=== PATIENT | female | born 1980 | race Caucasian/White ===

== ENCOUNTER 2018-07-30 09:39 | Day surgery (SDC) | payer MEDICARE, SELFPAY ==
--- NOTE | 2018-07-30 09:51 | EKG12_ITS ---
Test Reason : PREOP Blood Pressure : / mmHG Vent. Rate : 076 BPM Atrial Rate : 076 BPM P-R Int : 136 ms QRS Dur : 084 ms QT Int : 382 ms P-R-T Axes : 031 011 035 degrees QTc Int : 429 ms Normal sinus rhythm Normal ECG No previous ECGs available Confirmed by LOGAN MEHTA, FAISAL ([id number]), paintings restorer ADELITA STEINER ([id number]) on 08/05/2018 11:12:04 AM Referred By: Ivy Jeter Confirmed By:FAISAL FORD MD
[2018-07-30 10:05] VITALS: BP 156/100; PULSE 81; RESP 16; TEMP 36.2; O2SAT 100; BMI 32.4
[2018-07-30 10:22] LABS: Internal QC Validated? YES +Cl - CLEAR BKGD; Pregnancy, Urine Negative Negative
[2018-07-30] MEDS: Cefazolin 2 GM in 0.9% Normal Saline 100 ML IV (10:58)
[2018-07-30 10:59] LABS: Hematocrit 37.5 % (37-47); Hemoglobin 12.4 g/dl (12.0-15.0); Mean Corp Hgb Conc 33.1 g/gl (32-36); Mean Corpuscular Hgb 29.2 pg (27.0-32.0); Mean Corpuscular Volume 88.4 fL (81-99); Mean Platelet Vol. 8.9 fl (6.2-12.0); Platelet Count 375 K/mm3 (150-450); RBC Distribution Width SD 44.6 fl (35.1-43.9); Red Blood Count 4.24 M/mm3 (4.2-5.4); White Blood Count 10.2 K/mm3 (4.4-11.0)
[2018-07-30] MEDS: Lubricating Jelly 60 GM Tube 30 GM TOPICAL (10:59)
[2018-07-30 11:01] LABS: Scan Indicated on CBC? Y/N NO
--- NOTE | 2018-07-30 11:10 | BLA_PTH ---
PATIENT: DANNA RUIZ [place] [facility] [id number] AGE/SX: 37/F ROOM: RE07/30/[address]: Dr. Ivy Jeter MD : [id number] BED: DIS: 07/30/2018 SPEC #: [id number] RECD: 07/30/18 14:55 STATUS: MARIELA MARIO #: [id number] RADHA: 07/30/18 11:[address]: Ivy Jeter DEPT: SURGICAL PATHOLOGY RECD BY: Patrick Becker ENTERED: 07/31/18 08:20 SP TYPE: BLADDER BX OTHR DR: Dr. Magnolia Jay DO Tissues: Urinary bladder, NOS Procedures: Surgery Specimen Level IV HEADER OPERATION: Cysto, fulguration, bladder biopsy PRE-OP DIAGNOSIS: Bladder lesion TISSUE SUBMITTED: Bladder biopsies MICROSCOPIC DIAGNOSIS Bladder, biopsy: Fragments of urothelial mucosa with chronic inflammation. Negative for malignancy. See comment. SJ:edelmira 08/01/18 COMMENT Detrusor muscle is not identified in the submitted specimen. Correlation with clinical, cystoscopic findings and appropriate follow up are necessary. MICROSCOPIC DESCRIPTION Slides are reviewed. GROSS DESCRIPTION Received in fixative is one container labeled with the patient's name and designated bladder biopsy. The specimen consists of multiple irregular fragments of light bullard soft tissue that in aggregate measure 0.3 x 0.1 x 0.1 cm. The specimen is totally submitted in one cassette. / DIANA:edelmira 07/31/18 TC:3 CPT: 82487
[2018-07-30 11:29] VITALS: BP 148/95; BP 156/100; PULSE 76; RESP 16; TEMP 36.3; O2SAT 95
--- NOTE | 2018-07-30 11:35 | PCM.IMDPSTOP ---
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
--- NOTE | 2018-07-30 11:38 | OP.PN_ITS ---
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
--- NOTE | 2018-07-30 11:39 | DCINST_ITS ---
Discharge Diet: No Restrictions Discharge Activity: May not drive while taking narcotic pain medications., - - no tub bathing for 1 week. May resume sexual activity in: 1 week Call your doctor if you observe: Fever of 101 or Higher, Inability to urinate, Inability to have a bowel movement, Shortness of breath, Chest pain, Calf discomfort, Uncontrolled pain Allergies/Adverse Reactions: Allergies morphine Adverse Reaction (Verified 07/23/18 15:13) Other Medications to take at Discharge Ibuprofen [Motrin] 400 mg PO Q4H 06/09/17 Cephalexin [Keflex] 500 mg PO Q12 3 Days #6 cap 07/30/18 Lisdexamfetamine Dimesylate [Vyvanse] 40 mg PO DAILY 07/30/18 Oxycodone HCl/Acetaminophen [Percocet 5/325] 1 - 2 tab PO Q6H PRN PRN 7 Days #30 tab 07/30/18 The following prescriptions were given: Oxycodone HCl/Acetaminophen [Percocet 5/325] 1 - 2 tab PO Q6H PRN PRN 7 Days #30 tab PRN Reason: Pain Cephalexin [Keflex] 500 mg PO Q12 3 Days #6 cap Primary Care Physician: Magnolia Jay DO [Primary Care Provider] - Test Results: Test results from this visit will be discussed in further detail at your follow- up appointment, if applicable. Please Follow Up With: Ivy Jeter MD When: 1 week, call for appt Proposed Discharge Date: 07/30/18
--- NOTE | 2018-07-30 11:39 | PCM.OPRPT ---
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 She was evaluated with a cystoscopy and treated with Urogesic-Blue. The cystoscopy revealed diffuse areas of erythematous circular lesions approximately 5 mm in size. After discussing all the risks benefits and alternatives she agreed to proceed with biopsy under anesthesia. Patient was taken to the operating room and placed on the operating room head, the neck, airway, IV access and vital signs throughout the case. Once anesthesia was appropriately administered the patient was placed into dorsal lithotomy position was prepped and draped in usual sterile fashion. A cystourethroscopy was performed revealing the same findings is in the office. There are diffuse 5 mm circular lesions identified throughout the bladder mucosa. Possibly consistent with cystitis cystica versus other inflammatory versus neoplastic process. Four biopsy sites were identified and were sent to pathology for further evaluation. These areas were then fulgurated for hemostatic control. At this time the patient's bladder was emptied and she was awakened and taken to the recovery room in good condition. There were no complications during this procedure. Grafts/Implants Used: none - Complications none - Admit VTE Documentation VTE Present on Admission: Yes VTE Mechan Device Prophylaxis: SCD's VTE Pharm Prophylaxis ordered?: No Reason prophylaxis not ordered:: Treatment Not Indicated
--- NOTE | 2018-07-30 11:43 | OP.PCM_ITS ---
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 She was evaluated with a cystoscopy and treated with Urogesic-Blue. The cystoscopy revealed diffuse areas of erythematous circular lesions approximately 5 mm in size. After discussing all the risks benefits and alternatives she agreed to proceed with biopsy under anesthesia. Patient was taken to the operating room and placed on the operating room head, the neck, airway, IV access and vital signs throughout the case. Once anesthesia was appropriately administered the patient was placed into dorsal lithotomy position was prepped and draped in usual sterile fashion. A cystourethroscopy was performed revealing the same findings is in the office. There are diffuse 5 mm circular lesions identified throughout the bladder mucosa. Possibly consistent with cystitis cystica versus other inflammatory versus neoplastic process. Four biopsy sites were identified and were sent to pathology for further evaluation. These areas were then fulgurated for hemostatic control. At this time the patient's bladder was emptied and she was awakened and taken to the recovery room in good condition. There were no comp lications during this procedure. Grafts/Implants Used: none - Complications none - Admit VTE Documentation VTE Present on Admission: Yes VTE Mechan Device Prophylaxis: SCD's VTE Pharm Prophylaxis ordered?: No Reason prophylaxis not ordered:: Treatment Not Indicated
[2018-07-30 11:44] VITALS: BP 156/100; BP 164/106; PULSE 84; RESP 18; O2SAT 97
[2018-07-30 11:52] VITALS: BP 151/96; BP 156/100; PULSE 79; RESP 18; TEMP 36.3; O2SAT 97
[2018-07-30 12:05] VITALS: BP 156/100
== END 2018-07-30 12:13 | disposition home or self-care (01) ==
LOC: SDC 09:43 → AC 09:43
PROVIDERS: Referring Provider Urology; Visit Provider Urology
PROC: 0TBB8ZZ Excision of Bladder, Via Natural or Artificial Opening Endoscopic (ICD-10-PCS; CPT 52204; principal; 2018-07-30 11:00)
DX: N30.20 Other chronic cystitis without hematuria (principal); R39.15 Urgency of urination; R35.1 Nocturia; N39.41 Urge incontinence; D68.51 Activated protein C resistance; D68.59 Other primary thrombophilia; I10 Essential (primary) hypertension; F90.9 Attention-deficit hyperactivity disorder, unspecified type; F17.200 Nicotine dependence, unspecified, uncomplicated
CPT/HCPCS: 00910; 52204; 81025; 85027; 88305; 93005; J7120; J2405

== ENCOUNTER 2018-12-17 06:35 | Day surgery (SDC) | payer MEDICAID, SELFPAY ==
[2018-12-17] VITALS (8 sets, daily range): BP systolic 108–139; BP diastolic 71–95; PULSE 66–72; RESP 16–18; TEMP 36.3–36.6; O2SAT 95–99; BMI 31.4
--- NOTE | 2018-12-17 08:00 | RAD_ITS ---
STUDY: X-RAY - PELVIS REASON FOR EXAM: Female, 37 years old. InterStim therapy TECHNIQUE: One view of the pelvis was obtained. COMPARISON: None. FINDINGS: 2 fluoroscopic images demonstrate stimulator device at the level of the left sacrum. RAD/Pelvis 1 or 2 Views IMPRESSION: As above Electronically Signed: Julio Hernandez MD at 7:38 EST Tel , Service support ,
--- NOTE | 2018-12-17 09:01 | DCINST_ITS ---
Discharge Diet: No Restrictions Discharge Activity: May not drive while taking narcotic pain medications. May resume sexual activity in: 3 weeks Call your doctor if your incision/area has: Sudden Increased Bleeding, Increased Redness, Foul Smelling Discharge, Swelling at the incision site Call your doctor if you observe: Fever of 101 or Higher, Inability to urinate, Shortness of breath, Chest pain, Calf discomfort, Uncontrolled pain Suture Line Care: Avoid Pulling/Pushing, Avoid Pinching/Bending Cleanse incision/area with: Keep Dressing Clean & Dry Allergies/Adverse Reactions: Allergies morphine Adverse Reaction (Verified 12/12/18 08:47) Other Medications to take at Discharge Ibuprofen [Motrin] 400 mg PO Q4H 06/09/17 Lisdexamfetamine Dimesylate [Vyvanse] 40 mg PO DAILY 07/30/18 Fesoterodine Fumarate [Toviaz] 8 mg PO DAILY 12/12/18 Lansoprazole [Prevacid] 30 mg PO DAILY 12/12/18 Metoprolol Tartrate [Lopressor (Beta Karley)] 50 mg PO QHS 12/12/18 Primary Care Physician: Magnolia Jay DO [Primary Care Provider] - Test Results: Test results from this visit will be discussed in further detail at your follow- up appointment, if applicable. Please Follow Up With: Ivy Jeter MD When: 1 week Proposed Discharge Date: 12/17/18
--- NOTE | 2018-12-17 09:18 | OP.PCM_ITS ---
Problem List (1) Urinary urgency Status: Acute (2) Urinary frequency Status: Acute Report of Operation Date of Procedure: 12/17/18 Pre-Operative Diagnosis: urinary urgency and frequency Post-Operative Diagnosis: same Surgery/Procedure Performed:: Interstim Stage 1 Description of Surgical Findings:: right side lead, right side pocket. Good response on all 4 leads Type of Anesthesia:: MAC Estimated Blood Loss (mL): 3cc Description of Procedure: The patient is a 37-year-old female that I have been seeing in the office for refractory urinary urgency and frequency. She has failed first and second line treatments for this urgency and frequency. She has undergone urodynamics and cystoscopy with bladder biopsy. After discussing the risks benefits and alternatives, she agreed to proceed with InterStim stage I. Informed consent was obtained. Patient was taken to the operating room and placed on the operating room table. She was placed in the prone position and was appropriately padded and secured to the table. Anesthesia monitored the head, neck, airway, IV access and vital signs throughout the case. As the patient was being anesthetized, she made a comment, I am a non-productive drug seeker. Once anesthesia was appropriately administered, the patient was prepped and draped in usual sterile fashion. Using fluoroscopic visualization the patient's anatomy was marked out onto her skin. The S3 foramen insertion site was identified and marked. This area was then anesthetized with 1% lidocaine with epinephrine. The S3 foramen on the right side was then intubated with the needle and good judd and toe response were achieved. At this time the guidewire was passed in an incision in the skin was made. The dilator was then used to place the lead into the S3 foramen and positioning was confirmed on fluoroscopic visualization. The lead was tested in all 4 leads received a good judd and toe contraction without ankle or foot rotation. The lead was then tunneled to the selected boot site which was made using a knife and Bovie cautery for hemostatic control. The lead was inserted into the lead extension and fixed using the torque wrench. The lead extension was then tunneled out to a cephalad position to prevent issues with infection. Was then attached to the temporary battery. The incision sites both in the midline and the boot incision site were closed using 3-0 interrupted Vicryl suture followed by 4-0 subcuticular suturing. Dermabond was then allowed to dry on the incision sites. An OpSite followed by cloth tape was placed over the battery. The patient was then awakened and taken to the recovery room in go od condition. There were no complications during this procedure. Grafts/Implants Used: Interstim Stage 1 lead - Complications none - Admit VTE Documentation VTE Present on Admission: No VTE Mechan Device Prophylaxis: None VTE Pharm Prophylaxis ordered?: No Reason prophylaxis not ordered:: Treatment Not Indicated
--- NOTE | 2018-12-24 10:43 | PCM.HP.STD ---
Problem List (1) Urinary urgency Status: Acute (2) Urinary frequency Status: Acute History of Present Illness Date of Admission: 12/17/18 Chief Complaint: Urinary frequency, urinary urgency, nocturia. The patient is a 37 year old F with severe urinary urgency, frequency and nocturia. She has been unable to sleep through the night for several months. She has failed level 1 management, multiple anticholinergics as well as a beta 3 agonist. She has been evaluated with cystoscopy, bladder biopsy and urodynamics. After discussing all the risks benefits and alternatives, she decided to proceed with InterStim stage I for treatment of her symptoms. All questions regarding the procedure were answered. Past Medical History Allergies morphine Adverse Reaction (Verified 12/12/18 08:47) Other Home Medications: Ambulatory Orders Medication Instructions Recorded Ibuprofen [Motrin] 400 mg PO Q4H 06/09/17 Lisdexamfetamine Dimesylate 40 mg PO DAILY 07/30/18 [Vyvanse] Fesoterodine Fumarate [Toviaz] 8 mg PO DAILY 12/12/18 Lansoprazole [Prevacid] 30 mg PO DAILY 12/12/18 Metoprolol Tartrate [Lopressor 50 mg PO QHS 12/12/18 (beta mima)] Surgical History: - - cystoscopy and bladder biopsy Lives: With Family Smoking Status: Current every day smoker Tobacco Use: Cigarettes Review of Systems Constitutional: Denies: Anorexia, Chills, Fever, Night Sweats Eyes: Denies: Vision Change HEENT: Denies: Difficulty Swallowing, Hard of Hearing, Visual Changes Cardiovascular: Denies: Chest Pain, Chest Tightness Respiratory: Denies: Cough, Shortness of Breath Gastrointestinal: Denies: Abdominal Pain Genitourinary: Reports: Frequency, Nocturia, Urgency Gynecological: Denies: Breast symptoms Musculoskeletal: Denies: Muscle pain Skin: Denies: Rash Neurological: Denies: Balance problems Endocrine: Denies: Change in Body Habitus VTE Information - Inpt Only VTE Present on Admission: No - Interstim needs access without SCD to feet - Physical Exam General: Alert, Oriented x3, Cooperative HEENT: Atraumatic, Normocephalic Oral: Dry Mucosa Neck: Supple, Trachea Midline Lungs: Clear to auscultation, Normal air movement Cardiovascular: Regular rate, Regular Rhythm Abdomen: Soft, Non Tender, Non-Distended Extremities: No clubbing Skin: No rashes Musculoskeletal: No Tenderness to Palpation of Joints or Extremities Neurological: Cranial nerves II-XII grossly intact, Neuro grossly intact Psych/Mental Status: Normal Affect Vital Signs Temp Pulse Resp BP Pulse Ox 97.3 F L 66 18 118/84 H 95 12/17/18 09:27 12/17/18 09:27 12/17/18 09:27 12/17/18 09:27 12/17/18 09:27 Oxygen Delivery Method Room Air Weight: 80.6 kg Body Mass Index (BMI) 31.4 Assessment/Plan All Active Problems Bladder neoplasm of uncertain malignant potential (Acute) Urinary urgency (Acute) Urinary frequency (Acute) Interstim Stage 1
== END 2018-12-17 10:19 | disposition home or self-care (01) ==
LOC: SDC 06:35 → AC 06:37
PROVIDERS: Referring Provider Urology
PROC: (CPT 64581; principal; 2018-12-17 07:50)
DX: R35.0 Frequency of micturition (principal); R39.15 Urgency of urination; R35.1 Nocturia; I10 Essential (primary) hypertension; F17.210 Nicotine dependence, cigarettes, uncomplicated; Z79.899 Other long term (current) drug therapy; Z86.2 Personal history of diseases of the blood and blood-forming organs and certain disorders involving the immune mechanism
CPT/HCPCS: 64581; 72170; 76000; J7120; C1778

== ENCOUNTER 2018-12-31 06:26 | Day surgery (SDC) | payer MEDICAID, SELFPAY ==
[2018-12-17 07:02] VITALS: BMI 31.4
[2018-12-31] VITALS (7 sets, daily range): BP systolic 113–141; BP diastolic 64–95; PULSE 68–87; RESP 14–18; TEMP 35.7–36.7; O2SAT 93–99; BMI 30.7
--- NOTE | 2018-12-31 09:05 | OP.PCM_ITS ---
Problem List (1) Urinary urgency Status: Acute (2) Urinary frequency Status: Acute Report of Operation Date of Procedure: 12/31/18 Pre-Operative Diagnosis: urinary urgency and frequency Post-Operative Diagnosis: same Surgery/Procedure Performed:: Interstim Stage 2 Description of Surgical Findings:: no complications, no sign of infection, no impedances. Type of Anesthesia:: MAC Special Medications: vancomycin Description of Procedure: The patient is a 38-year-old female that has passed her stage I InterStim with the lead in the right side. She has had over a 50% reduction in the urgency and frequency to urinate. All benefits and alternatives were discu ssed and the patient agreed to proceed with intervention. The patient was taken to the operating room and placed in a prone position on the operating room table. She was secured and appropriately padded to the table. Anesthesia monitored the head, neck, airway, IV access and vital signs throughout the case. Once anesthesia was appropriately administered, the patient was prepped and draped in usual sterile fashion. The is a incision site over the boot was identified and infiltrated with lidocaine. The incision was opened and the boot was identified and brought into the operative field. The sutures on the boot were cut and using the torque wrench the lead was removed from the boot. The pocket size was enlarged to fit the IPG. Hemostasis was achieved with Bovie cautery. The lead was dried and inserted into the IPG and secured with the torque wrench. The IPG was then placed into the pocket without difficulty. Impedances were checked and were found to be appropriate. At this time the incision was closed in 2 layers with 3-0 Vicryl interrupted suture followed by 4-0 subcuticular suture. The incision was then coated with Dermabond. The patient was awakened and taken to the recovery room in good condition. There were no complications during this procedure. Grafts/Implants Used: Interstim IPG - Complications None - Admit VTE Documentation VTE Present on Admission: Yes VTE Mechan Device Prophylaxis: SCD's VTE Pharm Prophylaxis ordered?: No Reason prophylaxis not ordered:: Treatment Not Indicated
--- NOTE | 2018-12-31 09:07 | DCINST_ITS ---
Discharge Diet: No Restrictions Discharge Activity: May not drive while taking narcotic pain medications., May Shower May resume sexual activity in: No Restrictions Call your doctor if your incision/area has: Continuous Slow Oozing, Sudden Increased Bleeding, Increased Pain/ Swelling, Increased Redness, Foul Smelling Discharge, Swelling at the incision site Call your doctor if you observe: Fever of 101 or Higher, Inability to urinate, Shortness of breath, Chest pain, Calf discomfort Suture Line Care: Avoid Pulling/Pushing, Avoid Pinching/Bending Allergies/Adverse Reactions: Allergies morphine Adverse Reaction (Verified 12/12/18 08:47) Other Medications to take at Discharge Ibuprofen [Motrin] 400 mg PO Q4H 06/09/17 Lisdexamfetamine Dimesylate [Vyvanse] 40 mg PO DAILY 07/30/18 Fesoterodine Fumarate [Toviaz] 8 mg PO DAILY 12/12/18 Lansoprazole [Prevacid] 30 mg PO DAILY 12/12/18 Metoprolol Tartrate [Lopressor (beta mima)] 50 mg PO QHS 12/12/18 Cephalexin [Keflex] 500 mg PO Q12 3 Days #6 cap 12/31/18 Oxycodone HCl/Acetaminophen [Percocet 5/325] 1 tab PO Q6H PRN PRN 7 Days #20 tab 12/31/18 The following prescriptions were given: Oxycodone HCl/Acetaminophen [Percocet 5/325] 1 tab PO Q6H PRN PRN 7 Days #20 tab PRN Reason: Pain Cephalexin [Keflex] 500 mg PO Q12 3 Days #6 cap Primary Care Physician: Magnolia Jay DO [Primary Care Provider] - Test Results: Test results from this visit will be discussed in further detail at your follow- up appointment, if applicable. Please Follow Up With: Ivy Jeter MD When: 1 week, call for appt for Interstim teaching. Proposed Discharge Date: 12/31/18
== END 2018-12-31 09:21 | disposition home or self-care (01) ==
LOC: SDC 06:27 → AC 06:28
PROVIDERS: Referring Provider Urology; Visit Provider Urology
PROC: (CPT 64581; principal; 2018-12-31 07:50)
DX: R39.15 Urgency of urination (principal); R35.0 Frequency of micturition; D68.51 Activated protein C resistance; D68.59 Other primary thrombophilia; I10 Essential (primary) hypertension; F90.9 Attention-deficit hyperactivity disorder, unspecified type; F17.210 Nicotine dependence, cigarettes, uncomplicated; Z79.899 Other long term (current) drug therapy
CPT/HCPCS: 64581; 64590; J7120; C1767

== ENCOUNTER 2019-02-11 06:01 | Day surgery (SDC) | payer MEDICAID, SELFPAY ==
[2018-12-31 06:42] VITALS: BMI 30.7
[2019-02-11] VITALS (7 sets, daily range): BP systolic 117–142; BP diastolic 70–100; PULSE 63–76; RESP 14–46; TEMP 36.1–36.4; O2SAT 96–100; BMI 30.8
[2019-02-11] MEDS: Vancomycin IV 1,000 MG/200 ML BAG 200 MG IV (06:38)
--- NOTE | 2019-02-11 08:00 | RAD_ITS ---
STUDY: X-RAY - PELVIS REASON FOR EXAM: Female, 38 years old. Revised interstem therapy 1 TECHNIQUE: 3 view of the pelvis was obtained. COMPARISON: None. FINDINGS: Intraoperative spot fluoroscopy images were obtained. Placement of a medical support devices are the sacrum and coccyx. Bilateral pleural wires are noted. Please see performing physician's report for full details. RAD/Pelvis 1 or 2 Views IMPRESSION: As above Electronically Signed: Rolando Perez DO at 10:37 EDT Tel , Service support ,
--- NOTE | 2019-02-11 09:07 | PCM.OPRPT ---
Problem List (1) Urinary urgency Status: Acute (2) Urinary frequency Status: Acute Report of Operation Date of Procedure: 02/11/19 Pre-Operative Diagnosis: urinary urgency and urinary frequency Post-Operative Diagnosis: same Surgery/Procedure Performed:: Interstim Revision with Lead Replacement. Description of Surgical Findings:: New lead on patient's left side in good position in S3, judd on all 4 leads. Old lead left insitu as it worked really well, but patient was having pain. Type of Anesthesia:: MAC Special Medications: Vancomycin Specimen's removed: none Estimated Blood Loss (mL): 3cc Description of Procedure: The patient is a 38-year-old female who had a successful InterStim placed. She presented to the office 1 week ago with complaints of pain at the lead insertion site. The pain did not extend down her leg. It did not go away when the programming was adjusted. She agreed to proceed with lead replacement. All risks benefits and alternatives were discussed and informed consent was obtained. Patient was taken to the operating room and placed in a prone position on the operating room table. Anesthesia monitored the head, neck, airway, IV access and vital signs throughout the case. Once anesthesia was appropriately administered the patient was prepped and draped in usual sterile fashion. Fluoroscopy was utilized for appropriate positioning of the new lead. The lead was inserted on the patient's left side and judd response was obtained on all 4 leads. 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 The lead was inserted in usual fashion with use of a guidewire followed by the dilator. The curved obturator was used for lead placement. Once it was in good position the dilator sheath was removed. The incision over the IPG was infiltrated with lidocaine and then opened. Caution was used and dissection in the IPG was identified without injuring the existing lead. The lead was removed from the IPG using the torque wrench. The pocket site was deepened. The new lead was then tunneled into position of the existing pocket site. It was placed into the IPG and the torque wrench secured it in location. It was placed into the new deepened pocket site without difficulty. Was tested for impedances and found to be appropriate. The pocket was closed in 2 layers using 3-0 interrupted Vicryl followed by 4-0 subcuticular suturing. The lead on the patient's right side worked very well for her and I made the decision to leave the lead in situ for the time being. The new lead insertion site was closed using 4-0 Vicryl. Dermabond was placed over both incisions. Following appropriate drying time, the patient was awakened and taken to the recovery room in good condition. There were no complications during this procedure. Grafts/Implants Used: New Interstim lead - Complications none - Admit VTE Documentation VTE Present on Admission: No VTE Mechan Device Prophylaxis: None Reason prophylaxis not ordered:: Treatment Not Indicated
--- NOTE | 2019-02-11 09:11 | DCINST_ITS ---
Discharge Diet: No Restrictions Discharge Activity: May not drive while taking narcotic pain medications. May shower in (days): 2 May resume sexual activity in: 1 week Call your doctor if your incision/area has: Continuous Slow Oozing, Increased Pain/ Swelling, Increased Redness, Foul Smelling Discharge, Swelling at the incision site Call your doctor if you observe: Fever of 101 or Higher, Inability to urinate, Shortness of breath, Chest pain, Calf discomfort, Uncontrolled pain Allergies/Adverse Reactions: Allergies morphine Adverse Reaction (Verified 02/05/19 13:17) Other Medications to take at Discharge Ibuprofen [Motrin] 400 mg PO Q4H PRN 06/09/17 Lisdexamfetamine Dimesylate [Vyvanse] 40 mg PO DAILY 07/30/18 Metoprolol Tartrate [Lopressor (beta mima)] 50 mg PO QHS 12/12/18 Primary Care Physician: Magnolia Jay DO [Primary Care Provider] - Test Results: Test results from this visit will be discussed in further detail at your follow- up appointment, if applicable. Please Follow Up With: Ivy Jeter MD When: 2 weeks, call office for appt. Proposed Discharge Date: 02/11/19
[2019-02-11] MEDS: Acetaminophen 325 MG Tablet PO (10:03)
[2019-02-11] MEDS: oxyCODONE 5 MG Tablet PO (10:03)
== END 2019-02-11 10:23 | disposition home or self-care (01) ==
LOC: SDC 06:02 → AC 06:03
PROVIDERS: Referring Provider Urology; Visit Provider Urology
PROC: (CPT 64585; principal; 2019-02-11 07:50)
DX: R35.0 Frequency of micturition (principal); R39.15 Urgency of urination; N30.10 Interstitial cystitis (chronic) without hematuria; N39.41 Urge incontinence; R35.1 Nocturia; R10.2 Pelvic and perineal pain; D68.51 Activated protein C resistance; D68.59 Other primary thrombophilia; I10 Essential (primary) hypertension; F90.9 Attention-deficit hyperactivity disorder, unspecified type; F17.200 Nicotine dependence, unspecified, uncomplicated; Z79.899 Other long term (current) drug therapy; Z87.19 Personal history of other diseases of the digestive system; Z86.2 Personal history of diseases of the blood and blood-forming organs and certain disorders involving the immune mechanism
CPT/HCPCS: 00300; 64585; 72170; 76000; J7120; C1778

== ENCOUNTER 2020-03-11 07:34 | Day surgery (SDC) | payer MEDICAID, SELFPAY ==
[2019-02-11 06:21] VITALS: BMI 30.8
[2020-03-11] VITALS (9 sets, daily range): BP systolic 109–171; BP diastolic 65–95; PULSE 46–79; RESP 15–16; TEMP 36.2–36.4; O2SAT 92–98; BMI 33.8
[2020-03-11] MEDS: Lactated Ringers 1,000 ML 100 ML IV (08:15)
--- NOTE | 2020-03-11 09:16 | PCM.HP.STD ---
Problem List (1) Ureteral calculus, left Status: Acute (2) Hydronephrosis Status: Acute History of Present Illness Date of Admission: 03/11/20 Chief Complaint: left flank pain The patient is a 39 year old F who has been having approximately 2 weeks of left-sided flank pain along with nausea and vomiting. She was seen in the emergency room and found to have a 7 mm UVJ calculus with hydronephrosis. She now presents for insertion of left ureteral stent secondary to fever at home this week up to 102. We discussed that we will plan on managing the stone after decompression and drainage of the kidney. Risks benefits and alternatives were discussed including that of COVID-19. The patient understands and desires to proceed. Past Medical History Allergies morphine Adverse Reaction (Verified 03/11/20 07:55) Other Home Medications: Ambulatory Orders Medication Instructions Recorded Ibuprofen [Motrin] 400 mg PO Q4H PRN 06/09/17 Lisdexamfetamine Dimesylate 40 mg PO DAILY 07/30/18 [Vyvanse] Metoprolol Tartrate [Lopressor 50 mg PO QHS 12/12/18 (beta mima)] Cephalexin [Keflex] 500 mg PO 4X/DAY 03/10/20 Surgical History: - - cystoscopy and bladder biopsy Smoking Status: Current every day smoker Tobacco Use: Cigarettes Review of Systems Constitutional: Reports: Fever, Fatigue Eyes: Denies: Vision Change HEENT: Denies: Difficulty Hearing Cardiovascular: Denies: Chest Pain, Chest Pressure Respiratory: Denies: Shortness of Breath Gastrointestinal: Reports: Abdominal Pain, Nausea, Vomiting Genitourinary: Reports: Frequency, Urgency Musculoskeletal: Denies: Muscle pain Skin: Denies: Wounds Neurological: Denies: Difficulty swallowing VTE Information - Inpt Only VTE Present on Admission: Yes VTE Mechan Device Prophylaxis: SCD's VTE Pharm Prophylaxis ordered?: No Reason prophylaxis not ordered:: Treatment Not Indicated Patient Problems: Active and Suspected Problems Ureteral calculus, left (Acute) Hydronephrosis (Acute) - Physical Exam Vitals/I&O's: Vital Signs Temp Pulse Resp BP Pulse Ox 97.6 F L 76 15 152/93 H 98 03/11/20 08:01 03/11/20 08:01 03/11/20 08:01 03/11/20 08:01 03/11/20 08:01 Oxygen Delivery Method Room Air Weight: 83.9 kg Body Mass Index (BMI) 33.8 General: Alert, Oriented x3, Cooperative, No apparent distress HEENT: Atraumatic, Normocephalic Oral: Moist Mucosa Neck: Supple, Trachea Midline Lungs: Normal air movement Cardiovascular: Regular rate, Regular Rhythm Abdomen: Soft, Non Tender, Non-Distended Skin: No rashes Musculoskeletal: No Muscle Wasting Neurological: Cranial nerves II-XII grossly intact, Neuro grossly intact Psych/Mental Status: Normal Affect Microbiology Past 72 Hours 03/10/20 17:00 Mucosa - Nasopharyngeal Coronavirus COVID-19 PCR - Final Laboratory Results 03/11/20 09:20: COVID-19 (KALANI) Cancelled Current Medications Lactated Ringer's () 1,000 mls @ 100 mls/hr IV .Q10H JANI Last Admin: 03/11/20 08:15 Dose: 100 mls/hr Documented by: Assessment/Plan All Active Problems Bladder neoplasm of uncertain malignant potential (Acute) Urinary urgency (Acute) Urinary frequency (Acute) Ureteral calculus, left (Acute) Hydronephrosis (Acute) cystoscopy with left ureteral stent insertion stone treatment in 1-2 weeks Procedure Criteria Procedure Type: Essential Procedure Essential: Yes Criteria Statement: On 12/30/2019 the [place] [facility] ([facility]) Public Order signed by [facility] Director Kate Rondon M.D., regarding the Management of Non-Essential Surgeries and Procedures for the purpose of preserving Personal Protective Equipment (PPE) and critical hospital capacity and resources within [place] went into effect as of 12/31/2019 at 5:00PM. According to the [facility] Public Order: This action will remain in full force and effect until the State of Emergency declared by the Governor no longer exists or the Director of the [facility] rescinds or modifies this Order. This [facility] order stated all non-essential or elective surgeries and procedures that utilize PPE should be delayed unless there is undue risk to the current or future health of a patient. After reviewing the aforementioned [facility] Public Order and the patient's clinical case, I have determined that the scheduled procedure meets the criteria to go forward. Risk to Patient if Procedure Delayed: Risk of rapidly worsening to severe symptoms if delayed - risk of left ureteral obstruction with sepsis
--- NOTE | 2020-03-11 09:21 | DCINST_ITS ---
Discharge Diet: No Restrictions Discharge Activity: May not drive while taking narcotic pain medications. May resume sexual activity in: 2 weeks Call your doctor if you observe: Fever of 101 or Higher, Inability to urinate, Inability to have a bowel movement Allergies/Adverse Reactions: Allergies morphine Adverse Reaction (Verified 03/11/20 07:55) Other Medications to take at Discharge Ibuprofen [Motrin] 400 mg PO Q4H PRN 06/09/17 Lisdexamfetamine Dimesylate [Vyvanse] 40 mg PO DAILY 07/30/18 Metoprolol Tartrate [Lopressor (beta mima)] 50 mg PO QHS 12/12/18 Cephalexin [Keflex] 500 mg PO 4X/DAY 03/10/20 Primary Care Physician: Magnolia Jay DO [Primary Care Provider] - Test Results: Test results from this visit will be discussed in further detail at your follow- up appointment, if applicable. Please Follow Up With: Ivy Jeter MD When: call office for instructions Proposed Discharge Date: 03/11/20
--- NOTE | 2020-03-11 09:22 | OP.PCM_ITS ---
Problem List (1) Ureteral calculus, left Status: Acute (2) Hydronephrosis Status: Acute Report of Operation Date of Procedure: 03/11/20 Pre-Operative Diagnosis: left ureteral calculus with hydronephrosis Post-Operative Diagnosis: same Surgery/Procedure Performed:: cystoscopy with left ureteral stent insertion Description of Surgical Findings:: The stone is easily seen on fluoroscopy in the distal left ureter Type of Anesthesia:: General Specimen's removed: none Estimated Blood Loss (mL): 2cc Description of Procedure: The patient is a 39-year-old female who presented to the office yesterday after having been in the emergency room for uncontrolled pain in the left flank along with nausea and vomiting. On CT scan she was found to have a 7 mm left ureterovesical junction calculus with hydronephrosis. Risks benefits and alternatives were discussed and she agreed to proceed with a left ureteral stent insertion. The patient was taken to the operating room and placed on the operating room table. Anesthesia monitored the head, neck, airway, IV access and vital signs throughout the case. Once anesthesia was appropriately administered the patient was placed into dorsal lithotomy position and was prepped and draped in usual sterile fashion. 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 The left ureteral orifice was identified in the area of the trigone and was intubated with the 0.035 Glidewire. The stone was easily seen on fluoroscopic visualization. A 6 Lithuanian 24 cm double-J stent was inserted over the wire without difficulty and was positioned inside the renal pelvis with curling in the bladder. The patient's bladder was then emptied and the case was terminated. There were no complications during this procedure. Grafts/Implants Used: 6x24 JJ stent - Complications none - Admit VTE Documentation VTE Present on Admission: Yes VTE Mechan Device Prophylaxis: SCD's VTE Pharm Prophylaxis ordered?: No Reason prophylaxis not ordered:: Treatment Not Indicated
[2020-03-11] MEDS: Cefazolin 2 GM in 0.9% Normal Saline 100 ML IV (09:26)
--- OUTSIDE RECORDS SUMMARY | 2020-07-27 18:21 | XMS RPT_ITS | CCD ---
:1980 External Reference #:[id number] Author Organization [facility] Care Team Providers Name Role Phone WISWELL Unavailable Unavailable WISWELL Unavailable Unavailable WISWELL Unavailable Unavailable WISWELL Unavailable Unavailable WISWELL Unavailable Unavailable WISWELL Unavailable Unavailable Pcp Primary Care Provider Unavailable Yana Cruz Primary Care Provider Pcp Primary Care Provider Unavailable Garrett Jay Primary Care Provider Problems Category Problem Name Status Date Location Abdominal pain Pelvic and perineal pain Active 06-14-2018 - [facility] (0000 0) Unclassified Unknown / UNK(Unknown) Active 06-14-2018 - [facility] (0000 0) Results Result Name Value Range Unit Interpretation Flag Date Location cur on 2020-03-11 CUR . Normal 03-11-2020 [facility] MICRO - Microbiology [facility] ([place]) ([id number]) PROCEDURE: Urine Culture [*1] SOURCE: Urine, Clean Catch BODY SITE: COLLECTED DATE/TIME: 03/09/20 16:14 EDT RECEIVED DATE/TIME: 03/10/2020 19:59 EDT START DATE/TIME: 03/10/2020 19:59 EDT FREE TEXT SOURCE: FINAL REPORTS Final Report [] Verified Date/Time/Personnel: 03/11/2020 13:56 EDT 10,000 - 50,000 cfu/ml Multiple bacterial morphotypes presen t. Probable Contamination. Suggest recollection if clinically indicated. Performing Locations *1: This test was performed at: [facility], [address] [place] [address], [id number]- , U nited [facility] Comment: Performed By: #### CBC, ADIF F, ANEU, LIP, CMP, GFR #### [address] [address] ua on 2020-03-09 Color (U) Yellow Normal 03-09-2020 [facility] ([place]) ([id number]) Comment: Performed By: #### UA, PREGU , UAMICAO #### [address] [address] Glucose (U) [Mass/Vol] Negative Negative mg/dL Normal 020 [facility] ([place]) ([id number]) Comment: Performed By: #### UA, PREGU , UAMICAO #### [address] [address] Ketones Ql (U) Negative Negative Normal 03-09-2020 [facility] ([place]) ([id number]) Comment: Performed By: #### UA, PREGU , UAMICAO #### [address] [address] UA Appear Slightly Cloudy Clear Abnormal 03-09-2020 [facility] ([place]) ([id number]) Comment: Performed By: #### UA, PREGU , UAMICAO #### [address] [address] UA Blood Small Negative Abnormal 03-09-2020 [facility] ([place] ([id number]) Comment: Performed By: #### UA, PREGU , UAMICAO #### [address] [address] UA Leuk Est Moderate Negative Abnormal 03-09-2020 [facility] ([place]) ([id number]) Comment: Performed By: #### UA, PREGU , UAMICAO #### [address] [address] UA Nitrite Negative Negative Normal 03-09-2020 [facility] ([place]) ([id number]) Comment: Performed By: #### UA, PREGU , UAMICAO #### [address] [address] UA pH 7.0 5.0 - 8.0 Normal 03-09-2020 [facility] ([place] ([id number]) Comment: Performed By: #### UA, PREGU , UAMICAO #### [address] [address] UA Protein Negative Negative Normal 03-09-2020 [facility] ([place]) ([id number]) Comment: Performed By: #### UA, PREGU , UAMICAO #### [address] [address] UA Spec Grav 1.020 1.015-1.025 Normal 03-09-2020 [facility] ([place]) ([id number]) Comment: Performed By: #### UA, PREGU , UAMICAO #### [address] [address] UA Specimen Type Clean Catch Normal 03-09-2020 [facility] ([place]) ([id number]) Comment: Performed By: #### UA, PREGU , UAMICAO #### [address] [address] UA Urobilinogen 0.2 0.2-1.0 E.U./dL Normal 03-09-2020 [facility] ([place]) ([id number]) Comment: Performed By: #### UA, PREGU , UAMICAO #### [address] [address] Urobilinogen Qn (U) Negative Negative Normal 03-09-2020 [facility] ([place]) (0000 0) Comment: Performed By: #### UA, PREGU , UAMICAO #### [address] [address] pregu on 2020-03-09 HCG ( test) Ql (U) Negative Normal [facility] ([place]) (0000 0) Comment: Performed By: #### UA, PREGU , UAMICAO #### [address] [address] test (u) int HCG not detected. 03-09-2020 [facility] ([place]) (0000 0) Comment: Performed By: #### UA, PREGU , UAMICAO #### [facility] [address], [place] [address] lip on 2020-03-09 Lipase Level 69 73-393 U/L Low 03-09-2020 [facility] ([place]) ([id number]) Comment: Performed By: #### CBC, ADIF F, ANEU, LIP, CMP, GFR #### [facility] [address], [place] [address] ct abd/pelvis w/ iv contrast only on 2020-03-09 CT ABD/PELVIS W/ ORIGINAL Normal 03-09-2020 [facility] IV CONTRAST ONLY CT ABD/PELVIS W/ IV CONTRAST ONLY [facility] ([place]) ([id number]) Clinical Statement: pain. Up per abdominal pain and pressure for one week. Nausea and vomiting COMPARISON: CT abdomen pelvis 07/24/2018, 06/02/2017 TECHNIQUE: Axial images were obtained from the lung bases through the pubic symphysis after the administration of IV contrast. Coronal and sagittal reformatted images were generated from the axial datas et. This exam was performed according to our departmental dose optimization program, and includes the following measures where applicable: automated exposure control, adjustment of the mAs and/or kVp ac cording to patient size and/ or exam, and an iterative reconstruction algorithm. FINDINGS: There is mild depe ndent atelectasis in lung bases. Included heart chambers are within normal limits in size. No pleural pericardial fluid is seen. Tiny subcentimeter hypodensi ty in the RIGHT hepatic lobe is too small to characterize however statistically favored to be of benign etiology. The liver is otherwise unremarkable in appearance. Diffuse f atty change is not excluded. Gallbladder is absent. The spleen, pancreas, and adrenal glands are within normal limits in appearance. There is bilateral nephrolithiasis similar in appearance to prior you dy. There is mild left-sided pelvocaliectasis and ureteral dilatation to the level of a 7 mm calculus at the LEFT UV junction on image #103 of series 2. This is not seen on the earlier study. There is a LEFT renal exophy tic cyst which appears mildly increased in size from the prior study of 2017, and measures approximately 33 Hounsfield units in density. The urinary bladder is under distended and not evaluated. The uterus is present and normal in appearance. No adnexal masses seen. A dominant follicle is seen in the RIGHT ovary. There is diverticulosis with out evidence of diverticulitis. Otherwise the large and small bowel are normal in course and caliber. No pericecal inflammation is seen. No intra-abdominal free air or fluid is seen. Medical implant in the RIGHT lower back/buttock is incidentally noted. The aorta is nonaneurysmal. No pathologically enlarged abdominal or pelvic lymph node is identified. There are a few scattered prominent retroperitoneal nodes similar appearance to the prior study. No acute osseous abnormality is seen. There is degenerative change in the lumbar spine with moderate to severe lower lumbar spine facet arthropathy. IMPRESSION: There is a calculus at the L EFT UV junction causing mild obstruction. There are bilateral intrarenal calculi also. LEFT renal cortical cyst is larger or new from 2017 and measures approximately 33 Hounsfield units in density. This is considered indeterminate and follow-up with a nonemergent renal ultrasound is suggested.. Other chronic and incidental findings as above. REPORT CORRECTION CORRECTION: LEFT UVJ stone causing mild obstruction. I have personally reviewed t he images of this examination and edited the preliminary report. Roberth Herman MD called these results to HAVEN ZIEGLER on 03/09/2020 5:54 PM. Interpreted By: Roberth Herman MD Preliminary Report By: Giorgio Pompa MD Electronically Signed By: Roberth Herman MD Dictated Date: 03/09/2020 4:48:46 PM Prelim Date: 03/09/2020 4:59:20 PM Sign Date: 03/09/2020 5:57:13 PM Ordering Provider:Haven Ziegler cmp on 2020-03-09 Albumin [Mass/Vol] 3.5 3.5-5.0 G/dL Normal 03-09-2020 [facility] ([place]) ([id number]) Comment: Performed By: #### CBC, ADIF F, ANEU, LIP, CMP, GFR #### [facility] [place] [address], [place] [address] Albumin/Globulin [Mass ratio] 0.9 1.1-2.5 ratio Low 03-09-2020 [facility] ([place]) ([id number]) Comment: Performed By: #### CBC, ADIF F, ANEU, LIP, CMP, GFR #### [address] [address] ALP [Catalytic activity/Vol] 117 40-135 U/L Normal 0 03-09-2020 [facility] ([place]) ([id number]) Comment: Performed By: #### CBC, ADIF F, ANEU, LIP, CMP, GFR #### [address] [address] ALT [Catalytic activity/Vol] 29 10-35 U/L Normal 0 03-09-2020 [facility] ([place]) (0000 0) Comment: Performed By: #### CBC, ADIF F, ANEU, LIP, CMP, GFR #### [address] [address] AST [Catalytic activity/Vol] 11 10-40 U/L Normal 0 03-09-2020 [facility] ([place]) (0000 0) Comment: Performed By: #### CBC, ADIF F, ANEU, LIP, CMP, GFR #### [address] [address] Bili Total 0.3 0.2-1.0 mg/dL Normal 03-09-2020 [facility] ([place]) ([id number]) Comment: Result Comment: Use of this assay is not recommended for patients undergoing treatment with eltrombopag d ue to the potential for falsely elevated results. Performed By: #### CBC, ADIF F, ANEU, LIP, CMP, GFR #### [address] [address] Calcium [Mass/Vol] 8.8 8.4-10.2 mg/dL Normal 03-09-2020 [facility] ([place]) (0000 0) Comment: Performed By: #### CBC, ADIF F, ANEU, LIP, CMP, GFR #### [address] [address] Chloride [Moles/Vol] 101 98-107 mmol/L Normal 0 [facility] ([place]) (0000 0) Comment: Performed By: #### CBC, ADIF F, ANEU, LIP, CMP, GFR #### [address] [address] CO2 [Moles/Vol] 26 22-29 mmol/L Normal 03-09-2020 [facility] ([place]) ([id number]) Comment: Performed By: #### CBC, ADIF F, ANEU, LIP, CMP, GFR #### [address] [address] Creatinine [Mass/Vol] 0.68 0.55-1.02 mg/dL Normal 03-09-20 [facility] ([place]) ([id number]) Comment: Performed By: #### CBC, ADIF F, ANEU, LIP, CMP, GFR #### [address] [address] Electrolyte Balance 11.0 mEq/L Normal 03-09-2020 [facility]) (60975) Comment: Performed By: #### CBC, ADIF F, ANEU, LIP, CMP, GFR #### [address] [address] Globulin (S) [Mass/Vol] 3.7 G/dL Normal 2019 [facility] ([place]) (47979) Comment: Performed By: #### CBC, ADIF F, ANEU, LIP, CMP, GFR #### [address] [address] Glucose [Mass/Vol] 92 70-105 mg/dL Normal 03-09-2020 [facility] ([place]) (54701) Comment: Performed By: #### CBC, ADIF F, ANEU, LIP, CMP, GFR #### [address] [address] Potassium [Moles/Vol] 4.2 3.5-5.1 mmol/L Normal 03-09-20 [facility] ([place]) (0000 0) Comment: Performed By: #### CBC, ADIF F, ANEU, LIP, CMP, GFR #### [address] [address] Protein [Mass/Vol] 7.2 6.4-8.2 G/dL Normal 03-09-2020 [facility] ([place]) ([id number]) Comment: Performed By: #### CBC, ADIF F, ANEU, LIP, CMP, GFR #### [address] [address] Sodium [Moles/Vol] 138 136-145 mmol/L Normal 03-09-2020 [facility] ([place]) (0000 0) Comment: Performed By: #### CBC, ADIF F, ANEU, LIP, CMP, GFR #### [address] [address] Urea nitrogen [Mass/Vol] 7 7-18 mg/dL Normal 03-09 [facility] ([place]) (0000 0) Comment: Performed By: #### CBC, ADIF F, ANEU, LIP, CMP, GFR #### [address] [address] Urea nitrogen/Creatinine [Mass 10 7-27 ratio Normal 03-09-2020 [facility] ratio] [facility] ([place]) (77590) Comment: Performed By: #### CBC, ADIF F, ANEU, LIP, CMP, GFR #### [address] [address] cbc on 2020-03-09 Erythrocyte distribution 15.0 11.5-14.5 % High 03-09 [facility] width (RBC) [Ratio] ([place]) (01808) Comment: Performed By: #### CBC, ADIF F, ANEU, LIP, CMP, GFR #### [address] [address] Hematocrit (Bld) [Volume 38.5 37.0-47.0 % Normal 03-09 [facility] fraction] ([place]) (0000 0) Comment: Performed By: #### CBC, ADIF F, ANEU, LIP, CMP, GFR #### [address] [address] Hemoglobin (Bld) 13.1 12.0-16.0 G/dL Normal 03-09-2020 [facility] [Mass/Vol] [facility] ([place]) ([id number]) Comment: Performed By: #### CBC, ADIF F, ANEU, LIP, CMP, GFR #### [address] [address] MCH (RBC) [Entitic mass] 29.2 27.0-31.2 pg Normal 03-09 [facility] ([place]) (0000 0) Comment: Performed By: #### CBC, ADIF F, ANEU, LIP, CMP, GFR #### [address] [address] MCHC (RBC) [Mass/Vol] 34.0 33.0-37.0 G/dL Normal 03-09-20 20 [facility] ([place]) (0000 0) Comment: Performed By: #### CBC, ADIF F, ANEU, LIP, CMP, GFR #### [address] [address] MCV (RBC) [Entitic vol] 85.9 80.0-94.0 fL Normal 2019 [facility] ([place]) (0000 0) Comment: Performed By: #### CBC, ADIF F, ANEU, LIP, CMP, GFR #### [address] [address] Platelet mean volume (Bld) 6.6 7.4-10.4 fL Low [facility] [Entitic vol] ([place]) ( [address]) Comment: Performed By: #### CBC, ADIF F, ANEU, LIP, CMP, GFR #### [address] [address] Platelets (Bld) [#/Vol] 368 130-400 10 3/mcL Normal 2019 [facility] ([place]) ([id number]) Comment: Performed By: #### CBC, ADIF F, ANEU, LIP, CMP, GFR #### [address] [address] RBC (Bld) [#/Vol] 4.48 4.20-5.40 10 6/mcL Normal 03-09-2020 [facility] ([place]) (0000 0) Comment: Performed By: #### CBC, ADIF F, ANEU, LIP, CMP, GFR #### [address] [address] WBC (Bld) [#/Vol] 7.50 4.60-10.80 10 3/mcL Normal 03-09-2020 [facility] ([place]) ([id number]) Comment: Performed By: #### CBC, ADIF F, ANEU, LIP, CMP, GFR #### [address] [address] .urinalysis microscopic (ao) on 2020-03-09 RBC (U) [#/Vol] 0-5 None Seen Abnormal 03-09-2020 [facility] ([place]) ([id number]) Comment: Performed By: #### UA, PREGU , UAMICAO #### [address] [address] UA Bacteria 1+ /hpf Abnormal 03-09-2020 [facility] ([place]) ([id number]) Comment: Performed By: #### UA, PREGU , UAMICAO #### [address] [address] UA Squam Epithelial 5-10 None Seen Abnormal 03-09-2020 [facility] ([place]) (0000 0) Comment: Performed By: #### UA, PREGU , UAMICAO #### [address] [address] UA WBC 5-10 None Seen Abnormal 03-09-2020 [facility] ([place]) ([id number]) Comment: Performed By: #### UA, PREGU , UAMICAO #### [address] [address] .neuabs on Neutrophils (Bld) 5.80 2.85-6.16 10 3/mcL Normal 03-09-2020 [facility] [#/Vol] [facility] ([place]) (14515) Comment: Performed By: #### CBC, ADIF F, ANEU, LIP, CMP, GFR #### [address] [address] .gfr on 2020-03-09 GFR 117 ml/min/1.73sqm Normal 05-2 -2019 [facility] ([place]) (0000 0) Comment: Result Comment: GFR Population mean for Afri can Kuwaiti, Non- Americans Ages 20-29 = 116 mL/min/1.73 sq.m. Ages 30-39 = 107 mL/min/1.73 sq.m. Ages 40-49 = 99 mL/min/1.73 sq.m. Ages 50-59 = 93 mL/min/1.73 sq.m. Ages 60-69 = 85 mL/min/1.73 sq.m. Ages 70+ = 75 mL/min/1.73 sq .m. Chronic Kidney Disease: Less than 60 mL/min/1.73 square meters End Stage Renal Disease: Les s than 15 mL/min/1.73 square meters Performed By: #### CBC, ADIF F, ANEU, LIP, CMP, GFR #### [address] [address] GFR Non- 96 ml/min/1.73sqm Normal 03-09-2020 [facility] ([place]) ([id number]) Comment: Result Comment: GFR Population mean for Afri can Kuwaiti, Non- Americans Ages 20-29 = 116 mL/min/1.73 sq.m. Ages 30-39 = 107 mL/min/1.73 sq.m. Ages 40-49 = 99 mL/min/1.73 sq.m. Ages 50-59 = 93 mL/min/1.73 sq.m. Ages 60-69 = 85 mL/min/1.73 sq.m. Ages 70+ = 75 mL/min/1.73 sq .m. Chronic Kidney Disease: Less than 60 mL/min/1.73 square meters End Stage Renal Disease: Les s than 15 mL/min/1.73 square meters Performed By: #### CBC, ADIF F, ANEU, LIP, CMP, GFR #### [address] [address] .auto diff on 03-09 Ammonia (P) [Mass/Vol] 0.60 0.15-1.00 10 3/mcL Normal 03-09- 020 [facility] ([place]) ([id number]) Comment: Performed By: #### CBC, ADIF F, ANEU, LIP, CMP, GFR #### [address] [address] Basophils (Bld) 0.00 0.00-0.19 10 3/mcL Normal 03-09-2020 [facility] [#/Vol] [facility] ([place]) (35479) Comment: Performed By: #### CBC, ADIF F, ANEU, LIP, CMP, GFR #### [address] [address] Basophils/100 WBC (Bld) 0.6 0.0-2.5 % Normal 2019 [facility] ([place]) (0000 0) Comment: Performed By: #### CBC, ADIF F, ANEU, LIP, CMP, GFR #### [address] [address] Eosinophils (Bld) 0.00 0.00-0.40 10 3/mcL Normal 03-09-2020 [facility] [#/Vol] [facility] ([place]) (95691) Comment: Performed By: #### CBC, ADIF F, ANEU, LIP, CMP, GFR #### [address] [address] Eosinophils/100 WBC (Bld) 0.5 0.0-7.0 % Normal 02-13 [facility] ([place]) (0000 0) Comment: Performed By: #### CBC, ADIF F, ANEU, LIP, CMP, GFR #### [address] [address] Lymphocytes (Bld) 1.00 0.77-3.85 10 3/mcL Normal 03-09-2020 [facility] [#/Vol] [facility] ([place]) ([id number]) Comment: Performed By: #### CBC, ADIF F, ANEU, LIP, CMP, GFR #### [address] [address] Lymphocytes/100 WBC (Bld) 13.5 10.0-50.0 % Normal 02-13 [facility] ([place]) (25209) Comment: Performed By: #### CBC, ADIF F, ANEU, LIP, CMP, GFR #### [address] [address] Monocytes/100 WBC (Bld) 8.1 1.7-13.0 % Normal 2019 [facility] ([place]) (0000 0) Comment: Performed By: #### CBC, ADIF F, ANEU, LIP, CMP, GFR #### [address] [address] Neutrophils/100 WBC (Bld) 77.3 37.0-80.0 % Normal 02-13 [facility] ([place]) (45536) Comment: Performed By: #### CBC, ADIF F, ANEU, LIP, CMP, GFR #### [address] [address] progress on 2018-07 Protein HNO ID: [id number]: Sander Malik 08-09-2018 [facility] WiswellService: (none)Author Type: Clinic PhysicianType: Progress NotesFiled: [place] 08/09/2018 1:00 PMNote Text:Danna Tuckre ([id number]) Abdoulaye is a 37 year old female who presents for follow up of AUBand pelvic pain.HPI:Has been seeing urology for IC. Had bladder biopsy performed. Has beengetting bladder instillations. No significant improvement in pelvic painper her report.Daily bleeding since April 2018. Occasionally heavy. Currently justspotting.Hx AUB: TSH, prolactin ordered, pt did not have drawn. Pelvic US withmultiple intramural fibroids, largest 3 cm in size, do not appear to besubmucosal. EMB benign.Hx pelvic pain: Pelvic US with right ovarian simple cyst measuring 3.4 cmin size (smaller than previously documented), and a simple appearing cyston the left measuring 2.5 cm. 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 Main Topics Smoking status: Current Every Day Smoker Packs/day: 0.00 Years: 0.00 Smokeless tobacco: Never Used Alcohol use: No Drug use: No Sexual activity: Yes Partners with: Male control/protection: Tubal LigationCurrent Outpatient Prescriptions:mirabegron (MYRBETRIQ) 50 mg Tb24 Take 50 mg by mouth once daily.oxyCODONE-acetaminophen (PERCOCET) 5-325 mg tabletmethen-sod phos-meth blue-hyos (UROGESIC-BLUE) 81.6-40.8-0.12 mg tab Takeby mouth.lansoprazole (PREVACID ORAL) Take by mouth once daily.lisdexamfetamine (VYVANSE) 40 mg capsule Take 40 mg by mouth once daily.HYDROcodone-acetaminophen (NORCO) 5-325 mg per tablettraMADol (ULTRAM) 50 mg tablet Take 50 mg by mouth every 6 hours asneeded.metroNIDAZOLE (FLAGYL) 500 mg tablet Take 500 mg by mouth every 12 hoursas needed.doxycycline hyclate (VIBRAMYCIN) 100 mg capsule Take 100 mg by mouth twicedaily.HYDROcodone-acetaminophen (NORCO) 5-325 mg per tablet Take 1 tablet bymouth every 6 hours as needed. (Patient not taking: Reported on 06/25/2018)fluconazole (DIFLUCAN) 150 mg tablet Take one tablet today and one in 3days. Repeat PRN (Patient not taking: Reported on 06/14/2018)clotrimazole-betamethasone (LOTRISONE) cream Apply 1 application toaffected area twice daily. (Patient not taking: Reported on 06/14/2018)No current facility-administered medications for this visit.Allergies As of Date: 08/09/2018(No Known Allergies)Fully Assessed 08/09/2018REVIEW OF SYSTEMSAbdomen: No nausea, vomiting, diarrhea, or constipation.Bladder: +Bladder pain.Finishing Supervisor: +Spotting.Expanded ROS: N/AAllergies and current medication updated:YesEXAM: BP 170/96 Wt 185 lb (83.9kg) LMP 05/13/2018GENERAL: pleasant, female in no apparent distressHEENT: Normocephalic and atraumaticNECK: full range of motionDERMATOLOGY: Normal and without lesionsCHEST: Normal inspiratory effortPELVIC: Pt declined exam due to discomfort after bladder biopsyBIMANUAL: Pt declined exam due to discomfort after bladder biopsyNEURO: alert and oriented x3,exam grossly non-focalEXTREMITIES: normalASSESSMENT AND PLAN:Encounter Diagnosis ICD-10-CM1. Pelvic pain in female R10.2 PELVIC US WHI US FEMALE PELVIS TRANSVAG2. Abnormal uterine bleeding (AUB) N93.9Pelvic Pain: Seeing urology for newly diagnosed IC. Given she reports noimprovement in her pain with IC treatments, will get follow up pelvic USto assess ovarian cysts.AUB: Workup as noted above. Pt states she will get TSH and prolactindrawn. Recent benign biopsy. Not candidate for LENARD's given smoking historyand hypertension at her visits. Discussed Depo, Nexplanon, Mirena. Patientdesires Mirena.To follow up with PCP for elevated blood pressureTo follow up for Mirena placement after pelvic USSaDO trace Brooke on 2018-08-09 CNOV Office Visit Normal 08-09-2018 Clestephanie and (KATHERINE) ------DNANA RUIZ ([id number]) 1980 FDat e Time Provider [id number]/26/18 9:45 AM SANDER CHAIREZ During your [place] visit today, we recorded the following information about you: Blood pressure Weight Last Period (76770) 170/96 83.9 kg 05/13/18ced Chairez MD 08/09/2018 1:00 PM Reynaldo Tucker Abdoulaye is a 37 year old female who presents for foll ow up of AUB andpelvic pain.HPI:Has been seeing urology for IC. Had bladder biopsy performed. Mandel s been gettingbladder instillations. No significant improvement in pelvic pain per herreport.Daily ble eding since April 2018. Occasionally heavy. Currently just spotting.Hx AUB: TSH, prolactin ordered, pt did not have drawn. Pelvic US with multipleintramural fibroids, largest 3 cm in size, do not appear to be submucosal. EMBbenign.Hx pelvic pain: Pelvic US with right ovarian simple cyst measurin g 3.4 cm insize (smaller than previously documented), and a simple appearing cyst on theleft me asuring 2.5 cm. 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 Histor y Main Topics Smoking status: Current Every Day Smoker Packs/day: 0.00 Years: 0.00 Smokeless tobacc o: Never Used Alcohol use: No Drug use: No Sexual activity: Yes Partners with: Male control/pro tection: Tubal LigationCurrent Outpatient Prescriptions:mirabegron (MYRBETRIQ) 50 mg Tb24 Take 50 mg by mouth once daily.oxyCODONE-acetaminophen (PERCOCET) 5-325 mg tabletmethen-sod phos-meth b lue-hyos (UROGESIC-BLUE) 81.6-40.8-0.12 mg tab Take bymouth.lansoprazole (PREVACID ORAL) Take by mout h once daily.lisdexamfetamine (VYVANSE) 40 mg capsule Take 40 mg by mouth once daily.HYDROcodone-aceta minophen (NORCO) 5-325 mg per tablettraMADol (ULTRAM) 50 mg tablet Take 50 mg by mouth every 6 hours as needed.metroNIDAZOLE (FLAGYL) 500 mg tablet Take 500 mg by mouth every 12 hours asneeded.doxy cycline hyclate (VIBRAMYCIN) 100 mg capsule Take 100 mg by mouth twicedaily.HYDROcodone-aceta minophen (NORCO) 5-325 mg per tablet Take 1 tablet by mouthevery 6 hours as needed. (Patient not marshall ng: Reported on 06/25/2018)fluconazole (DIFLUCAN) 150 mg tablet Take one tablet today and one in 3 days.Repeat PRN (Patient not heather g: Reported on 06/14/2018)clotrimazole-betam ethasone (LOTRISONE) cream Apply 1 application to affectedarea twice daily. (Patient not taking: Reported on 06/14/2018)No current facility- administered medications for this visit.Allergies As of D ate: 08/09/2018(No Known Allergies)Fully Assessed 08/09/2018REVIEW OF SYSTEMSAbdomen: No nausea, v omiting, diarrhea, or constipation.Bladder: +Bladder pain.Finishing Supervisor: +Spotting.Expanded ROS: N/AA llergies and current medication updated:YesEXAM: BP 170/96 Wt 185 lb (83.9kg) LMP 05/13/2018GEN ERAL: pleasant, female in no apparent distressHEENT: Normocephalic and atraumatic NECK: full range of motionDERMATOLOGY: Normal and without lesionsCHEST: Normal inspiratory effortPEL DANYA: Pt declined exam due to discomfort after bladder biopsyBIMANUAL: Pt declined exam due to discomf ort after bladder biopsyNEURO: alert and oriented x3,exam grossly non-focalEXTREMITIES: normal ASSESSMENT AND PLAN:Encounter Diagnosis ICD-10-CM1. Pelvic pain in female R10.2 PELVIC US I US FEMAL E PELVIS TRANSVAG2. Abnormal uterine bleeding (AUB) N93.9Pelvic Pain: Seeing urology for newly saira gnosed IC. Given she reports noimprovement in her pain with IC treatments, will get follow up pelvic US toassess ovarian cysts.AUB: Workup as noted above. Pt states she will get TSH and prolact in drawn.Recent benign biopsy. Not candidate for LENARD's given smoking history andhypertension at h er visits. Discussed Depo, Nexplanon, Mirena. Patient desiresMirena.To follow up with PCP for eleva swapna blood pressureTo follow up for Mirena placement after pelvic USSara Pallavi Chairez Provide r: SELF [200]Allergies As of Date: 08/09/2018(No Known Allergies)Date Reviewed: 08/09/2018Reviewed by: Kati Stark LPN - Fully AssessedReason for Visit: Follow Up [171] Cmt: emb- discuss gett ing menses to stopReason For Visit History RecordedPrimary Visit Diagnosis:Pelvic pain in fem lacho [R10.2] Other Visit Diagnosis:Abnormal uterine bleeding (AUB) [N93.9]Order(s):PELVIC US WH I [[id number]] Order #: [id number]: 1 FUTURE PELVIC US WHI [[id number]] Order #: [id number]: 1 FEMALE PELVIS TRANSVAG [[id number]] Order #: [id number] FUTUREPrescriptions as of 08/09/2018 Sig: MIRABE GRON ER 50 MG TABLET,EX* Take 50 mg by mouth once ajit* OXYCODONE-ACETAMINOPHEN 5 MG -* METHENAMINE 81.6 MG-SOD PHOS * Take by mouth. PREVACID ORAL Take by mouth once daily. LISDEXAMFE TAMINE 40 MG CAPSULE Take 40 mg by mouth once ajit* HYDROCODONE 5 MG-ACETAMINOPHE* TRAMADOL 50 MG TABLET Take 50 mg by mouth every 6 h* METRONIDAZOLE 500 MG TABLET Take 500 mg by mouth every 1 2* DOXYCYCLINE HYCLATE 100 MG CA* Take 100 mg by mouth twice da* HYDROCODONE 5 MG-ACETAMINOPH E* Take 1 tablet by mouth every * Patient not taking: Reported on 06/25/2018 FLUCONAZOLE 150 MG TABLET Take one tablet today and one* Patient not taking: Reported on 06/14/2018 CLOTRIMAZOLE-BETAM ETHASONE 1 * Apply 1 application to affect* Patient not taking: Reported on 06/14/2018Problem List As Of Date: 08/09/2018(None)Level of Service: EST PATIENT VISIT LEVEL 3 [[id number]]Disposition: Return i n about 1 week (around 08/16/2018) for Mirena placement with SW.Follow-up and Disposition History Jose rdedEncounter Number: [id number] Status:Closed by SANDER CHAIREZ MD on 08/09/18 progress on 2018-06 Protein HNO ID: [id number]: Sander Malik 07-03-2018 [facility] Al: (none)Author Type: Clinic PhysicianType: Progress NotesFiled: [place] 07/03/2018 5:18 PMNote Text:Danna Tucker ([id number]) Abdoulaye is a 37 year old female who presents for follow up of AUBand pelvic and bladder pain.HPI:LMP 06/30/18. Very light bleeding currently.She states her pelvic pain is getting worse. She notes pain with a fullbladder. Has increased urgency to urinate. She says she is having to usethe restroom frequently, and this in addition to the pain when her bladderis full is very bothersome to her. She states she has been limiting fluidintake to < 2L per day. 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 History Main Topics Smoking status: Current Every Day Smoker Packs/day: 0.00 Years: 0.00 Smokeless tobacco: Never Used Alcohol use: No Drug use: No Sexual activity: Yes Partners with: Male control/protection: Tubal LigationCurrent Outpatient Prescriptions:lisdexamfetamine (VYVANSE) 40 mg capsule Take 40 mg by mouth once daily.traMADol (ULTRAM) 50 mg tablet Take 50 mg by mouth every 6 hours asneeded.HYDROcodone-acetaminophen (NORCO) 5-325 mg per tabletmetroNIDAZOLE (FLAGYL) 500 mg tablet Take 500 mg by mouth every 12 hoursas needed.doxycycline hyclate (VIBRAMYCIN) 100 mg capsule Take 100 mg by mouth twicedaily.HYDROcodone-acetaminophen (NORCO) 5-325 mg per tablet Take 1 tablet bymouth every 6 hours as needed. (Patient not taking: Reported on 06/25/2018)fluconazole (DIFLUCAN) 150 mg tablet Take one tablet today and one in 3days. Repeat PRN (Patient not taking: Reported on 06/14/2018)clotrimazole-betamethasone (LOTRISONE) cream Apply 1 application toaffected area twice daily. (Patient not taking: Reported on 06/14/2018)No current facility-administered medications for this visit.Allergies As of Date: 07/03/2018(No Known Allergies)Fully Assessed 07/03/2018REVIEW OF SYSTEMSAbdomen: No abdominal pain, nausea, vomiting, diarrhea, or constipation.Bladder: See HPIExpanded ROS: N/AAllergies and current medication updated:YesEXAM: BP 130/86 Wt 183 lb (83.0kg)GENERAL: emotional, female in no apparent distressHEENT: Normocephalic and atraumaticNECK: Supple, full range of motion, no adenopathy and thyroid normalDERMATOLOGY: Normal and without lesionsCHEST: Normal inspiratory effortNEURO: alert and oriented x3,exam grossly non-focalEXTREMITIES: normalASSESSMENT AND PLAN:Encounter Diagnosis ICD-10-CM1. Abnormal uterine bleeding (AUB) N93.9 TSH BLD PROLACTIN BLD2. Bladder pain R39.89AUB: Reviewed results of endometrial biopsy- No evidence of hyperplasia ormalignancy. Discussed getting TSH and prolactin drawn. Had pelvic US on06/14/18. Hgb 13.1 on 06/14/18. Reviewed option for control toregulate her menses. She does not want to start control at thistime, as the pain she is experiencing is her priority. She will call whenshe is ready to further discuss/start control for AUB.Pelvic and bladder pain, stress incontinence: Discussed possible IC? butthat I cannot make that formal diagnosis. UA with large blood and leuksbut pt was having VB at that time. Urine cx negative. Discussed possiblytrying Amitriptyline, but that it is most likely effective at higher dosesand I would recommend her seeing urology rather than escalating it to aneffective dose. Also discussed Elmion, but contraindicated given pt's hxof hemophilia. Encouraged her to continue to keep track of any triggers,and avoid those triggers. Discussed again limiting fluid intake to < 2L aday, and doing timed voids during the day. Patient will make anappointment with urology. Referral was already placed.Patient to call when she desires to start control.Sander Chairez DO cnov on 2018-07-03 CNOV Office Visit Normal 07-03-2018 [facility] and ([facility]OO[facility]) ------DANNA RUIZ ([id number]) [address] [facility] e Time Provider Department07/03/18 4:00 PM SANDER CHAIREZ During your C[facility] and visit today, we recorded the following information about you: Blood pressure Weight 130/86 83 kgSara (000 00) MD Contreras 07/03/2018 5:18 P M Reynaldo Pittmans is a 37 year old female who presents for follow up of AUB andpelvic and blad angella pain.HPI:LMP 06/30/18. Very light bleeding currently.She states her pelvic pain is getting worse . She notes pain with a fullbladder. Has increased urgency to urinate. She says she is having to us e therestroom frequently, and this in addition to the pain when her bladder is fullis very bothe rsome to her. She states she has been limiting fluid intake to <2L per day. 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 History Main Topics Smoking status: Curre nt Every Day Smoker Packs/day: 0.00 Years: 0.00 Smokeless tobacco: Never Used Alcohol use: No Drug us e: No Sexual activity: Yes Partners with: Male control/protection: Tubal LigationCurrent Outpat ient Prescriptions:lisdexamfetamine (VYVANSE) 40 mg capsule Take 40 mg by mouth once daily.traMADol (U LTRAM) 50 mg tablet Take 50 mg by mouth every 6 hours as needed.HYDROcodone-acetamino phen (NORCO) 5-325 mg per tabletmetroNIDAZOLE (FLAGYL) 500 mg tablet Take 500 mg by mouth every 12 kayli rs asneeded.doxycycline hyclate (VIBRAMYCIN) 100 mg capsule Take 100 mg by mouth twicedaily.HYDROcod one-acetaminophen (NORCO) 5-325 mg per tablet Take 1 tablet by mouthevery 6 hours as needed. (Patient not taking: Reported on 06/25/2018)fluconazole (DIFLUCAN) 150 mg tablet Take one tablet today and on e in 3 days.Repeat PRN (Patient not taking: Reported on 06/14/2018)clotrimazole-betam ethasone (LOTRISONE) cream Apply 1 application to affectedarea twice daily. (Patient not taking: Reported on 06/14/2018)No current facility- administered medications for this visit.Allergies As of D ate: 07/03/2018(No Known Allergies)Fully Assessed 07/03/2018REVIEW OF SYSTEMSAbdomen: No abdominal pain, nausea, vomiting, diarrhea, or constipation.Bladder: See HPIExpanded ROS: N/AAllergie s and current medication updated:YesEXAM: BP 130/86 Wt 183 lb (83.0kg)GENERAL: emotional, female in no apparent distressHEENT: Normocephalic and atraumaticNECK: Supple, full range of motion, no adenopathy and thyroid normalDERMATOLOGY: Normal and without lesionsCHEST: Normal inspiratory effortNEURO: alert and oriented x3,exam grossly non-focalEXTREMITIES: normal ASSESSMENT AND PLAN:Encounter Diagnosis ICD-10-CM1. Abnormal uterine bleeding (AUB) N93.9 TSH BLD PROLACTIN BLD2. Bladder pain R39.89AUB: Reviewed results of endometrial biopsy- No evidence of hyper plasia ormalignancy. Discussed getting TSH and prolactin drawn. Had pelvic US on06/14/18. Hgb 13. 1 on 06/14/18. Reviewed option for control to regulate hermenses. She does not want to start b irth control at this time, as the pain sheis experiencing is her priority. She will call when she is ready to furtherdiscuss/start control for AUB.Pelvic and bladder pain, stress inconti nence: Discussed possible IC? but that Icannot make that formal diagnosis. UA with large blo od and leuks but pt washaving VB at that time. Urine cx negative. Discussed possibly tryingAmi triptyline, but that it is most likely effective at higher doses and I wouldrecommend her seeing ur ology rather than escalating it to an effective dose.Also discussed Elmion, but contraindicated given pt's hx of hemophilia.Encouraged her to continue to keep track of any triggers, and avoid thos etriggers. Discussed again limiting fluid intake to < 2L a day, and doing timedvoids during the day. P atient will make an appointment with urology. Referralwas already placed.Patient to call when she desires to start control.Pallavi Schroeder Provider: SELF [200]Allergies As of Da te: 07/03/2018(No Known Allergies)Date Reviewed: 07/03/2018Reviewed by: Ingris Teran for Visit: Follow Up [171] Cmt: from EMBPrimary Visit Diagnosis:Abnormal uterine b leeding (AUB) [N93.9] Other Visit Diagnosis:Bladder pain [R39.89]Order(s):TSH BLD [SQ TSH] Order #: [id number] FUTURE PROLACTIN BLD [SQPROL] Order #: [id number] FUTUREPrescriptio ns as of 07/03/2018 Sig: LISDEXAMFETAMINE 40 MG CAPSULE Take 40 mg by mouth once ajit* TRAMADOL 50 MG TABLET Take 50 mg by mouth every 6 h* HYDROCODONE 5 MG-ACETAMINOPHE* METRONIDAZOLE 500 MG TABLET Take 500 mg by mouth every 12* DOXYCYCLINE HYCLATE 100 MG CA* Take 100 mg by mouth twice da* HYDROCODO NE 5 MG-ACETAMINOPHE* Take 1 tablet by mouth every * Patient not taking: Reported on 06/25/2018 FLUCON AZOLE 150 MG TABLET Take one tablet today and one* Patient not taking: Reported on 06/14/2018 CLOTRI MAZOLE-BETAMETHASONE 1 * Apply 1 application to affect* Patient not taking: Reported on 8Problem List As Of Date: 07/03/2018(None)Level of Service: EST PATIENT VISIT LEVEL 3 [[id number]]Follow- up and Disposition History RecordedEncounter Number: [id number] Status:Closed by SANDER CHAIREZ MD on 07/03/18 progress on 2018-06 Protein HNO ID: [id number]: Sander Malik 06-25-2018 [facility] va ChairezService: (none)Author Type: Clinic PhysicianType: Progress NotesFiled: [place] 06/25/2018 5:29 PMNote Text:Danna Tucker ([id number]) Abdoulaye is a 37 year old female who presents for problem visitfor bladder pain, stress incontinence, AUB.HPI:AUB: Regular menses prior to her LMP 05/13/18. +Heavy flow. She then hadconstant, daily bleeding after that period in April and the bleeding justnow stopped 4 days ago. She said she was constantly having chicken-fattype discharge with the bleeding. Now spotting that is red in color.Her fevers, chills, and generalized abdominal pain have improved.+New urinary incontinence that started at the end of May. Leaking withincreased intra-abd pressure (coughing, sneezing, running, etc). Shedenies urge incontinence. Drinking 3-4 cups of coffee throughout themorning. At times will also drink soda. She states she mostly water. Shesays she does not think she is drinking large amounts of liquids as sheonly drinks when she feels thirsty. No pain with urinary strem. Nohematuria. She notes discomfort immediately after she urinates, describesa burning sensation after urination. Still has feeling that she has tourinate after urinating, but she feels she is emptying her bladder. Painis worse with full bladder. Has a burning pain/sensation with fullbladder. Unsure if any foods or drinks make this bladder pain worse. 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 History Main Topics Smoking status: Current Every Day Smoker Packs/day: 0.00 Years: 0.00 Smokeless tobacco: Never Used Alcohol use: No Drug use: No Sexual activity: Yes Partners with: Male control/protection: Tubal LigationCurrent Outpatient Prescriptions:lisdexamfetamine (VYVANSE) 40 mg capsule Take 40 mg by mouth once daily.traMADol (ULTRAM) 50 mg tablet Take 50 mg by mouth every 6 hours asneeded.HYDROcodone-acetaminophen (NORCO) 5-325 mg per tabletmetroNIDAZOLE (FLAGYL) 500 mg tablet Take 500 mg by mouth every 12 hoursas needed.doxycycline hyclate (VIBRAMYCIN) 100 mg capsule Take 100 mg by mouth twicedaily.HYDROcodone-acetaminophen (NORCO) 5-325 mg per tablet Take 1 tablet bymouth every 6 hours as needed. (Patient not taking: Reported on 06/25/2018)fluconazole (DIFLUCAN) 150 mg tablet Take one tablet today and one in 3days. Repeat PRN (Patient not taking: Reported on 06/14/2018)clotrimazole-betamethasone (LOTRISONE) cream Apply 1 application toaffected area twice daily. (Patient not taking: Reported on 06/14/2018)No current facility-administered medications for this visit.Allergies As of Date: 06/25/2018(No Known Allergies)Fully Assessed 06/25/2018REVIEW OF SYSTEMSAbdomen: No abdominal pain, nausea, vomiting, diarrhea, or constipation.Bladder: See HPI.Expanded ROS: Denies fevers or chilldAllergies and current medication updated:YesEXAM: BP 140/102 Wt 183 lb 6.4 oz (83.2kg) LMP 05/13/2018GENERAL: pleasant, female in no apparent distressHEENT: Normocephalic and atraumaticNECK: full range of motionDERMATOLOGY: Normal and without lesionsCHEST: Normal inspiratory effortABDOMEN: soft, non-tender and no massesPELVIC: external genitalia normal, normal Bartholin's glands, urethra,[place]'s glands, no vulvar lesions, no cervical lesions, good vaginalsupport, physiologic discharge present, normal appearing perineal body andperianal regionNEURO: alert and oriented x3,exam grossly non-focalEXTREMITIES: normalASSESSMENT AND PLAN:Encounter Diagnosis ICD-10-CM1. Bladder pain R39.89 CONSULT TO UROLOGY2. Stress incontinence of urine N39.3 CONSULT TO UROLOGY3. Abnormal uterine bleeding (AUB) N93.9 ENDOMETRIAL BIOPSY SURGICAL PATHOLOGYAUB: Regular menses prior to April with hx of menorrhagia. Daily bleedingfrom April to beginning of June. Abnormal discharge described bypatient as chicken-fat present also. EMB performed today afterdiscussion of risks, benefits, alternatives. Briefly discussed birthcontrol to help regulate her cycles. Patient is possibly interested inDepo. Will have patient follow up in 1 week to discuss EMB results andbirth control. Recent pelvic US with multiple fibroids noted, largestbeing 3 cm in size, no comment on the fibroids being submucosal, do notappear to be submucosal on review of imaging.New urinary incontinence and bladder pain: UA showed large blood, butpatient was having vaginal bleeding. Urine cx negative for UTI. Referralplaced to urology for possible IC? and new stress incontinence.PROCEDURE NOTEChersaravanan Ruiz is a 37 year old female who presents today for anendometrial biopsy for abnormal uterine bleeding. test: n/a, s/p tubalUNIVERSAL PROTOCOL / SAFETY CHECKLISTProcedure to be performed: endometrial biopsySign in Communication: CompletedTime Out: Team Confirms the Correct Patient, Correct Procedure, CorrectSite and Site Marking, Correct Position (if applicable), Prep and Dry Time(if applicable).Affirmation of Time Out: YESSign Out Discussion: CompletedSara Chairez DOPROCEDURE:EXTERNAL GENITALIA: Normal in appearance without lesionsVAGINA: Normal in appearance without lesionsBIOPSY: Speculum placed into the vagina with excellent visualization ofthe cervix. Cervix cleaned with betadine. Anterior lip of cervix graspedwith single toothed tenaculum. Uterus sounded to 8 cm. Pipelle insertedinto the uterus without difficulty and endometrial biopsy obtained.Specimen labeled and sent to pathology. Hemostasis achieved.Procedure Summary: Patient tolerated procedure well.ASSESSMENT: abnormal uterine bleedingPLAN:Follow up in 1 week to discuss results.Sander Chairez DO cnov on 2018-06-25 CNOV Office Visit Normal 06-25-2018 [facility] and ([facility]OO[facility]) ------[facility] RUIZ ([id number]) 1980 [facility] Department06/25/18 3:45 PM SANDER CHAIREZ During your Clevel and visit today, we recorded the following information about you: Blood pressure Weight Last Period () 140/102 83.2 kg 05/13/18ced Chairez MD 06/25/2018 5:29 PM Reynaldo Tucker Abdoulaye is a 37 year old female who presents for prob yvonne visit forbladder pain, stress incontinence, AUB.HPI:AUB: Regular menses prior to her LMP 05/13. +Heavy flow. She then hadconstant, daily bleeding after that period in April and the bleeding jus t nowstopped 4 days ago. She said she was constantly having chicken-fat typedischarge with the bleed ing. Now spotting that is red in color.Her fevers, chills, and generalized abdominal pain h ave improved.+New urinary incontinence that started at the end of May. Leaking withincreased intra- abd pressure (coughing, sneezing, running, etc). She deniesurge incontinence. Drinking 3-4 c ups of coffee throughout the morning. At timeswill also drink soda. She states she mostly water. She says she does not thinkshe is drinking large amounts of liquids as she only drinks when she feelsth irsty. No pain with urinary strem. No hematuria. She notes discomfortimmediately after she urinates, describes a burning sensation afterurination. Still has feeling that she has to urin ate after urinating, but shefeels she is emptying her bladder. Pain is worse with full bladder. Has aburning pain/sensation with full bladder. Unsure if any foods or drinks makethis bladder pain worse. 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 Histor y Main Topics Smoking status: Current Every Day Smoker Packs/day: 0.00 Years: 0.00 Smokeless tobacc o: Never Used Alcohol use: No Drug use: No Sexual activity: Yes Partners with: Male control/pro tection: Tubal LigationCurrent Outpatient Prescriptions:lisdexamfetamine (VYVANSE) 40 mg capsule Take 40 mg by mouth once daily.traMADol (ULTRAM) 50 mg tablet Take 50 mg by mouth every 6 hours as neede d.HYDROcodone-acetaminophen (NORCO) 5-325 mg per tabletmetroNIDAZOLE (FLAGYL) 500 mg tablet Take 500 mg by mouth every 12 hours asneeded.doxycycline hyclate (VIBRAMYCIN) 100 mg capsule Take 100 mg b y mouth twicedaily.HYDROcodone-acetaminophen (NORCO) 5-325 mg per tablet Take 1 tablet by mouthevery 6 hours as needed. (Patient not taking: Reported on 06/25/2018)fluconazole (DIFLUCAN) 150 mg tablet Broderick e one tablet today and one in 3 days.Repeat PRN (Patient not taking: Reported on 06/14/2018)clotri mazole-betamethasone (LOTRISONE) cream Apply 1 application to affectedarea twice daily. (P atient not taking: Reported on 06/14/2018)No current facility-administered medications for this visit.A llergies As of Date: 06/25/2018(No Known Allergies)Fully Assessed 06/25/2018REVIEW OF SYSTEMSA bdomen: No abdominal pain, nausea, vomiting, diarrhea, or constipation.Bladder: See HP I.Expanded ROS: Denies fevers or chilldAllergies and current medication updated:YesEXAM: BP 140/102 Wt 183 lb 6.4 oz (83.2kg) LMP 05/13/2018GENERAL: pleasant, female in no apparent distre ssHEENT: Normocephalic and atraumaticNECK: full range of motionDERMATOLOGY: Normal an d without lesionsCHEST: Normal inspiratory effortABDOMEN: soft, non-tender and no massesPELV IC: external genitalia normal, normal Bartholin's glands, urethra, [place]'sglands, no vulvar les ions, no cervical lesions, good vaginal support,physiologic discharge present, normal appearing pe rineal body and perianalregionNEURO: alert and oriented x3,exam grossly non-focalEXTREMITIES: normal ASSESSMENT AND PLAN:Encounter Diagnosis ICD-10-CM1. Bladder pain R39.89 CONSULT TO UROLOGY2. Stress incontinence of urine N39.3 CONSULT TO UROLOGY3. Abnormal uterine bleeding (AUB) N93.9 ENDOMET RIAL BIOPSY SURGICAL PATHOLOGYAUB: Regular menses prior to April with hx of menorrhagia. Daily bleedi ng fromJu to beginning of June. Abnormal discharge described by patient aschicken-fat pres ent also. EMB performed today after discussion of risks,benefits, alternatives. Briefly discus sed control to help regulate hercycles. Patient is possibly interested in Depo. Will hav e patient follow up in1 week to discuss EMB results and control. Recent pelvic US with multip lefibroids noted, largest being 3 cm in size, no comment on the fibroids beingsubmucosal, do not appe ar to be submucosal on review of imaging.New urinary incontinence and bladder pain: UA showed larg e blood, but patientwas having vaginal bleeding. Urine cx negative for UTI. Referral placed tourolo gy for possible IC? and new stress incontinence.PROCEDURE NOTEChersaravanan Ruiz is a 37 year old femal e who presents today for an endometrialbiopsy for abnormal uterine bleeding. test: n/a , s/p tubalUNIVERSAL PROTOCOL / SAFETY CHECKLISTProcedure to be performed: endometrial biops ySign in Communication: CompletedTime Out: Team Confirms the Correct Patient, Correct Procedure, Correct Siteand Site Marking, Correct Position (if applicable), Prep and Dry Time (ifapplicable).Affi rmation of Time Out: YESSign Out Discussion: CompletedGILBERT SchroederROCEDURE:EXTERNAL GENITAL IA: Normal in appearance without lesionsVAGINA: Normal in appearance without lesionsBIOPSY: Specu lum placed into the vagina with excellent visualization of thecervix. Cervix cleaned with betadine . Anterior lip of cervix grasped withsingle toothed tenaculum. Uterus sounded to 8 cm. Pipelle ins erted into theuterus without difficulty and endometrial biopsy obtained. Specimen labeled andsent to pathology. Hemostasis achieved.Procedure Summary: Patient tolerated procedure well.ASSESSMENT: a bnormal uterine bleedingPLAN:Follow up in 1 week to discuss results.Gudelia Schroeder MD 06/25/2018 4:39 PM SignedYOUR RECOVERYAfter your biopsy you may have:? Vaginal bleeding (less than a normal menstrual period)? Mild crampingDo NOT put anything in the vagina for 1 week after your endometrial biopsy.This includes:? tampons? douches? and refraining from having sexual intercourseIf you have any discomfort, you may take an over the counter pain medication(motrin, advil, ib uprofen, tylenol, etc). If this does not relieve yourdiscomfort, contact the office.It is okay to wea r a sanitary pad until the discharge and spotting stops.RISKSAlthough problems seldom occur with e ndometrial biopsies, there can be somecomplications. You may feel faint during and shortly after the procedure aswell as have some bleeding after the procedure. There is also a risk ofinfection afte r the procedure. These complications are rare and can be easilytreated.You should con tact you doctor is you have any of the following:? Heavy bleeding (more than your normal period)? Bl eeding with clots? Severe abdominal pain? Fever (more than 100.4F)? Foul smelling vaginal dischargeRE SULTSWe will have the results of your biopsy in 1-2 weeks. If you do not hear theresults of your biop sy after 2 weeks, please contact the office for theresults.If you have any additional questions or concerns please do not hesitate tocontact the office.Referring Provider: SELF [200]Allergies As of Da te: 06/25/2018(No Known Allergies)Date Reviewed: 06/25/2018Reviewed by: Ingris Gay) Mya adamsedReason for Visit: Follow Up [171]Primary Visit Diagnosis:Bladder pain [R39.89] Other Visit Di agnoses:Stress incontinence of urine [N39.3] Abnormal uterine bleeding (AUB) [N93.9]Order(s):CONSUL T TO UROLOGY [9041] Order #: [id number]: 1 ENDOMETRIAL BIOPSY [[id number]] Order #: [id number] 1 SURGICAL PATHOLOGY [9057929] Order #: [id number] as of 06/25/2018 Sig: LISDEXAMFETA MINE 40 MG CAPSULE Take 40 mg by mouth once ajit* TRAMADOL 50 MG TABLET Take 50 mg by mouth every 6 h* HYDROCODONE 5 MG-ACETAMINOPHE* METRONIDAZOLE 500 MG TABLET Take 500 mg by mouth every 12* DOXYCYCLI NE HYCLATE 100 MG CA* Take 100 mg by mouth twice da* HYDROCODONE 5 MG-ACETAMINOPHE* Take 1 tabl et by mouth every * Patient not taking: Reported on 06/25/2018 FLUCONAZOLE 150 MG TABLET Take one table t today and one* Patient not taking: Reported on 06/14/2018 CLOTRIMAZOLE-BETAMETHASONE 1 * Apply 1 application to affect* Patient not taking: Reported on 06/14/2018Problem List As Of Date: 06/25/2018(None) Other instructions from your clinician: YOUR RECOVERY After your biopsy y ou may have: ? Vaginal bleeding (less than a normal menstrual period) ? Mild cramping Do NOT put any thing in the vagina for 1 week after your endometrial biopsy. This includes: ? tampons ? douche s ? and refraining from having sexual intercourse If you have any discomfort, you may take an over the counter pain medication (motrin, advil, ibuprofen, tylenol, etc). If this does not relie ve your discomfort, contact the office. It is okay to wear a sanitary pad until the discharge and spot ting stops. RISKS Although problems seldom occur with endometrial biopsies, there can be some complications. You may feel faint during and shortly after the procedure as well as have some bleedin g after the procedure. There is also a risk of infection after the procedure. These complicatio ns are rare and can be easily treated. You should contact you doctor is you have any of the followin g: ? Heavy bleeding (more than your normal period) ? Bleeding with clots ? Severe abdominal pain ? Fe victoria (more than 100.4F) ? Foul smelling vaginal discharge RESULTS We will have the results of your bio psy in 1-2 weeks. If you do not hear the results of your biopsy after 2 weeks, please contact the of [place] for the results. If you have any additional questions or concerns please do not hesitate to co ntact the office.Level of Service: EST PATIENT VISIT LEVEL 4 [91771]Disposition: Return i n about 1 week (around 07/02/2018).Follow-up and Disposition History RecordedEncounter Number: [id number] Status:Closed by SANDER CHAIREZ MD [facility] 06[facility] Tele[facility] Normal 06-18-2018 [place] ([place]) ------DANNA RUIZ [facility] ([id number]) [address] [facility] e Time Provider Department06/18/18 SANDER CHAIREZ During your visit [place] today, we recorded the follo wing information about you:Sander Chairez MD 06/18/2018 1:48 PM SignedCalled ([id number]) patient about test results, and to see how she is feeling.Reports she is still having vaginal bleeding, and has been bleed ing since April.Off-and-on, mostly spotting. She reports the bleeding is heavier than spottingcurrent ly with tissue-like discharge. No further fevers. +Abd discomfort.Reviewed normal v aginitis cx, GC/CT, and urine cx. Reviewed formal read ofpelvic US: right ovary with 3.4 cm simple cys t, left ovary with 2.5 cmcomplex cyst. Prior US showed a complex 4.6 cm cyst of right ovary.Given pt is still having abnormal bleeding, will have her f/u in the office w/me this week or next. Can you p lease schedule her for a f/u apt? Thanks!Jennie Causey RN 06/18/2018 2:08 PM SignedPatient is sergo eduled for 06/21/18 with for a follow-up Carlos Causey RNAllergies As of Date: 06/18/2018(No Kn own Allergies)Date Reviewed: 06/14/2018Reviewed by: Kati Stark LPN - Fully AssessedReason for V isit: Results [95]Prescriptions as of 06/18/2018 Sig: LISDEXAMFETAMINE 40 MG CAPSULE Take 40 mg by alicia th once ajit* TRAMADOL 50 MG TABLET Take 50 mg by mouth every 6 h* HYDROCODONE 5 MG-ACETAMINOPH E* METRONIDAZOLE 500 MG TABLET Take 500 mg by mouth every 12* DOXYCYCLINE HYCLATE 100 MG CA* Take 100 mg by mouth twice da* HYDROCODONE 5 MG- ACETAMINOPHE* Take 1 tablet by mouth every * FLUCONAZOLE 15 0 MG TABLET Take one tablet today and one* Patient not taking: Reported on 06/14/2018 CLOTRIMAZOLE-BE TAMETHASONE 1 * Apply 1 application to affect* Patient not taking: Reported on 06/14/2018Problem List As Of Date: 06/18/2018(None) Status:Closed by SANDER CHAIREZ MD on 06/18/18 abel cbc and diff on 2018-06-14 Eosinophils/100 WBC Auto 0.4 % Normal 06-14 [facility] (Bld) [place] ([id number]) Erythrocyte distribution 14.2 11.5-15.0 % Normal 06-14 [facility] width Auto Ratio (RBC) [place] ([id number]) Hematocrit Auto Volume 39.6 36.0-46.0 % Normal 018 [facility] Fraction (Bld) [facility] ([id number]) Hemoglobin mass conc (Bld) 13.1 11.5-15.5 g/dL Normal [facility] ([id number]) Lymphocytes/100 WBC Auto 21.3 % Normal 06-14 [facility] (Bld) [place] ([id number]) MCH Auto Entitic mass 29.1 26.0-34.0 pg Normal 06-14-20 18 [facility] (RBC) [place] ([id number]) MCHC Auto mass conc (RBC) 33.1 30.5-36.0 g/dL Normal 05-17 [facility] ([id number]) MCV Auto Entitic volume 88.0 80.0-100.0 fL Normal 06-14 [facility] (RBC) [place] ([id number]) Platelet mean volume Auto 8.6 9.0-12.7 fL Low 05-17 [facility] Entitic volume (Bld) [place] ([id number]) Comment: Result Comment: Test perform ed at: [facility], [address] [place] [address]., [place], [place] [address]. RBC Auto #/vol (Bld) 4.50 3.90-5.20 m/uL Normal 8 [facility] ([id number]) WBC Auto #/vol (Bld) 11.90 3.70-11.00 k/uL High 06-14-20 18 [facility] ([id number]) Abel Abs Baso 0.04 <0.11 k/uL Normal 06-14-2018 [facility] ([id number]) [place] Abs Eos 0.05 <0.46 k/uL Normal 06-14-2018 [facility] ([id number]) [place] Abs Lymp 2.54 1.00-4.00 k/uL Normal 06-14-2018 [facility] ([id number]) Abel Abs Hernando 0.56 <0.87 k/uL Normal 06-14-2018 [facility] ([id number]) [place] Abs Neut 8.71 1.45-7.50 k/uL High 06-14-2018 [facility] (69348) [place] Baso% 0.3 % Normal 06-14-2018 [facility] ([id number]) Abel Hernando% 4.7 % Normal 06-14-2018 [facility] ([id number]) [place] Neut% 73.3 % Normal 06-14-2018 [facility] ([id number]) Abel Platelet Cnt 385 150-400 k/uL Normal 8 [facility] ([id number]) us female pelvis transvag on 2018-06-14 US FEMALE * * *Final Report* * *DATE OF Normal 06-14-2018 [facility] PELVIS TRANSVAG EXAM: Jun 14 2018 2:46PM [facility] - US FEMALE PELVIS TRANSVAG ([id number]) / REASON: Pelvic and perineal pain * * * * Physician Interpretation * * * * EXAMINATION: TRANSVAGINAL AND LIMITED TRANSABDOMINAL PELVIC ULTRASOUNDHISTORY: Pelvic and perineal painTECHNIQUE: Sonography of the pelvis was performed by transvaginal and transabdominal (limited) techniques. Images were obtained and stored in a permanent archive.MQ: [id number]: 06/19/2017FLMP: 05/13/2018RESULT:Uterus size: 10.6 x 6.4 x 4.6 cm -Orientation: Anteverted -Myometrium: There are multiple fibroids the largest 3.0 cm in diameter is in the fundal region -Endometrial echo complex: 1.3 cm -Cervix: There are nabothian cystsRight ovary: 4.2 x 4.1 x 3.6 cmLeft ovary: 2.9 x 2.2 x 1.4 cm . It is complexBilateral ovarian cysts the largest on the right side is 3.4 cm simple cyst. On the left side 2.5 cm complex.Pelvis free fluid: None seenIMPRESSION: .1. Uterine fibroids2. Nabothian cysts3. Complex cystic structure in the left adnexa. If no further evaluation is performed at this time then a follow-up is suggested in 2 months.Beekeeper: PSCB Transcribe Date/Time: Jun 15 2018 8:55ADictated by : Viry SON examination was interpreted and the report reviewed and electronically signed by: JOB JANG DO on Jun 15 2018 4:37PM [id number] urine culture on 01-06-31 Bacteria Sp. Request/Comment: - Critically 2017 [place] identified Cx Specimen received in abnormal Clinic Nom (U) preservativeCulture [place] Result - 50,000 - (0 0000) <100,000 CFU/ml Lactose positive gram negative bacilli --> ABNORMAL ALERT Insignificant colony count. No further workup. --> ABNORMAL ALERT >=100,000 CFU/ml Normal urogenital helen Comment: Performed By: #### URCUL ### #[facility] [address] [place], [place] [id number]- [phone] progress on 2018-05 Protein mass HNO ID: [id number]: Normal 0 06-14-2018 [facility] va [place] ([facility]) Janethervice: Shaggy ([id number]) (none)Author Type: SonographerType: Progress NotesFiled: 06/14/2018 2:47 PMNote Text: Radiology Service Progress NotePATIENT NAME: Danna LinoRN: [id number] OF SERVICE: June 14, 2018TIME: 2:46 PMPATIENT IDENTITY VERIFICATION COMPLETED USING TWO (2) METHODS: Patientconfirmed name verbally and Date of .PATIENT GENDER DATA: Female. status: : NoBreastfeeding status: N/APATIENT RELEVANT IMPLANT DATA REVIEWED: Not ApplicableRADIOLOGY DEPARTMENT: UltrasoundPERIPHERAL IV DATA: Not applicableSIGNED BY: ANURADHA BARR [facility] RVTAugust 2017 2:46 PM Protein mass HNO ID: [id number]: Normal 0 06-14-2018 [facility] conc Sander ChairezService: Shaggy ([id number]) (none)Author Type: PhysicianType: Progress NotesFiled: 06/14/2018 1:11 PMNote Text:Danna Ruiz is a 37 year old female who presents for problem visitfor multiple complaints.HPI:Four days ago she started having lower abdominal burning, as well aspelvic pressure. Incontinence 2 days ago when running up stairs; shereports it was a large amount of urine. Increased frequency withurination. No dysuria or gross hematuria. Had not had incontinence prior.+Bloated and low back pain. Fever of 101.9 two days ago. +N/V. Keeping POdown, but not able to eat full meals. Emesis about 6 times over the last 1month. Constipation and diarrhea x 3 months. Generalized abdominal pain x3 months. Does not feel better after having BM.LMP 05/13/18 - menses started as a complete gush. Saturated throughclothing. Has been bleeding since then, like a light period now and notheavy. Occasionally has gushes of discharge that look like chicken fat.She describes the blood as like yellow blood.She states these symptoms are similar to when she was treated for a TOA.She says at that time she was admitted and treated for diverticulitis sumanth SOB. 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- TUBAL LIGATION HX 05/16/2009No family history on file.Social History Marital status: Spouse name: Jeremiah Years of education: Number of children: 2Occupational 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 History Main Topics Smoking status: Current Every Day Smoker Packs/day: 0.00 Years: 0.00 Smokeless tobacco: Never Used Alcohol use: No Drug use: No Sexual activity: Yes Partners with: Male control/protection: Tubal LigationCurrent Outpatient Prescriptions:traMADol (ULTRAM) 50 mg tablet Take 50 mg by mouth every 6 hours asneeded.No current facility-administered medications for this visit.Allergies As of Date: 06/14/2018(No Known Allergies)Fully Assessed 06/14/2018REVIEW OF SYSTEMSExpanded ROS: See HPI for ROSAllergies and current medication updated:YesEXAM: BP 170/98 Temp (Src) 99.3 (Left Tympanic) Wt 182 lb (82.6kg) LMP 05/13/2018GENERAL: pleasant, female in no apparent distressHEENT: Normocephalic and atraumaticNECK: full range of motionDERMATOLOGY: Normal and without lesionsCHEST: Normal inspiratory effortABDOMEN: Soft, no masses and diffuse tenderness. No rebounding, gaurding,or rigidity. Non-distendedPELVIC: external genitalia normal, no vulvar lesions, no cervical lesions,normal appearing perineal body and perianal region. Scant bloody dischargepresentBIMANUAL: uterus normal size, shape and consistency and no adnexal masses.+Diffuse tendernessNEURO: alert and oriented x3,exam grossly non-focalEXTREMITIES: normalASSESSMENT AND PLAN:Encounter Diagnosis ICD-10-CM1. Pelvic pain in female R10.2 US FEMALE PELVIS TRANSVAG GC/CHLAMYDIA DNA DET BACT/JENY VAG GRAM STAIN ABEL CBC AND DIFF2. Urinary frequency R35.0 UA DIP, URINE (POC) URINE CULTURE3. Fever, unspecified fever cause R50.94. Abnormal uterine bleeding (AUB) N93.95. Nausea and vomiting, intractability of vomiting not specified,unspecified vomiting type R11.26. Alternating constipation and diarrhea R19.8? Pt w/ multiple symptoms today? Discussed concern for TOA given her hx. Ordered pelvic US, CBC w/ diff,vaginitis cx, GC/CT? Urine cx ordered for urinary frequency? Abd exam is without acute peritoneal signs? Afebrile today in the office? Will follow up with US AND bloodwork and if it is a normal US, reviewedwith her the importance of following up with her PCP for further workup? Discussed return Beckie Chairez, DO gc/chlamydia amplif on 2018-06-14 Chlamydia Amplif Negative for Chlamydia Normal 06-14-2018 [facility] trachomatis by Chase collins ([id number]) amplification. Comment: Performed By: #### GCCT #### [facility] [address] [place], [place] [phone]- [phone] GC Amplification Negative for Neisseria Normal 06-14-2018 [facility] gonorrhoeae by Chase collins ([id number]) amplification. Comment: Performed By: #### GCCT #### [facility], [place] [phone]- [phone] GC/Chlam Amp Source Cervix Normal 06-14-2018 [facility] ([id number]) Comment: Performed By: #### GCCT #### [facility] [address] [place], [place] [phone]- [phone] cnov on 2018-06-14 [facility] Office Visit Normal 06-14-2018 [place] ([place]) ------DANNA RUIZ Soo [place] ([id number]) 1980 F[address] e Time Provider Department06/14/18 9:45 AM SANDER CHAIREZ During your [place] and visit today, we recorded the following information about you: Temperature Blood pressure Weight Last (74374 ) Period 99.3 degrees 170/98 8 2.6 kg 05/13/18ced Chairez MD 06/14/2018 1:11 PM SignedDanna Garrett Ruiz is a 37 year old female who presents for problem visit formultiple complaints.HPI:Four days ago she started having lower abdomin al burning, as well as pelvicpressure. Incontinence 2 days ago when running up stairs; she repor ts it was alarge amount of urine. Increased frequency with urination. No dysuria or grosshematuria. H ad not had incontinence prior.+ Bloated and low back pain. Fever of101.9 two days ago. +N/V. Keeping PO down, but not able to eat full meals.Emesis about 6 times over the last 1 month. Constipation a nd diarrhea x 3months. Generalized abdominal pain x 3 months. Does not feel better afterhaving BM.L MP 05/13/18 - menses started as a complete gush. Saturated through clothing.Has been bleeding s arnold then, like a light period now and not heavy.Occasionally has gushes of discharge that look like chicken fat. Shedescribes the blood as like yellow blood.She states these symptoms are similar t o when she was treated for a TOA. Shesays at that time she was admitted and treated for diverticulit is and a SOB.She was discharged home, and represented to the ED and was 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[employer] 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 History Main Topics Smoking status: Current Every Day Smoker Pac ks/day: 0.00 Years: 0.00 Smokeless tobacco: Never Used Alcohol use: No Drug use: No Sexual activity : Yes Partners with: Male control/protection: Tubal LigationCurrent Outpatient Prescriptions:tra MADol (ULTRAM) 50 mg tablet Take 50 mg by mouth every 6 hours as needed.No current facility-a dministered medications for this visit.Allergies As of Date: 06/14/2018(No Known Allergie s)Fully Assessed 06/14/2018REVIEW OF SYSTEMSExpanded ROS: See HPI for ROSAllergies and current med ication updated:YesEXAM: BP 170/98 Temp (Src) 99.3 (Left Tympanic) Wt 182 lb (82.6kg) LMP07/30/2 018GENERAL: pleasant, female in no apparent distressHEENT: Normocephalic and atraumatic NECK: full range of motionDERMATOLOGY: Normal and without lesionsCHEST: Normal inspiratory effortABD OMEN: Soft, no masses and diffuse tenderness. No rebounding, gaurding, orrigidity. Non-distendedPEL DANYA: external genitalia normal, no vulvar lesions, no cervical lesions,normal appearing per ineal body and perianal region. Scant bloody dischargepresentBIMANUAL: uterus normal size, shape an d consistency and no adnexal masses.+Diffuse tendernessNEURO: alert and oriented x3,exam grossly non -focalEXTREMITIES: normalASSESSMENT AND PLAN:Encounter Diagnosis ICD-10-CM1. Pelvic pain in f emale R10.2 US FEMALE PELVIS TRANSVAG GC/CHLAMYDIA DNA DET BACT/JENY VAG GRAM STAIN ABEL CBC A ND DIFF2. Urinary frequency R35.0 UA DIP, URINE (POC) URINE CULTURE3. Fever, unspecified fever cau se R50.94. Abnormal uterine bleeding (AUB) N93.95. Nausea and vomiting, intractability of vomiting n ot specified, unspecifiedvomiting type R11.26. Alternating constipation and diarrhea R19.8? Pt w/ mu ltiple symptoms today? Discussed concern for TOA given her hx. Ordered pelvic US, CBC w/ diff,vagin itis cx, GC/CT? Urine cx ordered for urinary frequency? Abd exam is without acute peritoneal sig ns? Afebrile today in the office? Will follow up with US AND bloodwork and if it is a normal US, re viewed withher the importance of following up with her PCP for further workup? Discussed return pre Pallavi Mcpherson Provider: SELF [200]Allergies As of Date: 06/14/2018(No Known Al lergies)Date Reviewed: 06/14/2018Reviewed by: Kati Stark LPN - Fully AssessedReason for Vis it: Pelvic Pain [282] Cmt: pelvic pressure, dyspareuniaReason For Visit History RecordedPrimary Visi t Diagnosis:Pelvic pain in female [R10.2] Other Visit Diagnoses:Urinary frequency [R35.0] Fever, uns pecified fever cause [R50.9] Abnormal uterine bleeding (AUB) [N93.9] Nausea and vomiting, intract ability of vomiting not specified, unspecified vomiting type [R11.2] Alternating constipation and diarrhea [R19.8]Order(s):US FEMALE PELVIS TRANSVAG [[id number]] Order #: [id number] FUTURE UA DIP, URINE (POC) [[id number]] Order #: [id number]. #:[id number] URINE CULTURE [SQURCUL] Order #: [id number] GC/CHLAMYDIA DNA DET [SQGCCAMP] Order #: [id number] BACT/JENY VAG GRAM STAIN [SQBVCNSM] Order #: [id number] FUTURE ABEL CBC AND DIFF [SQWCBC DF] Order #: [id number] FUTUREPrescriptions as of 06/14/2018 Sig: LISDEXAMFETAMINE 40 MG CAPSU LE Take 40 mg by mouth once ajit* TRAMADOL 50 MG TABLET Take 50 mg by mouth every 6 h* HYDROCODONE 5 MG-ACETAMINOPHE* METRONIDAZOLE 500 MG TABLET Take 500 mg by mouth every 12* DOXYCYCLINE HYCLAT E 100 MG CA* Take 100 mg by mouth twice da* HYDROCODONE 5 MG-ACETAMINOPHE* Take 1 tabl et by mouth every * FLUCONAZOLE 150 MG TABLET Take one tablet today and one* Patient not taking: Rep orted on 06/14/2018 CLOTRIMAZOLE-BETAMETHASONE 1 * Apply 1 application to affect* Patient not taking: Reported on 06/14/2018Problem Lis t As Of Date: 06/14/2018(None)Disposition: Return in about 2 months (around 08/14/2018) for Annual exam.Follow-up and Disposition History Jose rdedEncounter Number: [id number] Status:Closed by SANDER CHAIREZ MD on 06/14/18 bact/cand vag grm st on 2018-06-14 Bact/Cand Vag Grm Sp. Request/Comment: - Swab Norm al 06-14-2018 [facility] [place] ([id number]) Smear Result - BACTERIAL VAG INOSIS RESULT: Stain results indicate mixed morphotypes consistent with transition from normal vaginal helen. No Polymorphonuclear Leukocytes Rare Epithelial cells No Yeast observed Comment: Performed By: #### BVCNSM ## ##[facility] [id number], [place] [id number] [phone] No panel information on 2007-09-26 CONVERTED ELECTRONIC ROSA M JONES M.D., PATHOLOGIST 09-26-2007 [facility] SIGNATURE (Electronic signature on file) ([id number]) Final Signed Out: 09/26/2007 16:19 CONVERTED FINAL ENDOMETRIUM, CURETTAGE - CHO RIONIC VILLI AND DECIDUA, CONSISTENT WITH 09-26-2007 [facility] DIAGNOSIS INTRAUTERINE . ([id number]) CONVERTED ORDERING Ordering Provider: MILLI 09-26-2007 [facility] PROVIDER MARGARETTE DIALLO ( [id number]) Vital Signs Vital Sign Description Value / Unit Date Location The following section is limited to 5 en tries per type and includes entries from the following time range: 20180625 - [id number] 1. Body mass index (BMI) [Ratio] 06-25-[address] [facility] ([id number] Encounters Date Type Reason Provider Location 08-09-2018 - [facility] [place] (0000 0) 07-03-2018 - [facility] 07-04-2018 [facility] [place] (0000 0) 06-25-2018 - [facility] 06-26-2018 [facility] [place] (0000 0) 06-14-2018 - [facility] 06-14-2018 [facility] [place] (0000 0) 06-14-2018 - [facility] 09-03-2018 [place] (0000 0) 09-25-2007 - [facility] 09-25-2007 procedure [facility] 09-25-2007 - Results Only [facility] 09-25-2007 [facility] Procedures Procedure Name Date Provider Location CON[facility]-25-2007 [facility] ([id number]) Plan of Treatment Plan Description Date Location INFLUENZA (#1) INFLUENZA (#1) 2020 - [facility] 06-15-2020 ([id number]) HPV TESTING HPV TESTING 2010 - [facility] 2010 ([id number]) PAP TESTING PAP TESTING 2001 - [facility] 2001 ([id number]) DTAP,TDAP,TD (1 - DTAP,TDAP,TD (1 - Tdap) 12-31-1999 - [facility] Tdap) 12-31-1999 ([id number]) HEPATITIS C SCREENING HEPATITIS C SCREENING 1998 - [facility] 1998 ([id number]) HIV SCREENING HIV SCREENING 1998 - [facility] 1998 ([id number]) Social History Type Social History Description Date Locat ion Tobacco smoking status NHIS Unknown if ever smoked [facility] ([id number]) Sex Assigned At Not on file [facility] ([id number]) The following information is from the original human readable contentNo Social History Records FoundNo Social History Records FoundNo Social History Records Found Summary Purpose Family History No Family History Records FoundNo Family History Records Found Advance Directives No Advanced Directives Records FoundNo Advanced Directives Records Found Additional Source Comments FOR RECORDS PERTAINING TO PATIENTS WHO ARE OR HAVE BEEN ENROLLED IN A CHEMICAL DEPENDENCY/SUBSTANCE ABUSE PROGRAM, SOME INFORMATION MAY BE OMITTED. This clinical summary was aggregated from multiple sources. Caution should be exercised in using it in the provision of clinical care. This summary normalizes information from multiple sources, and as a consequence, information in this document may materially changethe coding, format and clinical context of patient data. In addition, data may be omittedin some cases. CLINICAL DECISIONS SHOULD BE BASED ON THE PRIMARY CLINICAL RECORDS. [facility] provides no warranty or guarantee of the accuracy or completeness of information in this document. UNRECOGNIZED CONTENT PROVIDED BELOW FOR UNRECOGNIZED SECTION INFORMATION SOURCE DATE CREATED AUTHOR AUTHOR'S ORGANIZATIO N 09/23/2018 [facility] DATE CREATED AUTHOR AUTHOR'S ORGANIZATIO N 03/11/2020 [facility] Found ation ([place]) UNRECOGNIZED CONTENT PROVIDED BELOW FOR UNRECOGNIZED SECTION Source Comments In the event this information is protected by the Federal Confidentiality of Alcohol and Drug Abuse Patient Records regulations: The Federal rules restrict any use of the information to criminally investigate or prosecute any alcohol or drug abuse patient.[facility] the event this information is protected by the Federal Confidentiality of Alcohol and Drug Abuse Patient Records regulations: The Federal rules restrict any use of the information to criminally investigate or prosecute any alcohol or drug abuse patient.[facility]
== END 2020-03-11 11:12 | disposition home or self-care (01) ==
LOC: SDC 07:37 → AC 07:37
PROVIDERS: Referring Provider Urology; Visit Provider Urology
PROC: (CPT 52332; principal; 2020-03-11 09:20)
DX: N13.2 Hydronephrosis with renal and ureteral calculous obstruction (principal); N30.80 Other cystitis without hematuria; R39.15 Urgency of urination; R50.9 Fever, unspecified; F17.210 Nicotine dependence, cigarettes, uncomplicated; Z79.1 Long term (current) use of non-steroidal anti-inflammatories (NSAID); Z79.899 Other long term (current) drug therapy; Z11.59 Encounter for screening for other viral diseases
CPT/HCPCS: 52332; 76000; 87635; G2023; J7120; C2617; J2405; U0004

== ENCOUNTER 2020-03-12 05:13 | Day surgery (SDC) | payer MEDICAID, SELFPAY ==
[2020-03-11 08:01] VITALS: BMI 33.8
[2020-03-12] VITALS (9 sets, daily range): BP systolic 145–234; BP diastolic 72–114; PULSE 55–91; RESP 16–18; TEMP 36.1–36.8; O2SAT 92–99; BMI 34.2
--- NOTE | 2020-03-12 05:22 | ED.VIS.GEN ---
History of Present Illness Chief Complaint: Complaint Informant: Patient Narrative: Patient stated she is having pain secondary to kidney stone. The patient has known kidney stone. She had a ureter stent placed yesterday. She stated that her stent came half out this evening and she pulled the rest out. She is having some pain after removing the stent. Describes an aching throbbing pain. She stated next week she is following up with Dr. Jeter urologist to have the stone removed. She does have an appointment this morning as well at 8 AM. She comes in for pain control. She tried to take Pyridium but was nauseous and vomited once. She felt fine before the stent came out tonight. She is able to urinate. Current severity is moderate. Patient is frustrated that her stent fell out tonight. - Past Medical History (1) Bladder neoplasm of uncertain malignant potential Status: Acute (2) Urinary urgency Status: Acute (3) Urinary frequency Status: Acute (4) Ureteral calculus, left Status: Acute (5) Hydronephrosis Status: Acute Past Medical History - Allergies and Home Meds Allergies/Adverse Reactions: Allergies No Known Allergies Allergy (Verified 03/12/20 07:11) Primary Care Physician: Ivy Jeter MD [STAFF PHYSICIAN] - Prior records reviewed: Yes Past Medical History: - Surgical History: - - cystoscopy and bladder biopsy Lives: With Family Smoking Status: Current every day smoker Alcohol: None Drugs: None Review of Systems General: Denies: Chills, Fever, Sweats Eyes: Denies: Visual changes - bilaterally, Diplopia ENT: Denies: Rhinorrhea, Sore throat Cardiovascular: Denies: Chest pain, Palpitations Respiratory: Denies: Dyspnea, Cough, Dyspnea on exertion Gastrointestinal: Reports: Nausea, Vomiting. Denies: Abdominal pain, Diarrhea, Melena, Hematochezia Genitourinary: Denies: Dysuria, Hematuria, Frequency Musculoskeletal: Reports: Back pain. Denies: Extremity Pain Skin: Denies: Rash, Wounds Neurological: Denies: Headache, Weakness, Numbness Physical Exam General: Well nourished, Well developed, No Acute Distress Head: Normocephalic, Atraumatic Eyes: Perrl, EOMI ENT: Moist mucous membranes, No rhinorrhea Neck: Supple, Nontender Cardiovascular: Regular rate, Regular rhythm, No murmurs Respiratory: No distress, CTA bilaterally, Chest nontender Abdomen: Soft, Nontender, Nondistended, Normal bowel sounds Back: Nontender, Normal Inspection Extremities: Nontender, No edema Skin: Normal color, No rash Neurological: Alert, Oriented x3, Cranial nerves II-XII grossly intact, Normal Strength, Normal Sensation Psychological: Normal affect, Normal Mood Diagnostic/Tx/Re-eval - Medical Decision Making Patient given injection of Dilaudid oral Zofran and Toradol. At this time this is more of a pain control issue. Her stent was examined and appears completely intact. I do not feel she needs imaging. I do not feel she needs lab work. Discussed with Dr. Jeter and the patient is going to go to the operating room for further definitive management of her kidney stone this morning. IV was placed. ED Disposition - Plan for ED Patient: Disposition: [facility] Hospital or Unit Diagnosis: Ureteral stent displacement, Kidney stone Prescriptions: Oxycodone HCl/Acetaminophen [Percocet 5/325] 1 - 2 tab PO Q6H PRN PRN 3 Days #12 tab PRN Reason: Pain Transmission Status: Received by [facility] [address] [facility] Ondansetron [Zofran Odt] 8 mg PO Q8H PRN PRN #20 tab PRN Reason: Nausea Transmission Status: Received by [id number] [facility]. Additional Instructions: Please follow-up with your urologist in the office today for further evaluation and treatment options after your stent was dislodged and removed on accident
[2020-03-12] MEDS: Ondansetron ODT 4 MG Tablet 8 MG PO (05:27)
[2020-03-12] MEDS: Ketorolac 15 MG/ML Vial IM (05:27)
[2020-03-12] MEDS: HYDROmorphone 1 MG/ML Syringe IM (05:27)
[2020-03-12] MEDS: 0.9% Normal Saline 1,000 ML 150 ML IV (07:30)
--- NOTE | 2020-03-12 07:37 | ED.RN ---
report called to carlie.
--- NOTE | 2020-03-12 10:00 | CALC_PTH ---
PATIENT: DANNA RUIZ [place] [facility] [place][id number] AGE/SX: 39/F ROOM: RE03/12/[address]: Dr. Ivy eJter MD : 1980 BED: DIS: 03/12/2020 SPEC #: [id number] RECD: 03/12/20 12:55 STATUS: MARIELA MARTIN #: [id number] RADHA: 03/12/20 10:[address]: Ivy Jeter DEPT: SURGICAL PATHOLOGY RECD BY: Gustavo Do ENTERED: 03/15/20 09:27 SP TYPE: Calculi OTHR DR: Dr. Magnolia Jay, Tissues: CALCULI Procedures: Surgery Specimen Level I HEADER OPERATION: Cysto, ureteroscopy, retro, laser, stent PRE-OP DIAGNOSIS: Bladder neoplasm; urgency, frequency; ureteral calculus, hydronephrosis TISSUE SUBMITTED: Left ureteral calculi GROSS DIAGNOSIS Fragments of stone, clinically left ureteral calculi. DIANA:edelmira 03/15/20 COMMENT If chemical analysis is requested on this specimen, please notify the laboratory. GROSS DESCRIPTION Received is one container labeled with the patient's name and designated left ureteral calculi. The specimen consists of multiple fragments of bullard-brown stone measuring in aggregate 1 x 0.2 x 0.1 cm. The specimen is saved for chemical analysis if requested. / DIANA:edelmira 03/15/20 CPT: 37398
[2020-03-12] MEDS: Lactated Ringers 1,000 ML 100 ML IV (11:15)
--- NOTE | 2020-03-12 11:45 | HP.PCM_ITS ---
Problem List (1) Ureteral calculus, left Status: Acute (2) Hydronephrosis Status: Acute History of Present Illness Date of Admission: 03/12/20 Chief Complaint: left flank pain, nausea and vomiting. The patient is a 39 year old F with a distal left ureteral calculus with hydronephrosis. Her ureteral stent came out last night and she presented to the ER with nausea, vomiting and uncontrolled pain. She has been on antibiotics, no fevers, and is agreeable to laser lithotripsy today. Risks were discussed including that of COVID-19. She understands and desires to proceed. Past Medical History Allergies No Known Allergies Allergy (Verified 03/12/20 07:11) Home Medications: Ambulatory Orders Medication Instructions Recorded Ibuprofen [Motrin] 400 mg PO Q4H PRN 06/09/17 Lisdexamfetamine Dimesylate 40 mg PO DAILY 07/30/18 [Vyvanse] Metoprolol Tartrate [Lopressor 40 mg PO QHS 12/12/18 (beta mima)] Cephalexin [Keflex] 500 mg PO 4X/DAY 03/10/20 Phenazopyridine HCl [Pyridium] 200 mg PO TID PRN PRN 7 Days #30 03/11/20 tab Ondansetron [Zofran Odt] 8 mg PO Q8H PRN PRN #20 tab 03/12/20 Oxycodone HCl/Acetaminophen 1 - 2 tab PO Q6H PRN PRN 3 Days 03/12/20 [Percocet 5/325] #12 tab Surgical History: - - cystoscopy and bladder biopsy Lives: With Family Smoking Status: Current every day smoker Alcohol: None Drugs: None Review of Systems Constitutional: Denies: Chills, Fever Eyes: Denies: Vision Change HEENT: Denies: Visual Changes Cardiovascular: Denies: Chest Pain, Chest Tightness Respiratory: Denies: Cough, Shortness of Breath Gastrointestinal: Reports: Abdominal Pain, Nausea, Vomiting Genitourinary: Reports: Frequency, Urgency Musculoskeletal: Denies: Muscle pain Skin: Denies: Wounds Neurological: Denies: Difficulty swallowing VTE Information - Inpt Only VTE Present on Admission: Yes VTE Mechan Device Prophylaxis: SCD's VTE Pharm Prophylaxis ordered?: No Reason prophylaxis not ordered:: Treatment Not Indicated Patient Problems: Active and Suspected Problems Ureteral stent displacement (Acute) Kidney stone (Acute) - Physical Exam Vitals/I&O's: Vital Signs Temp Pulse Resp BP Pulse Ox 97.0 F L 74 16 151/94 H 95 03/12/20 09:54 03/12/20 09:54 03/12/20 09:54 03/12/20 09:54 03/12/20 09:54 Oxygen Delivery Method Room Air Weight: 84.822 kg Body Mass Index (BMI) 34.2 Intake and Output for Last 24 Hours 03/10/20 03/11/20 03/12/20 23:59 23:59 23:59 Intake Total 1000 / 1000 Balance 1000 / 1000 General: Alert, Oriented x3, No apparent distress HEENT: Atraumatic, Normocephalic Oral: Moist Mucosa Neck: Supple, Trachea Midline Lungs: Clear to auscultation, Normal air movement Cardiovascular: Regular rate, Regular Rhythm Abdomen: Soft, Non Tender, Non-Distended Extremities: No cyanosis Skin: No rashes Musculoskeletal: No Muscle Wasting Neurological: Cranial nerves II-XII grossly intact, Neuro grossly intact Psych/Mental Status: Normal Affect, Alert and oriented to time, place, person, mood and affect Current Medications Sodium Chloride () 1,000 mls @ 150 mls/hr IV .Q6H40M [facility] Last Infusion: 03/12/20 11:15 Dose: Infused Documented by: Lactated Ringer's () 1,000 mls @ 100 mls/hr IV .Q10H [facility] Last Admin: 03/12/20 11:15 Dose: 100 mls/hr Documented by: Assessment/Plan All Active Problems Bladder neoplasm of uncertain malignant potential (Acute) Urinary urgency (Acute) Urinary frequency (Acute) Ureteral calculus, left (Acute) Hydronephrosis (Acute) Ureteral stent displacement (Acute) Kidney stone (Acute) cystoscopy, left ureteroscopy, laser lithotripsy and left ureteral stent insertion Procedure Criteria Procedure Type: Essential Procedure Essential: Yes Criteria Statement: On 12/30/2019 the [facility] ([facility]) Public Order signed by [facility] Director Kate Rondon M.D., regarding the Management of Non-Essential Surgeries and Procedures for the purpose of preserving Personal Protective Equipment (PPE) and critical hospital capacity and resources within [place] went into effect as of 12/31/2019 at 5:00PM. According to the [facility] Public Order: This action will remain in full force and effect until the State of Emergency declared by the Governor no longer exists or the Director of the [facility] rescinds or modifies this Order. This [facility] order stated all non-essential or elective surgeries and procedures that utilize PPE should be delayed unless there is undue risk to the current or future health of a patient. After reviewing the aforementioned [facility] Public Order and the patient's clinical case, I have determined that the scheduled procedure meets the criteria to go forward. Risk to Patient if Procedure Delayed: Risk of rapidly worsening to severe symptoms if delayed - renal obstruction, dehydration, sepsis etc
[2020-03-12] MEDS: Cefazolin 2 GM in 0.9% Normal Saline 100 ML IV (11:47)
--- NOTE | 2020-03-12 11:50 | OP.PCM_ITS ---
Problem List (1) Ureteral calculus, left Status: Acute (2) Hydronephrosis Status: Acute Report of Operation Date of Procedure: 03/12/20 Pre-Operative Diagnosis: left ureteral calculus with hydronephrosis Post-Operative Diagnosis: same Surgery/Procedure Performed:: cystoscopy, left ureteroscopy, laser lithotripsy, left ureteral stent Type of Anesthesia:: General Specimen's removed: Ureteral stone fragments Description of Procedure: The patient is a 39-year-old female with a distal left ureteral calculus whose ureteral stent that was inserted yesterday came out through the urethra and was removed during the middle of the night. She now presents for definitive laser lithotripsy and removal of her stone. Risks, benefits and alternatives were discussed including that of LENNIE and she agreed to proceed with intervention. The patient was taken to the operating room and placed on the operating room table. Anesthesia monitored the head, neck, airway, IV access and vital signs throughout the case. Once anesthesia was appropriately administered, the patient was placed into dorsal lithotomy position and was prepped and draped in usual sterile fashion. At this time a cystourethroscopy was performed. The left ureteral orifice was identified and intubated with a 0.035 Glidewire. A se mirigid ureteroscope was then inserted into the left ureteral orifice and the stone was visualized in the distal left ureter. The stone fragment was quite large at approximately 8 mm. A 270 ?m fiber was then used to laser the stone. Even with increased power and hertz, the stone was still not breaking up. I switched to a 400 ?m fiber and the stone easily fragmented. The fragments were removed with the basket 2.4 Venezuelan. Ureteroscopy was then performed proximal to the area of the stone and no further sizable fragments were identified. At this time the ureteroscope was removed. The cystoscope was then used to insert a 6 Venezuelan 24 cm double-J ureteral stent over the wire with curling in the renal pelvis as well as the urinary bladder. This was done under fluoroscopic visualization. This time the patient's bladder was emptied and the case was terminated. The patient was taken to the recovery room in good condition. There were no complications during the procedure. Grafts/Implants Used: 6 x 24 JJ stent - Complications None - Admit VTE Documentation VTE Present on Admission: Yes VTE Mechan Device Prophylaxis: SCD's VTE Pharm Prophylaxis ordered?: No Reason prophylaxis not ordered:: Treatment Not Indicated
--- NOTE | 2020-03-12 11:51 | DCINST_ITS ---
Discharge Diet: No Restrictions Discharge Activity: May not drive while taking narcotic pain medications. May resume sexual activity in: 1 week Call your doctor if you observe: Fever of 101 or Higher, Inability to urinate, Inability to have a bowel movement Allergies/Adverse Reactions: Allergies No Known Allergies Allergy (Verified 03/12/20 07:11) Medications to take at Discharge Ibuprofen [Motrin] 400 mg PO Q4H PRN 06/09/17 Lisdexamfetamine Dimesylate [Vyvanse] 40 mg PO DAILY 07/30/18 Metoprolol Tartrate [Lopressor (beta mima)] 40 mg PO QHS 12/12/18 Cephalexin [Keflex] 500 mg PO 4X/DAY 03/10/20 Phenazopyridine HCl [Pyridium] 200 mg PO TID PRN PRN 7 Days #30 tab 03/11/20 Ondansetron [Zofran Odt] 8 mg PO Q8H PRN PRN #20 tab 03/12/20 Oxycodone HCl/Acetaminophen [Percocet 5/325] 1 - 2 tab PO Q6H PRN PRN 3 Days #12 tab 03/12/20 The following prescriptions were given: Oxycodone HCl/Acetaminophen [Percocet 5/325] 1 - 2 tab PO Q6H PRN PRN 3 Days #12 tab PRN Reason: Pain Transmission Status: Received by [address] Ondansetron [Zofran Odt] 8 mg PO Q8H PRN PRN #20 tab PRN Reason: Nausea Transmission Status: Received by [address] Primary Care Physician: Magnolia Jay DO [Primary Care Provider] - Test Results: Test results from this visit will be discussed in further detail at your follow- up appointment, if applicable. Please Follow Up With: Ivy Jeter MD When: call office for appt Proposed Discharge Date: 03/12/20
--- OUTSIDE RECORDS SUMMARY | 2020-07-27 19:06 | XMS RPT_ITS | CCD ---
:1980 External Reference #:[id number] Author Organization [facility] Care Team Providers Name Role Phone WISWELL Unavailable Unavailable WISWELL Unavailable Unavailable WISWELL Unavailable Unavailable WISWELL Unavailable Unavailable WISWELL Unavailable Unavailable WISWELL Unavailable Unavailable Pcp Primary Care Provider Unavailable Yana Cruz Primary Care Provider Pcp Primary Care Provider Unavailable Garrett Jay Primary Care Provider Problems Category Problem Name Status Date Location Abdominal pain Pelvic and perineal pain Active 06-14-2018 - [facility] (0000 0) Unclassified Unknown / UNK(Unknown) Active 06-14-2018 - [facility] (0000 0) Results Result Name Value Range Unit Interpretation Flag Date Location cur on 2020-03-11 CUR . Normal 03-11-2020 [facility] MICRO - Microbiology [facility] ([place]) ([address]) PROCEDURE: Urine Culture [*1] SOURCE: Urine, Clean Catch BODY SITE: COLLECTED DATE/TIME: 03/09/20 16:14 EDT RECEIVED DATE/TIME: 03/10/2020 19:59 EDT START DATE/TIME: 03/10/2020 19:59 EDT FREE TEXT SOURCE: FINAL REPORTS Final Report [] Verified Date/Time/Personnel: 03/11/2020 13:56 EDT 10,000 - 50,000 cfu/ml Multiple bacterial morphotypes presen t. Probable Contamination. Suggest recollection if clinically indicated. Performing Locations *1: This test was performed at: [facility], [address] [place] [address], [address]- , U nited [facility] Comment: Performed By: #### CBC, ADIF F, ANEU, LIP, CMP, GFR #### [address] [address] ua on 2020-03-09 Color (U) Yellow Normal 03-09-2020 [facility] ([place]) ([address]) Comment: Performed By: #### UA, PREGU , UAMICAO #### [address] [address] Glucose (U) [Mass/Vol] Negative Negative mg/dL Normal 020 [facility] ([place]) ([address]) Comment: Performed By: #### UA, PREGU , UAMICAO #### [address] [address] Ketones Ql (U) Negative Negative Normal 03-09-2020 [facility] ([place]) ([address]) Comment: Performed By: #### UA, PREGU , UAMICAO #### [address] [address] UA Appear Slightly Cloudy Clear Abnormal 03-09-2020 [facility] ([place]) ([address]) Comment: Performed By: #### UA, PREGU , UAMICAO #### [address] [address] UA Blood Small Negative Abnormal 03-09-2020 [facility] ([place]) ([address]) Comment: Performed By: #### UA, PREGU , UAMICAO #### [address] [address] UA Leuk Est Moderate Negative Abnormal 03-09-2020 [facility] ([place]) ([address]) Comment: Performed By: #### UA, PREGU , UAMICAO #### [address] [address] UA Nitrite Negative Negative Normal 03-09-2020 [facility] ([place]) ([address]) Comment: Performed By: #### UA, PREGU , UAMICAO #### [address] [address] UA pH 7.0 5.0 - 8.0 Normal 03-09-2020 [facility] ([place]) ([address]) Comment: Performed By: #### UA, PREGU , UAMICAO #### [address] [address] UA Protein Negative Negative Normal 03-09-2020 [facility] ([place]) ([address]) Comment: Performed By: #### UA, PREGU , UAMICAO #### [address] [address] UA Spec Grav 1.020 1.015-1.025 Normal 03-09-2020 [facility] ([place]) ([address]) Comment: Performed By: #### UA, PREGU , UAMICAO #### [address] [address] UA Specimen Type Clean Catch Normal 03-09-2020 [facility] ([place]) ([address]) Comment: Performed By: #### UA, PREGU , UAMICAO #### [address] [address] UA Urobilinogen 0.2 0.2-1.0 E.U./dL Normal 03-09-2020 [facility] ([place]) ([address]) Comment: Performed By: #### UA, PREGU , UAMICAO #### [address] [address] Urobilinogen Qn (U) Negative Negative Normal 03-09-2020 [facility] ([place]) (0000 0) Comment: Performed By: #### UA, PREGU , UAMICAO #### [address] [address] pregu on 2020-03-09 HCG ( test) Ql (U) Negative Normal [facility] ([place]) (0000 0) Comment: Performed By: #### UA, PREGU , UAMICAO #### [address] [address] test (u) int HCG not detected. 03-09-2020 [facility] ([place]) (0000 0) Comment: Performed By: #### UA, PREGU , UAMICAO #### [facility] [address] [place], [place] [address] lip on 2020-03-09 Lipase Level 69 73-393 U/L Low 03-09-2020 [facility] ([place]) ([address]) Comment: Performed By: #### CBC, ADIF F, ANEU, LIP, CMP, GFR #### [facility] [address] [place], [place] [address] ct abd/pelvis w/ iv contrast only on 2020-03-09 CT ABD/PELVIS W/ ORIGINAL Normal 03-09-2020 [facility] IV CONTRAST ONLY CT ABD/PELVIS W/ IV CONTRAST ONLY [facility] ([place]) ([address]) Clinical Statement: pain. Up per abdominal pain [...] Albumin [Mass/Vol] 3.5 3.5-5.0 G/dL Normal 03-09-2020 [facility] ([place]) ([address]) Comment: Performed By: #### CBC, ADIF F, ANEU, LIP, CMP, GFR #### [address] [address] [place], [place] [address] Albumin/Globulin [Mass ratio] 0.9 1.1-2.5 ratio Low 03-09-2020 [facility] ([place]) ([address]) Comment: Performed By: #### CBC, ADIF F, ANEU, LIP, CMP, GFR #### [address] [address] ALP [Catalytic activity/Vol] 117 40-135 U/L Normal 0 03-09-2020 [facility] ([place]) ([address]) Comment: Performed By: #### CBC, ADIF F, ANEU, LIP, CMP, GFR #### [address] [address] ALT [Catalytic activity/Vol] 29 10-35 U/L Normal 0 03-09-2020 [facility] ([place]) (0000 0) Comment: Performed By: #### CBC, ADIF F, ANEU, LIP, CMP, GFR #### [address] [address] AST [Catalytic activity/Vol] 11 10-40 U/L Normal 0 03-09-2020 [facility] ([place] (0000 0) Comment: Performed By: #### CBC, ADIF F, ANEU, LIP, CMP, GFR #### [address] [address] Bili Total 0.3 0.2-1.0 mg/dL Normal 03-09-2020 [facility] ([place]) ([address]) Comment: Result Comment: Use of this assay is not recommended for patients undergoing treatment with eltrombopag d ue to the potential for falsely elevated results. Performed By: #### CBC, ADIF F, ANEU, LIP, CMP, GFR #### [address] [address] Calcium [Mass/Vol] 8.8 8.4-10.2 mg/dL Normal 03-09-2020 [facility] ([place]) (0000 0) Comment: Performed By: #### CBC, ADIF F, ANEU, LIP, CMP, GFR #### [address] [address] Chloride [Moles/Vol] 101 98-107 mmol/L Normal 0 [facility] ([place]) (0000 0) Comment: Performed By: #### CBC, ADIF F, ANEU, LIP, CMP, GFR #### [address] [address] CO2 [Moles/Vol] 26 22-29 mmol/L Normal 03-09-2020 [facility] ([place]) ([address]) Comment: Performed By: #### CBC, ADIF F, ANEU, LIP, CMP, GFR #### [address] [address] Creatinine [Mass/Vol] 0.68 0.55-1.02 mg/dL Normal 03-09-20 [facility] ([place]) ([address]) Comment: Performed By: #### CBC, ADIF F, ANEU, LIP, CMP, GFR #### [address] [address] Electrolyte Balance 11.0 mEq/L Normal 03-09-2020 [facility]) ([address]) Comment: Performed By: #### CBC, ADIF F, ANEU, LIP, CMP, GFR #### [address] [address] Globulin (S) [Mass/Vol] 3.7 G/dL Normal 2019 [facility] ([place]) ([address]) Comment: Performed By: #### CBC, ADIF F, ANEU, LIP, CMP, GFR #### [address] [address] Glucose [Mass/Vol] 92 70-105 mg/dL Normal 03-09-2020 [facility] ([place]) ([address]) Comment: Performed By: #### CBC, ADIF F, ANEU, LIP, CMP, GFR #### [address] [address] Potassium [Moles/Vol] 4.2 3.5-5.1 mmol/L Normal 03-09-20 [facility] ([place]) (0000 0) Comment: Performed By: #### CBC, ADIF F, ANEU, LIP, CMP, GFR #### [address] [address] Protein [Mass/Vol] 7.2 6.4-8.2 G/dL Normal 03-09-2020 [facility] ([place]) ([address]) Comment: Performed By: #### CBC, ADIF F, ANEU, LIP, CMP, GFR #### [address] [address] Sodium [Moles/Vol] 138 136-145 mmol/L Normal 03-09-2020 [facility] ([place]) (0000 0) Comment: Performed By: #### CBC, ADIF F, ANEU, LIP, CMP, GFR #### [address] [address] Urea nitrogen [Mass/Vol] 7 7-18 mg/dL Normal 03-09 [facility] ([place]) (0000 0) Comment: Performed By: #### CBC, ADIF F, ANEU, LIP, CMP, GFR #### [address] [address] Urea nitrogen/Creatinine [Mass 10 7-27 ratio Normal 03-09-2020 [facility] ratio] [facility] ([place]) ([address]) Comment: Performed By: #### CBC, ADIF F, ANEU, LIP, CMP, GFR #### [address] [address] cbc on 2020-03-09 Erythrocyte distribution 15.0 11.5-14.5 % High 03-09 [facility] width (RBC) [Ratio] ([place]) ([address]) Comment: Performed By: #### CBC, ADIF F, ANEU, LIP, CMP, GFR #### [address] [address] Hematocrit (Bld) [Volume 38.5 37.0-47.0 % Normal 03-09 [facility] fraction] ([place]) (0000 0) Comment: Performed By: #### CBC, ADIF F, ANEU, LIP, CMP, GFR #### [address] [address] Hemoglobin (Bld) 13.1 12.0-16.0 G/dL Normal 03-09-2020 [facility] [Mass/Vol] [facility] ([place]) ([address]) Comment: Performed By: #### CBC, ADIF F, ANEU, LIP, CMP, GFR #### [address] [address] MCH (RBC) [Entitic mass] 29.2 27.0-31.2 pg Normal 03-09 [facility] ([place]) (0000 0) Comment: Performed By: #### CBC, ADIF F, ANEU, LIP, CMP, GFR #### [address] [address] MCHC (RBC) [Mass/Vol] 34.0 33.0-37.0 G/dL Normal 03-09-20 20 [facility] ([place]) (0000 0) Comment: Performed By: #### CBC, ADIF F, ANEU, LIP, CMP, GFR #### [address] [address] MCV (RBC) [Entitic vol] 85.9 80.0-94.0 fL Normal 2019 [facility] ([place]) (0000 0) Comment: Performed By: #### CBC, ADIF F, ANEU, LIP, CMP, GFR #### [address] [address] Platelet mean volume (Bld) 6.6 7.4-10.4 fL Low [facility] [Entitic vol] ([place]) ( [address]) Comment: Performed By: #### CBC, ADIF F, ANEU, LIP, CMP, GFR #### [address] [address] Platelets (Bld) [#/Vol] 368 130-400 10 3/mcL Normal 2019 [facility] ([place]) ([address]) Comment: Performed By: #### CBC, ADIF F, ANEU, LIP, CMP, GFR #### [address] [address] RBC (Bld) [#/Vol] 4.48 4.20-5.40 10 6/mcL Normal 03-09-2020 [facility] ([place]) (0000 0) Comment: Performed By: #### CBC, ADIF F, ANEU, LIP, CMP, GFR #### [address] [address] WBC (Bld) [#/Vol] 7.50 4.60-10.80 10 3/mcL Normal 03-09-2020 [facility] ([place]) ([address]) Comment: Performed By: #### CBC, ADIF F, ANEU, LIP, CMP, GFR #### [address] [address] .urinalysis microscopic (ao) on 2020-03-09 RBC (U) [#/Vol] 0-5 None Seen Abnormal 03-09-2020 [facility] ([place]) ([address]) Comment: Performed By: #### UA, PREGU , UAMICAO #### [address] [address] UA Bacteria 1+ /hpf Abnormal 03-09-2020 [facility] ([place]) ([address]86) Comment: Performed By: #### UA, PREGU , UAMICAO #### [address] [address] UA Squam Epithelial 5-10 None Seen Abnormal 03-09-2020 [facility] ([place]) (0000 0) Comment: Performed By: #### UA, PREGU , UAMICAO #### [address] [address] UA WBC 5-10 None Seen Abnormal 03-09-2020 [facility] ([place]) ([address]) Comment: Performed By: #### UA, PREGU , UAMICAO #### [address] [address] .neuabs on Neutrophils (Bld) 5.80 2.85-6.16 10 3/mcL Normal 03-09-2020 [facility] [#/Vol] [facility] ([place]) ([address]) Comment: Performed By: #### CBC, ADIF F, ANEU, LIP, CMP, GFR #### [address] [address] .gfr on 2020-03-09 GFR 117 ml/min/1.73sqm Normal 05-2 -2019 [facility] ([place]) ([address] 0) Comment: Result Comment: GFR Population mean for Afri can Uzbek, Non- Americans Ages 20-29 = 116 mL/min/1.73 [...] ADIF F, ANEU, LIP, CMP, GFR #### [address] [address] GFR Non- 96 ml/min/1.73sqm Normal 03-09-2020 [facility] ([place]) ([address]) Comment: Result Comment: GFR Population mean for Afri can Uzbek, Non- Americans Ages 20-29 = 116 mL/min/1.73 [...] ADIF F, ANEU, LIP, CMP, GFR #### [address] [address] .auto diff on 03-09 Ammonia (P) [Mass/Vol] 0.60 0.15-1.00 10 3/mcL Normal 03-09- 020 [facility] ([place]) ([address]) Comment: Performed By: #### CBC, ADIF F, ANEU, LIP, CMP, GFR #### [address] [address] Basophils (Bld) 0.00 0.00-0.19 10 3/mcL Normal 03-09-2020 [facility] [#/Vol] [facility] ([place]) ([address]) Comment: Performed By: #### CBC, ADIF F, ANEU, LIP, CMP, GFR #### [address] [address] Basophils/100 WBC (Bld) 0.6 0.0-2.5 % Normal 2019 [facility] ([place]) ([address] 0) Comment: Performed By: #### CBC, ADIF F, ANEU, LIP, CMP, GFR #### [address] [address] Eosinophils (Bld) 0.00 0.00-0.40 10 3/mcL Normal 03-09-2020 [facility] [#/Vol] [facility] ([place]) ([address]) Comment: Performed By: #### CBC, ADIF F, ANEU, LIP, CMP, GFR #### [address] [address] Eosinophils/100 WBC (Bld) 0.5 0.0-7.0 % Normal 02-13 [facility] ([place]) ([address] 0) Comment: Performed By: #### CBC, ADIF F, ANEU, LIP, CMP, GFR #### [address] [address] Lymphocytes (Bld) 1.00 0.77-3.85 10 3/mcL Normal 03-09-2020 [facility] [#/Vol] [facility] ([place]) ([address]) Comment: Performed By: #### CBC, ADIF F, ANEU, LIP, CMP, GFR #### [address] [address] Lymphocytes/100 WBC (Bld) 13.5 10.0-50.0 % Normal 02-13 [facility] ([place]) ([address]) Comment: Performed By: #### CBC, ADIF F, ANEU, LIP, CMP, GFR #### [address] [address] Monocytes/100 WBC (Bld) 8.1 1.7-13.0 % Normal 2019 [facility] ([place]) ([address] 0) Comment: Performed By: #### CBC, ADIF F, ANEU, LIP, CMP, GFR #### [address] [address] Neutrophils/100 WBC (Bld) 77.3 37.0-80.0 % Normal 02-13 [facility] ([place]) ([address]578) Comment: Performed By: #### CBC, ADIF F, ANEU, LIP, CMP, GFR #### [address] [address] progress on 2018-07 Protein HNO ID: [id number]: Sander Malik 08-09-[address] 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.Expanded ROS: N/AAllergies and current medication updated:YesEXAM: [...] Office Visit Normal 08-09-2018 Clestephanie and (KATHERINE) ------DANNA RUIZ ([id number]) 1980 FDat e Time Provider Ztbqbrfkwp13/26/18 9:45 AM SANDER CHAIREZ During your [place] visit today, we recorded the following information about you: Blood pressure Weight Last Period (00340) 170/96 83.9 kg 05/13/18ced Chairez MD 08/09/2018 [...] nausea, v omiting, diarrhea, or constipation.Bladder: +Bladder pain.Industrial 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.Expanded ROS: N/AA llergies and current medication [...] uterine bleeding (AUB) [N93.9]Order(s):PELVIC US WH I [8428483] Order #: [id number]: 1 FUTURE PELVIC US WHI [3295806] Order #: [id number]: 1 FEMALE PELVIS TRANSVAG [5277361] Order #: [id number] FUTUREPrescriptions as of 08/09/2018 Sig: MIRABE GRON [...] of Service: EST PATIENT VISIT LEVEL 3 [36170]Disposition: Return i n about 1 week (around 08/16/2018) for Mirena placement with SW.Follow-up and Disposition History Jose rdedEncounter Number: [id number] Status:Closed by SANDER CHAIREZ MD on 08/09/18 progress on 2018-06 Protein HNO ID: [id number]: Sander Malik 07-03-[address] [facility] Al: (none)Author Type: Clinic PhysicianType: Progress NotesFiled: [facility] 07/03/2018 5:18 PMNote Text:Danna Tucker ([id number]) Abdoulaye is a 37 year old female [...] Normal 07-03-2018 [facility] (WOOB) ------DANNA RUIZ ([id number]) 1980 [facility] e Time Provider Department07/03/18 4:00 PM SANDER [...] pain [R39.89]Order(s):TSH BLD [SQ TSH] Order #: [id number] FUTURE PROLACTIN BLD [SQPROL] Order #: [id number] FUTUREPrescriptio ns as of 07/03/2018 Sig: LISDEXAMFETAMINE [...] of Service: EST PATIENT VISIT LEVEL 3 [87040]Follow- up and Disposition History RecordedEncounter Number: [id number] Status:Closed by SANDER CHAIREZ MD on 07/03/18 progress on 2018-06 Protein HNO ID: [id number]: Sander Malik 06-25-2018 [facility] [place] ChairezService: (none)Author Type: Clinic PhysicianType: Progress NotesFiled: [facility] 06/25/2018 5:29 PMNote Text:Danna Tucker ([id number]) Abdoulaye is a 37 year old female [...] massesPELVIC: external genitalia normal, normal Bartholin's glands, urethra,Wauzeka's glands, no vulvar lesions, no cervical lesions, [...] Normal 06-25-2018 [facility] (WOOB) ------DANNA RUIZ ([id number]) 1980 [facility] Department06/25/18 3:45 PM SANDER [...] external genitalia normal, normal Bartholin's glands, urethra, Wauzeka'sglands, no vulvar les ions, no cervical lesions, [...] [N93.9]Order(s):CONSUL T TO UROLOGY [9041] Order #: [id number]: 1 ENDOMETRIAL BIOPSY [5139434] Order #: [id number] SURGICAL PATHOLOGY [5062832] Order #: [id number] as of 06/25/2018 Sig: LISDEXAMFETA MINE 40 [...] of Service: EST PATIENT VISIT LEVEL 4 [86390]Disposition: Return i n about 1 week (around 07/02/2018).Follow-up and Disposition History RecordedEncounter Number: [id number] Status:Closed by SANDER CHAIREZ MD on 06/25/18 [facility]-18-2018 [facility] ([place]OOB) ------DANNA RUIZ [facility] ([id number]) 1980 [facility] e Time Provider Department06/18/18 SANDER CHAIREZ During your visit [facility] today, we recorded the follo wing information about you:Sander Chairez MD 06/18/2018 1:48 PM SignedCalled ([id number]) patient about test results, and to see [...] Eosinophils/100 WBC Auto 0.4 % Normal 06-14 [facility] (Bld) [facility] (42263) Erythrocyte distribution 14.2 11.5-15.0 % Normal 06-14 [facility] width Auto Ratio (RBC) [facility] (18422) Hematocrit Auto Volume 39.6 36.0-46.0 % Normal 018 [facility] Fraction (Bld) [facility] (88160) Hemoglobin mass conc (Bld) 13.1 11.5-15.5 g/dL Normal [facility] (62313) Lymphocytes/100 WBC Auto 21.3 % Normal 06-14 [facility] (Bld) [facility] (09084) MCH Auto Entitic mass 29.1 26.0-34.0 pg Normal 06-14-20 18 [facility] (RBC) [facility] (35548) MCHC Auto mass conc (RBC) 33.1 30.5-36.0 g/dL Normal 05-17 [facility] (12553) MCV Auto Entitic volume 88.0 80.0-100.0 fL Normal 06-14 [facility] (RBC) [facility] (01053) Platelet mean volume Auto 8.6 9.0-12.7 fL Low 05-17 [facility] Entitic volume (Bld) [facility] (72413) Comment: Result Comment: Test perform ed at: [facility], [address] [place] [address]., [place], [place] [address]. RBC Auto #/vol (Bld) 4.50 3.90-5.20 m/uL Normal 8 [facility] (06826) WBC Auto #/vol (Bld) 11.90 3.70-11.00 k/uL High 06-14-20 18 [facility] (99666) Abel Abs Baso 0.04 <0.11 k/uL Normal 06-14-2018 [facility] (45910) Leslie Abs Eos 0.05 <0.46 k/uL Normal 06-14-2018 [facility] (68764) Leslie Abs Lymp 2.54 1.00-4.00 k/uL Normal 06-14-2018 [facility] (08467) Abel Abs Weld 0.56 <0.87 k/uL Normal 06-14-2018 [facility] (63368) Leslie Abs Neut 8.71 1.45-7.50 k/uL High 06-14-2018 [facility] (78748) Leslie Baso% 0.3 % Normal 06-14-2018 [facility] (01357) Abel Weld% 4.7 % Normal 06-14-2018 [facility] (77153) Leslie Neut% 73.3 % Normal 06-14-2018 [facility] (83006) Abel Platelet Cnt 385 150-400 k/uL Normal 8 [facility] (66369) us female pelvis transvag on 2018-06-14 US FEMALE * * *Final Report* * *DATE OF Normal 06-14-2018 [facility] PELVIS TRANSVAG EXAM: Jun 14 2018 2:46PM [facility] 1060 - US FEMALE PELVIS TRANSVAG (34603) / REASON: Pelvic and perineal pain * [...] then a follow-up is suggested in 2 months.Director Visual: PSCB Transcribe Date/Time: Jun 15 2018 8:55ADictated by : Viry SON examination was interpreted and the report reviewed and electronically signed by: JOB JANG DO on Jun 15 2018 4:37PM [id number] urine culture on 01-06-31 Bacteria Sp. Request/Comment: - Critically 2017 [facility] identified Cx Specimen received in abnormal Clinic Nom (U) preservativeCulture [facility] Result - 50,000 - (0 0000) <100,000 CFU/ml Lactose positive gram negative bacilli --> ABNORMAL ALERT Insignificant colony count. No further workup. --> ABNORMAL ALERT >=100,000 CFU/ml Normal urogenital helen Comment: Performed By: #### URCUL ### #[facility] [address] [place], [place] [id number]- [phone] progress on 2018-05 Protein mass HNO ID: [id number]: Normal 0 06-14-2018 [facility] [place] ([facility]) Janethervice: Shag[facility] ([id number]) (none)Author Type: SonographerType: Progress NotesFiled: 06/14/2018 2:47 PMNote Text: Radiology Service Progress NotePATIENT NAME: Danna LinoRN: [id number] OF SERVICE: June 14, 2018TIME: 2:46 PMPATIENT IDENTITY VERIFICATION COMPLETED USING TWO (2) METHODS: Patientconfirmed name verbally and Date of .PATIENT GENDER DATA: Female. status: : NoBreastfeeding status: N/APATIENT RELEVANT IMPLANT DATA REVIEWED: Not ApplicableRADIOLOGY DEPARTMENT: UltrasoundPERIPHERAL IV DATA: Not applicableSIGNED BY: ANURADHA BARR [facility] RVTAugust 2017 2:46 PM Protein mass HNO ID: [id number]: Normal 0 06-14-2018 [facility] conc Sander ChairezService: [place] ([id number]) (none)Author Type: PhysicianType: Progress NotesFiled: 06/14/2018 1:11 [...] Chlamydia Amplif Negative for Chlamydia Normal 06-14-2018 [facility] trachomatis by Chase collins (23792) amplification. Comment: Performed By: #### GCCT #### [facility] [address] [place], [place] [phone] GC Amplification Negative for Neisseria Normal 06-14-2018 [facility] gonorrhoeae by [place] collins (15920) amplification. Comment: Performed By: #### GCCT #### [facility] [place], [place] [phone]- [phone] GC/Chlam Amp Source Cervix Normal 06-14-2018 [facility] (97935) Comment: Performed By: #### GCCT #### [facility] [address] [place], [place] [id number]- [phone] cnov on 2018-06-14 [facility] Office Visit Normal 06-14-2018 [facility] (WOOB) ------DANNA RUIZ [facility] ([id number]) 1980 FDat e Time Provider Department06/14/18 9:45 AM SANDER CHAIREZ During your [facility] and visit today, we recorded the following information about you: Temperature Blood pressure Weight Last (32667 ) Period 99.3 degrees 170/98 8 2.6 [...] and was then treated for aTOA at [facility] t time.Hx of imaging:Pelvic US 06/10/18 [...] constipation and diarrhea [R19.8]Order(s):US FEMALE PELVIS TRANSVAG [3349806] Order #: [id number] FUTURE UA DIP, URINE (POC) [2422222] Order #: [id number]. #:[id number] AB URINE CULTURE [SQURCUL] Order #: [id number] GC/CHLAMYDIA DNA DET [SQGCCAMP] Order #: [id number] BACT/JENY VAG GRAM STAIN [SQBVCNSM] Order #: [id number] FUTURE ABEL CBC AND DIFF [SQWCBC DF] Order #: [id number] FUTUREPrescriptions as of 06/14/2018 Sig: LISDEXAMFETAMINE 40 [...] exam.Follow-up and Disposition History Jose rdedEncounter Number: [id number] Status:Closed by SANDER CHAIREZ MD on 06/14/18 bact/cand vag grm st on 2018-06-14 Bact/Cand Vag Grm Sp. Request/Comment: - Swab Norm al 06-14-2018 [facility] (67466) Smear Result - BACTERIAL VAG INOSIS RESULT: Stain results indicate mixed morphotypes consistent with transition from normal vaginal helen. No Polymorphonuclear Leukocytes Rare Epithelial cells No Yeast observed Comment: Performed By: #### BVCNSM ## ##[facility] [id number] [place], [place] [id number] [phone] No panel information on 2007-09-26 CONVERTED ELECTRONIC ROSA M JONES M.D., PATHOLOGIST 09-26-2007 [facility] SIGNATURE (Electronic signature on file) ([id number]) Final Signed Out: 09/26/2007 16:19 CONVERTED FINAL ENDOMETRIUM, CURETTAGE - CHO RIONIC VILLI AND DECIDUA, CONSISTENT WITH 09-26-2007 [facility] DIAGNOSIS INTRAUTERINE . ([id number]) CONVERTED ORDERING Ordering Provider: MILLI 09-26-2007 [facility] PROVIDER MARGARETTE DIALLO ( [id number]) Vital Signs Vital Sign Description Value / Unit Date Location The following section is limited to 5 en tries per type and includes entries from the following time range: [id number] - [id number] 1. Body mass index (BMI) [Ratio] [id number] Encounters Date Type Reason Provider Location 08-09-2018 [facility] (0000 0[facility] 07[facility]03-2018 [facility] [place] (0000 0) 06-25-2018 - [facility] [place] (0000 0) 06[facility]14-2018 - [facility] [place] (0000 0) 06-14-2018 - [facility] (0000 0) [facility]25-2007 [facility] procedure [facility] 09-25-2007 - Results Only [facility]liff Pfeiffer [facility] 09-25-2007 [facility] Procedures Procedure Name Date Provider Location CON[facility] ([id number]) Plan of Treatment Plan Description Date Location INFLUENZA (#1) INFLUENZA (#1) 2020 - [facility] 06-15-2020 ([id number]) HPV TESTING HPV TESTING 2010 - [facility] 2010 ([id number]) PAP TESTING PAP TESTING 2001 - [facility] 2001 ([id number]) DTAP,TDAP,TD (1 - DTAP,TDAP,TD (1 - Tdap) 12-31-1999 - [facility] Tdap) 12-31-1999 ([id number]) HEPATITIS C SCREENING HEPATITIS C SCREENING 1998 - [facility] 1998 ([id number]) HIV SCREENING HIV SCREENING 1998 - [facility] 1998 ([id number]) Social History Type Social History Description Date Locat ion Tobacco smoking status NHIS Unknown if ever smoked [facility] ([id number]) Sex Assigned At Not on file [facility] ([id number]) The following information is from the original [...] BE BASED ON THE PRIMARY CLINICAL RECORDS. [facility] provides no warranty or guarantee of the accuracy or completeness of information in this document. UNRECOGNIZED CONTENT PROVIDED BELOW FOR UNRECOGNIZED SECTION INFORMATION SOURCE DATE CREATED AUTHOR AUTHOR'S ORGANIZATIO N 09/23/2018 [facility] DATE CREATED AUTHOR AUTHOR'S ORGANIZATIO N 03/11/2020 [facility] ([place]) UNRECOGNIZED CONTENT PROVIDED BELOW FOR UNRECOGNIZED SECTION Source Comments In the event this information is protected by the Federal Confidentiality of Alcohol and Drug Abuse Patient Records regulations: The Federal rules restrict any use of the information to criminally investigate or prosecute any alcohol or drug abuse patient.[facility] the event this information is protected by the Federal Confidentiality of Alcohol and Drug Abuse Patient Records regulations: The Federal rules restrict any use of the information to criminally investigate or prosecute any alcohol or drug abuse patient.[facility]
--- OUTSIDE RECORDS SUMMARY | 2020-07-27 19:06 | XMS RPT_ITS | CCD ---
:1980 External Reference #:[id number] Author Organization [facility] Care Team Providers Name Role Phone WISWELL Unavailable Unavailable WISWELL Unavailable Unavailable WISWELL Unavailable Unavailable WISWELL Unavailable Unavailable WISWELL Unavailable Unavailable WISWELL Unavailable Unavailable Pcp Primary Care Provider Unavailable Yana Cruz Primary Care Provider Pcp Primary Care Provider Unavailable Garrett Jay Primary Care Provider Problems Category Problem Name Status Date Location Abdominal pain Pelvic and perineal pain Active 06-14-2018 - C [facility] (0000 0) Unclassified Unknown / UNK(Unknown) Active 06-14-2018 - [facility] (0000 0) Results Result Name Value Range Unit Interpretation Flag Date Location cur on 2020-03-11 CUR . Normal 03-11-2020 [facility] MICRO - Microbiology [facility] ([place]) ([id number]) PROCEDURE: Urine Culture [*1] SOURCE: Urine, Clean Catch BODY SITE: COLLECTED DATE/TIME: 03/09/20 16:14 EDT RECEIVED DATE/TIME: 03/10/2020 19:59 EDT START DATE/TIME: 03/10/2020 19:59 EDT FREE TEXT SOURCE: FINAL REPORTS Final Report [] Verified Date/Time/Personnel: 03/11/2020 13:56 EDT 10,000 - 50,000 cfu/ml Multiple bacterial morphotypes presen t. Probable Contamination. Suggest recollection if clinically indicated. Performing Locations *1: This test was performed at: [facility], [address] [place] [address], [address]- , U nited [facility] Comment: Performed By: #### CBC, ADIF F, ANEU, LIP, CMP, GFR #### [address] [address] ua on 2020-03-09 Color (U) Yellow Normal 03-09-2020 [facility] ([place]) ([address]) Comment: Performed By: #### UA, PREGU , UAMICAO #### [address] [address] Glucose (U) [Mass/Vol] Negative Negative mg/dL Normal 020 [facility] ([place]) ([address]) Comment: Performed By: #### UA, PREGU , UAMICAO #### [address] [address] Ketones Ql (U) Negative Negative Normal 03-09-2020 [facility] ([place]) ([address]68) Comment: Performed By: #### UA, PREGU , UAMICAO #### [address] [address] UA Appear Slightly Cloudy Clear Abnormal 03-09-2020 [facility] ([place]) ([address]) Comment: Performed By: #### UA, PREGU , UAMICAO #### [address] [address] UA Blood Small Negative Abnormal 03-09-2020 [facility] ([place]) ([address]) Comment: Performed By: #### UA, PREGU , UAMICAO #### [address] [address] UA Leuk Est Moderate Negative Abnormal 03-09-2020 [facility] ([place]) ([address]) Comment: Performed By: #### UA, PREGU , UAMICAO #### [address] [address] UA Nitrite Negative Negative Normal 03-09-2020 [facility] ([place]) ([address]) Comment: Performed By: #### UA, PREGU , UAMICAO #### [address] [address] UA pH 7.0 5.0 - 8.0 Normal 03-09-2020 [facility] ([place]) ([address]) Comment: Performed By: #### UA, PREGU , UAMICAO #### [address] [address] UA Protein Negative Negative Normal 03-09-2020 [facility] ([place]) ([address]) Comment: Performed By: #### UA, PREGU , UAMICAO #### [address] [address] UA Spec Grav 1.020 1.015-1.025 Normal 03-09-2020 [facility] ([place]) ([address]702) Comment: Performed By: #### UA, PREGU , UAMICAO #### [address] [address] UA Specimen Type Clean Catch Normal 03-09-2020 [facility] ([place]) ([address]) Comment: Performed By: #### UA, PREGU , UAMICAO #### [address] [address] UA Urobilinogen 0.2 0.2-1.0 E.U./dL Normal 03-09-2020 [facility] ([place]) (97464) Comment: Performed By: #### UA, PREGU , UAMICAO #### [address] [address] Urobilinogen Qn (U) Negative Negative Normal 03-09-2020 [facility] ([place]) (0000 0) Comment: Performed By: #### UA, PREGU , UAMICAO #### [address] [address] pregu on 2020-03-09 HCG ( test) Ql (U) Negative Normal [facility] ([place]) (0000 0) Comment: Performed By: #### UA, PREGU , UAMICAO #### [address] [address] test (u) int HCG not detected. 03-09-2020 [facility] ([place]) (0000 0) Comment: Performed By: #### UA, PREGU , UAMICAO #### [facility] [address] [place], [place] [address] lip on 2020-03-09 Lipase Level 69 73-393 U/L Low 03-09-2020 [facility] ([place]) (28728) Comment: Performed By: #### CBC, ADIF F, ANEU, LIP, CMP, GFR #### [facility] [address] [place], [place] [address] ct abd/pelvis w/ iv contrast only on 2020-03-09 CT ABD/PELVIS W/ ORIGINAL Normal 03-09-2020 [facility] IV CONTRAST ONLY CT ABD/PELVIS W/ IV CONTRAST ONLY [facility] ([place]) ([address]20) Clinical Statement: pain. Up per abdominal pain [...] Albumin [Mass/Vol] 3.5 3.5-5.0 G/dL Normal 03-09-2020 [facility] ([place]) ([address]39) Comment: Performed By: #### CBC, ADIF F, ANEU, LIP, CMP, GFR #### [address] [place], [place] [address] Albumin/Globulin [Mass ratio] 0.9 1.1-2.5 ratio Low 03-09-2020 [facility] ([place]) (68127) Comment: Performed By: #### CBC, ADIF F, ANEU, LIP, CMP, GFR #### [address] [address] ALP [Catalytic activity/Vol] 117 40-135 U/L Normal 0 03-09-2020 [facility] ([place]) (60791) Comment: Performed By: #### CBC, ADIF F, ANEU, LIP, CMP, GFR #### [address] [address] ALT [Catalytic activity/Vol] 29 10-35 U/L Normal 0 03-09-2020 [facility] ([place]) (0000 0) Comment: Performed By: #### CBC, ADIF F, ANEU, LIP, CMP, GFR #### [address] [address] AST [Catalytic activity/Vol] 11 10-40 U/L Normal 0 03-09-2020 [facility] ([place]) (0000 0) Comment: Performed By: #### CBC, ADIF F, ANEU, LIP, CMP, GFR #### [address] [address] Bili Total 0.3 0.2-1.0 mg/dL Normal 03-09-2020 [facility] ([place]) (39844) Comment: Result Comment: Use of this assay is not recommended for patients undergoing treatment with eltrombopag d ue to the potential for falsely elevated results. Performed By: #### CBC, ADIF F, ANEU, LIP, CMP, GFR #### [address] [address] Calcium [Mass/Vol] 8.8 8.4-10.2 mg/dL Normal 03-09-2020 [facility] ([place]) (0000 0) Comment: Performed By: #### CBC, ADIF F, ANEU, LIP, CMP, GFR #### [address] [address] Chloride [Moles/Vol] 101 98-107 mmol/L Normal 0 [facility] ([place]) (0000 0) Comment: Performed By: #### CBC, ADIF F, ANEU, LIP, CMP, GFR #### [address] [address] CO2 [Moles/Vol] 26 22-29 mmol/L Normal 03-09-2020 [facility] ([place]) (22840) Comment: Performed By: #### CBC, ADIF F, ANEU, LIP, CMP, GFR #### [address] [address] Creatinine [Mass/Vol] 0.68 0.55-1.02 mg/dL Normal 03-09-20 [facility] ([place]) (73494) Comment: Performed By: #### CBC, ADIF F, ANEU, LIP, CMP, GFR #### [address] [address] Electrolyte Balance 11.0 mEq/L Normal 03-09-2020 [facility]) (7[address]10) Comment: Performed By: #### CBC, ADIF F, ANEU, LIP, CMP, GFR #### [address] [address] Globulin (S) [Mass/Vol] 3.7 G/dL Normal 2019 [facility] ([place]) (35576) Comment: Performed By: #### CBC, ADIF F, ANEU, LIP, CMP, GFR #### [address] [address] Glucose [Mass/Vol] 92 70-105 mg/dL Normal 03-09-2020 [facility] ([place]) (31349) Comment: Performed By: #### CBC, ADIF F, ANEU, LIP, CMP, GFR #### [address] [address] Potassium [Moles/Vol] 4.2 3.5-5.1 mmol/L Normal 03-09-20 [facility] ([place]) (0000 0) Comment: Performed By: #### CBC, ADIF F, ANEU, LIP, CMP, GFR #### [address] [address] Protein [Mass/Vol] 7.2 6.4-8.2 G/dL Normal 03-09-2020 [facility] ([place]) (21378) Comment: Performed By: #### CBC, ADIF F, ANEU, LIP, CMP, GFR #### [address] [address] Sodium [Moles/Vol] 138 136-145 mmol/L Normal 03-09-2020 [facility] ([place]) (0000 0) Comment: Performed By: #### CBC, ADIF F, ANEU, LIP, CMP, GFR #### [address] [address] Urea nitrogen [Mass/Vol] 7 7-18 mg/dL Normal 03-09 [facility] ([place]) (0000 0) Comment: Performed By: #### CBC, ADIF F, ANEU, LIP, CMP, GFR #### [address] [address] Urea nitrogen/Creatinine [Mass 10 7-27 ratio Normal 03-09-2020 [facility] ratio] [facility] ([place]) ([address]) Comment: Performed By: #### CBC, ADIF F, ANEU, LIP, CMP, GFR #### [address] [address] cbc on 2020-03-09 Erythrocyte distribution 15.0 11.5-14.5 % High 03-09 [facility] width (RBC) [Ratio] ([place]) (08137) Comment: Performed By: #### CBC, ADIF F, ANEU, LIP, CMP, GFR #### [address] [address] Hematocrit (Bld) [Volume 38.5 37.0-47.0 % Normal 03-09 [facility] fraction] ([place]) (0000 0) Comment: Performed By: #### CBC, ADIF F, ANEU, LIP, CMP, GFR #### [address] [address] Hemoglobin (Bld) 13.1 12.0-16.0 G/dL Normal 03-09-2020 [facility] [Mass/Vol] [facility] ([place]) ([address]) Comment: Performed By: #### CBC, ADIF F, ANEU, LIP, CMP, GFR #### [address] [address] MCH (RBC) [Entitic mass] 29.2 27.0-31.2 pg Normal 03-09 [facility] ([place]) (0000 0) Comment: Performed By: #### CBC, ADIF F, ANEU, LIP, CMP, GFR #### [address] [address] MCHC (RBC) [Mass/Vol] 34.0 33.0-37.0 G/dL Normal 03-09-20 20 [facility] ([place]) (0000 0) Comment: Performed By: #### CBC, ADIF F, ANEU, LIP, CMP, GFR #### [address] [address] MCV (RBC) [Entitic vol] 85.9 80.0-94.0 fL Normal 2019 [facility] ([place]) (0000 0) Comment: Performed By: #### CBC, ADIF F, ANEU, LIP, CMP, GFR #### [address] [address] Platelet mean volume (Bld) 6.6 7.4-10.4 fL Low [facility] [Entitic vol] ([place]) ( [address]) Comment: Performed By: #### CBC, ADIF F, ANEU, LIP, CMP, GFR #### [address] [address] Platelets (Bld) [#/Vol] 368 130-400 10 3/mcL Normal 2019 [facility] ([place]) ([address]) Comment: Performed By: #### CBC, ADIF F, ANEU, LIP, CMP, GFR #### [address] [address] RBC (Bld) [#/Vol] 4.48 4.20-5.40 10 6/mcL Normal 03-09-2020 [facility] ([place]) (0000 0) Comment: Performed By: #### CBC, ADIF F, ANEU, LIP, CMP, GFR #### [address] [address] WBC (Bld) [#/Vol] 7.50 4.60-10.80 10 3/mcL Normal 03-09-2020 [facility] ([place]) (89405) Comment: Performed By: #### CBC, ADIF F, ANEU, LIP, CMP, GFR #### [address] [address] .urinalysis microscopic (ao) on 2020-03-09 RBC (U) [#/Vol] 0-5 None Seen Abnormal 03-09-2020 [facility] ([place]) ([address]16) Comment: Performed By: #### UA, PREGU , UAMICAO #### [address] [address] UA Bacteria 1+ /hpf Abnormal 03-09-2020 [facility] ([place]) (92690) Comment: Performed By: #### UA, PREGU , UAMICAO #### [address] [address] UA Squam Epithelial 5-10 None Seen Abnormal 03-09-2020 [facility] ([place]) (0000 0) Comment: Performed By: #### UA, PREGU , UAMICAO #### [address] [address] UA WBC 5-10 None Seen Abnormal 03-09-2020 [facility] ([place]) ([address]) Comment: Performed By: #### UA, PREGU , UAMICAO #### [address] [address] .neuabs on Neutrophils (Bld) 5.80 2.85-6.16 10 3/mcL Normal 03-09-2020 [facility] [#/Vol] [facility] ([place]) ([address]) Comment: Performed By: #### CBC, ADIF F, ANEU, LIP, CMP, GFR #### [address] [address] .gfr on 2020-03-09 GFR 117 ml/min/1.73sqm Normal 05-2 -2019 [facility] ([place]) (0000 0) Comment: Result Comment: GFR Population mean for Afri can [place]at[place], Non- Americans Ages 20-29 = 116 mL/min/1.73 [...] ADIF F, ANEU, LIP, CMP, GFR #### [address] [address] GFR Non- 96 ml/min/1.73sqm Normal 03-09-2020 [facility] ([place]) (11545) Comment: Result Comment: GFR Population mean for Afri can Qat[place], Non- Americans Ages 20-29 = 116 mL/min/1.73 [...] ADIF F, ANEU, LIP, CMP, GFR #### [address] [address] .auto diff on 03-09 Ammonia (P) [Mass/Vol] 0.60 0.15-1.00 10 3/mcL Normal 03-09- 020 [facility] ([place]) ([address]26) Comment: Performed By: #### CBC, ADIF F, ANEU, LIP, CMP, GFR #### [address] [address] Basophils (Bld) 0.00 0.00-0.19 10 3/mcL Normal 03-09-2020 [facility] [#/Vol] [facility] ([place]) ([address]) Comment: Performed By: #### CBC, ADIF F, ANEU, LIP, CMP, GFR #### [address] [address] Basophils/100 WBC (Bld) 0.6 0.0-2.5 % Normal 2019 [facility] ([place]) (0000 0) Comment: Performed By: #### CBC, ADIF F, ANEU, LIP, CMP, GFR #### [address] [address] Eosinophils (Bld) 0.00 0.00-0.40 10 3/mcL Normal 03-09-2020 [facility] [#/Vol] [facility] ([place]) ([address]) Comment: Performed By: #### CBC, ADIF F, ANEU, LIP, CMP, GFR #### [address] [address] Eosinophils/100 WBC (Bld) 0.5 0.0-7.0 % Normal 02-13 [facility] ([place]) (0000 0) Comment: Performed By: #### CBC, ADIF F, ANEU, LIP, CMP, GFR #### [address] [address] Lymphocytes (Bld) 1.00 0.77-3.85 10 3/mcL Normal 03-09-2020 [facility] [#/Vol] [facility] ([place]) ([address]888) Comment: Performed By: #### CBC, ADIF F, ANEU, LIP, CMP, GFR #### [address] [address] Lymphocytes/100 WBC (Bld) 13.5 10.0-50.0 % Normal 02-13 [facility] ([place]) ([address]321) Comment: Performed By: #### CBC, ADIF F, ANEU, LIP, CMP, GFR #### [address] [address] Monocytes/100 WBC (Bld) 8.1 1.7-13.0 % Normal 2019 [facility] ([place]) (0000 0) Comment: Performed By: #### CBC, ADIF F, ANEU, LIP, CMP, GFR #### [address] [address] Neutrophils/100 WBC (Bld) 77.3 37.0-80.0 % Normal 02-13 [facility] ([place]) (70361) Comment: Performed By: #### CBC, ADIF F, ANEU, LIP, CMP, GFR #### [address] [address] progress on 2018-07 Protein HNO ID: [id number]: Sander Malik 08-09-2018 [facility] WiswellService: (none)Author Type: Clinic PhysicianType: Progress NotesFiled: [place] 08/09/2018 1:00 PMNote Text:Danna Tucker ([id number]) Abdoulaye is a 37 year old female [...] No nausea, vomiting, diarrhea, or constipation.Bladder: +Bladder pain.Ultrasound Manager: +Spotting.Expanded ROS: N/AAllergies and current medication updated:YesEXAM: [...] Normal 08-09-2018 Clestephanie and (KATHERINE) ------DANNA RUIZ ([id number]) 1980 FDat e Time Provider Zflwwbvnjb17/26/18 9:45 AM SANDER CHAIREZ During your [place] visit today, we recorded the following information about you: Blood pressure Weight Last Period (16527) 170/96 83.9 kg 05/13/18ced Chairez MD 08/09/2018 [...] nausea, v omiting, diarrhea, or constipation.Bladder: +Bladder pain.Ultrasound Manager: +Spotting.Expanded ROS: N/AA llergies and current medication [...] uterine bleeding (AUB) [N93.9]Order(s):PELVIC US WH I [[id number]] Order #: [id number]: 1 FUTURE PELVIC US WHI [4120707] Order #: [id number]: 1 FEMALE PELVIS TRANSVAG [4652870] Order #: [id number] FUTUREPrescriptions as of 08/09/2018 Sig: MIRABE GRON [...] of Service: EST PATIENT VISIT LEVEL 3 [30182]Disposition: Return i n about 1 week (around 08/16/2018) for Mirena placement with SW.Follow-up and Disposition History Jose rdedEncounter Number: [id number] Status:Closed by SANDER CHAIREZ MD on 08/09/18 progress on 2018-06 Protein HNO ID: [id number]: Sander Malik 07-03-2018 [facility] Al: (none)Author Type: Clinic PhysicianType: Progress NotesFiled: [place] 07/03/2018 5:18 PMNote Text:Danna Tucker ([id number]) Abdoulaye is a 37 year old female [...] Normal 07-03-2018 [place] [facility] (WOOB) ------DANNA RUIZ ([id number]) 1980 [facility] e Time Provider Department07/03/18 4:00 PM SANDER [...] pain [R39.89]Order(s):TSH BLD [SQ TSH] Order #: [id number] FUTURE PROLACTIN BLD [SQPROL] Order #: [id number] FUTUREPrescriptio ns as of 07/03/2018 Sig: LISDEXAMFETAMINE [...] of Service: EST PATIENT VISIT LEVEL 3 [51120]Follow- up and Disposition History RecordedEncounter Number: [id number] Status:Closed by SANDER CHAIREZ MD on 07/03/18 progress on 2018-06 Protein HNO ID: [id number]: Sander Malik 06-25-2018 [facility] [place] ChairezService: (none)Author Type: Clinic PhysicianType: Progress NotesFiled: [place] 06/25/2018 5:29 PMNote Text:Danna Tucker ([id number]) Abdoulaye is a 37 year old female [...] massesPELVIC: external genitalia normal, normal Bartholin's glands, urethra,Murrieta's glands, no vulvar lesions, no cervical lesions, [...] Normal 06-25-2018 [place] [facility] (WOOB) ------DANNA RUIZ ([id number]) 1980 [facility] Department06/25/18 3:45 PM [...] external genitalia normal, normal Bartholin's glands, urethra, Murrieta'sglands, no vulvar les ions, no cervical lesions, [...] [N93.9]Order(s):CONSUL T TO UROLOGY [9041] Order #: [id number]: 1 ENDOMETRIAL BIOPSY [3871686] Order #: [id number] SURGICAL PATHOLOGY [9652870] Order #: [id number] as of 06/25/2018 Sig: LISDEXAMFETA MINE 40 [...] of Service: EST PATIENT VISIT LEVEL 4 [12255]Disposition: Return i n about 1 week (around 07/02/2018).Follow-up and Disposition History RecordedEncounter Number: [id number] Status:Closed by SANDER CHAIREZ MD on 06/25/18 [facility]2018 [place] ([place]OOB) ------DANNA RUIZ [facility] ([id number]) 1980 [facility] e Time Provider Department06/18/18 SANDER CHAIREZ During your visit [place] today, we recorded the follo wing information about you:Sander Chairez MD 06/18/2018 1:48 PM SignedCalled ([id number]) patient about test results, and to see [...] Eosinophils/100 WBC Auto 0.4 % Normal 06-14 [facility] (Bld) [place] (39992) Erythrocyte distribution 14.2 11.5-15.0 % Normal 06-14 [facility] width Auto Ratio (RBC) [place] (56828) Hematocrit Auto Volume 39.6 36.0-46.0 % Normal 018 [facility] Fraction (Bld) [facility] (16930) Hemoglobin mass conc (Bld) 13.1 11.5-15.5 g/dL Normal [facility] (14498) Lymphocytes/100 WBC Auto 21.3 % Normal 06-14 [facility] (Bld) [place] (86676) MCH Auto Entitic mass 29.1 26.0-34.0 pg Normal 06-14-20 18 [facility] (RBC) [place] (57858) MCHC Auto mass conc (RBC) 33.1 30.5-36.0 g/dL Normal 05-17 [facility] (33894) MCV Auto Entitic volume 88.0 80.0-100.0 fL Normal 06-14 [facility] (RBC) [place] (51611) Platelet mean volume Auto 8.6 9.0-12.7 fL Low 05-17 [facility] Entitic volume (Bld) [place] (34148) Comment: Result Comment: Test perform ed at: [facility], [address] [place] [address]., [place], [place] [address]. RBC Auto #/vol (Bld) 4.50 3.90-5.20 m/uL Normal 8 [facility] (55845) WBC Auto #/vol (Bld) 11.90 3.70-11.00 k/uL High 06-14-20 18 [facility] (22398) Abel Abs Baso 0.04 <0.11 k/uL Normal 06-14-2018 [facility] (69178) [place] Abs Eos 0.05 <0.46 k/uL Normal 06-14-2018 [facility] (19083) [place] Abs Lymp 2.54 1.00-4.00 k/uL Normal 06-14-2018 [facility] (49371) Abel Abs Curry 0.56 <0.87 k/uL Normal 06-14-2018 [facility] (46250) [place] Abs Neut 8.71 1.45-7.50 k/uL High 06-14-2018 [facility] (16750) [place] Baso% 0.3 % Normal 06-14-2018 [facility] (53606) Abel Curry% 4.7 % Normal 06-14-2018 [facility] (13310) [place] Neut% 73.3 % Normal 06-14-2018 [facility] (74265) Abel Platelet Cnt 385 150-400 k/uL Normal 8 [facility] (40184) us female pelvis transvag on 2018-06-14 US FEMALE * * *Final Report* * *DATE OF Normal 06-14-2018 [facility] PELVIS TRANSVAG EXAM: Jun 14 2018 2:46PM [facility] 1060 - US FEMALE PELVIS TRANSVAG (60183) / REASON: Pelvic and perineal pain * [...] then a follow-up is suggested in 2 months.Meat Cutting Teacher: PSCB Transcribe Date/Time: Jun 15 2018 8:55ADictated by : Viry SON examination was interpreted and the report reviewed and electronically signed by: JOB JANG DO on Jun 15 2018 4:37PM [id number] urine culture on 01-06-31 Bacteria Sp. Request/Comment: - Critically 2017 [place] identified Cx Specimen received in abnormal Clinic Nom (U) preservativeCulture [place] Result - 50,000 - (0 0000) <100,000 CFU/ml Lactose positive gram negative bacilli --> ABNORMAL ALERT Insignificant colony count. No further workup. --> ABNORMAL ALERT >=100,000 CFU/ml Normal urogenital helen Comment: Performed By: #### URCUL ### #[facility] [address] [place], [place] [id number]- [phone] progress on 2018-05 Protein mass HNO ID: [id number]: Normal 0 06-14-2018 [facility] va [place] ([facility]) Janethervice: Shaggy ([id number]) (none)Author Type: SonographerType: Progress NotesFiled: 06/14/2018 2:47 PMNote Text: Radiology Service Progress NotePATIENT NAME: Danna LinoRN: [id number] OF SERVICE: June 14, 2018TIME: 2:46 PMPATIENT IDENTITY VERIFICATION COMPLETED USING TWO (2) METHODS: Patientconfirmed name verbally and Date of .PATIENT GENDER DATA: Female. status: : NoBreastfeeding status: N/APATIENT RELEVANT IMPLANT DATA REVIEWED: Not ApplicableRADIOLOGY DEPARTMENT: UltrasoundPERIPHERAL IV DATA: Not applicableSIGNED BY: ANURADHA BARR [facility] RVTAugust 2017 2:46 PM Protein mass HNO ID: [id number]: Normal 0 06-14-2018 [facility] conc Sander ChairezService: [place] ([id number]) (none)Author Type: PhysicianType: Progress NotesFiled: 06/14/2018 1:11 [...] Chlamydia Amplif Negative for Chlamydia Normal 06-14-2018 [facility] trachomatis by [place] (63349) amplification. Comment: Performed By: #### GCCT #### [facility] [address] [place], [place] [phone]- [phone] GC Amplification Negative for Neisseria Normal 06-14-2018 [facility] gonorrhoeae by [place] (25299) amplification. Comment: Performed By: #### GCCT #### [facility] [place], [place] [phone]- [phone] GC/Chlam Amp Source Cervix Normal 06-14-2018 [facility] (63472) Comment: Performed By: #### GCCT #### [facility] [address] [place], [place] [phone]- [phone] cnov on 2018-06-14 [facility] Office Visit Normal 06-14-2018 [place] [facility] (WOOB) ------DANNA RUIZ Soo [facility] ([id number]) 1980 FDat e Time Provider Department06/14/18 9:45 AM SANDER CHAIREZ During your [place] and visit today, we recorded the following information about you: Temperature Blood pressure Weight Last (59865 ) Period 99.3 degrees 170/98 8 2.6 [...] and was then treated for aTOA at [facility] t time.Hx of imaging:Pelvic US 06/10/18 showed [...] 06/14/2018(No Known Al lergies)Date Reviewed: 06/14/2018Reviewed by: Kait Stark LPN - Fully AssessedReason for Vis it: Pelvic Pain [282] Cmt: pelvic pressure, dyspareuniaReason For Visit History RecordedPrimary Visi t Diagnosis:Pelvic pain in female [R10.2] Other Visit Diagnoses:Urinary frequency [R35.0] Fever, uns pecified fever cause [R50.9] Abnormal uterine bleeding (AUB) [N93.9] Nausea and vomiting, intract ability of vomiting not specified, unspecified vomiting type [R11.2] Alternating constipation and diarrhea [R19.8]Order(s):US FEMALE PELVIS TRANSVAG [2113313] Order #: [id number] FUTURE UA DIP, URINE (POC) [1405328] Order #: [id number]. #:[id number] AB URINE CULTURE [SQURCUL] Order #: [id number] GC/CHLAMYDIA DNA DET [SQGCCAMP] Order #: [id number] BACT/JENY VAG GRAM STAIN [SQBVCNSM] Order #: [id number] FUTURE ABEL CBC AND DIFF [SQWCBC DF] Order #: [id number] FUTUREPrescriptions as of 06/14/2018 Sig: LISDEXAMFETAMINE 40 [...] exam.Follow-up and Disposition History Jose rdedEncounter Number: [id number] Status:Closed by SANDER CHAIREZ MD on 06/14/18 bact/cand vag grm st on 2018-06-14 Bact/Cand Vag Grm Sp. Request/Comment: - Swab Norm al 06-14-2018 [facility] [place] ([id number]) Smear Result - BACTERIAL VAG INOSIS RESULT: Stain results indicate mixed morphotypes consistent with transition from normal vaginal helen. No Polymorphonuclear Leukocytes Rare Epithelial cells No Yeast observed Comment: Performed By: #### BVCNSM ## ##[facility] [id number] [place], [place] [phone] No panel information on 2007-09-26 CONVERTED ELECTRONIC ROSA M JONES M.D., PATHOLOGIST 09-26-2007 [facility] SIGNATURE (Electronic signature on file) ([id number]) Final Signed Out: 09/26/2007 16:19 CONVERTED FINAL ENDOMETRIUM, CURETTAGE - CHO RIONIC VILLI AND DECIDUA, CONSISTENT WITH 09-26-2007 [facility] DIAGNOSIS INTRAUTERINE . ([id number]) CONVERTED ORDERING Ordering Provider: MILLI 09-26-2007 [facility] PROVIDER MARGARETTE DIALLO ( [id number]) Vital Signs Vital Sign Description Value / Unit Date Location The following section is limited to 5 en tries per type and includes entries from the following time range: 20180625 - [id number] 1. Body mass index (BMI) [Ratio] [id number] Encounters Date Type Reason Provider [facility] [place] (0000 0) [facility]-03-2018 [facility] [place] (0000 0) 06-25-2018 [facility] [place] (0000 0) 06[facility]14-2018 [facility] [place] (0000 0) 06-14-2018 [facility] [place] (0000 0) 09-25-2007 [facility] 09-25-2007 procedure [facility] 09-25-2007 - Results Only [facility] Pfeiffer [facility] 09-25-2007 [facility] Procedures Procedure Name Date Provider Location CONVERTED SURGICAL 09-25-2007 [facility] 09-25-2007 [facility] ([id number]) Plan of Treatment Plan Description Date Location INFLUENZA (#1) INFLUENZA (#1) 2020 - [facility] 06-15-2020 ([id number]) HPV TESTING HPV TESTING 2010 - [facility] 2010 ([id number]) PAP TESTING PAP TESTING 2001 - [facility] 2001 ([id number]) DTAP,TDAP,TD (1 - DTAP,TDAP,TD (1 - Tdap) 12-31-1999 - [facility] Tdap) 12-31-1999 ([id number]) HEPATITIS C SCREENING HEPATITIS C SCREENING 1998 - [facility] 1998 ([id number]) HIV SCREENING HIV SCREENING 1998 - [facility] 1998 ([id number]) Social History Type Social History Description Date Locat ion Tobacco smoking status NHIS Unknown if ever smoked [facility] ([id number]) Sex Assigned At Not on file [facility] ([id number]) The following information is from the original [...] BE BASED ON THE PRIMARY CLINICAL RECORDS. [facility] provides no warranty or guarantee of the accuracy or completeness of information in this document. UNRECOGNIZED CONTENT PROVIDED BELOW FOR UNRECOGNIZED SECTION INFORMATION SOURCE DATE CREATED AUTHOR AUTHOR'S ORGANIZATIO N 09/23/2018 [facility] DATE CREATED AUTHOR AUTHOR'S ORGANIZATIO N 03/11/2020 [facility] ([place]) UNRECOGNIZED CONTENT PROVIDED BELOW FOR UNRECOGNIZED SECTION Source Comments In the event this information is protected by the Federal Confidentiality of Alcohol and Drug Abuse Patient Records regulations: The Federal rules restrict any use of the information to criminally investigate or prosecute any alcohol or drug abuse patient.[facility] the event this information is protected by the Federal Confidentiality of Alcohol and Drug Abuse Patient Records regulations: The Federal rules restrict any use of the information to criminally investigate or prosecute any alcohol or drug abuse patient.[facility]
--- OUTSIDE RECORDS SUMMARY | 2020-07-27 19:06 | XMS RPT_ITS | CCD ---
:1980 External Reference #:[id number] Author Organization [facility] Care Team Providers Name Role Phone WISWELL Unavailable Unavailable WISWELL Unavailable Unavailable WISWELL Unavailable Unavailable WISWELL Unavailable Unavailable WISWELL Unavailable Unavailable WISWELL Unavailable Unavailable Pcp Primary Care Provider Unavailable Yana Cruz Primary Care Provider Pcp Primary Care Provider Unavailable Garrett Jay Primary Care Provider Problems Category Problem Name Status Date Location Abdominal pain Pelvic and perineal pain Active 06-14-2018 - [facility] (0000 0) Unclassified Unknown / UNK(Unknown) Active 06-14-2018 - [facility] (0000 0) Results Result Name Value Range Unit Interpretation Flag Date Location cur on 2020-03-11 CUR . Normal 03-11-2020 [facility] MICRO - Microbiology [facility] ([place]) ([id number]) PROCEDURE: Urine Culture [*1] SOURCE: Urine, Clean Catch BODY SITE: COLLECTED DATE/TIME: 03/09/20 16:14 EDT RECEIVED DATE/TIME: 03/10/2020 19:59 EDT START DATE/TIME: 03/10/2020 19:59 EDT FREE TEXT SOURCE: FINAL REPORTS Final Report [] Verified Date/Time/Personnel: 03/11/2020 13:56 EDT 10,000 - 50,000 cfu/ml Multiple bacterial morphotypes presen t. Probable Contamination. Suggest recollection if clinically indicated. Performing Locations *1: This test was performed at: [facility], [address] [place] [address], [address]- , U nited [facility] Comment: Performed By: #### CBC, ADIF F, ANEU, LIP, CMP, GFR #### [address] [address] ua on 2020-03-09 Color (U) Yellow Normal 03-09-2020 [facility] ([place]) ([address]562) Comment: Performed By: #### UA, PREGU , UAMICAO #### [address] [address] Glucose (U) [Mass/Vol] Negative Negative mg/dL Normal 020 [facility] ([place]) ([address]172) Comment: Performed By: #### UA, PREGU , UAMICAO #### [address] [address] Ketones Ql (U) Negative Negative Normal 03-09-2020 [facility] ([place]) (87371) Comment: Performed By: #### UA, PREGU , UAMICAO #### [address] [address] UA Appear Slightly Cloudy Clear Abnormal 03-09-2020 [facility] ([place]) (14343) Comment: Performed By: #### UA, PREGU , UAMICAO #### [address] [address] UA Blood Small Negative Abnormal 03-09-2020 [facility] ([place]) (48712) Comment: Performed By: #### UA, PREGU , UAMICAO #### [address] [address] UA Leuk Est Moderate Negative Abnormal 03-09-2020 [facility] ([place]) (51963) Comment: Performed By: #### UA, PREGU , UAMICAO #### [address] [address] UA Nitrite Negative Negative Normal 03-09-2020 [facility] ([place]) ([address]29) Comment: Performed By: #### UA, PREGU , UAMICAO #### [address] [address] UA pH 7.0 5.0 - 8.0 Normal 03-09-2020 [facility] ([place]) (77801) Comment: Performed By: #### UA, PREGU , UAMICAO #### [address] [address] UA Protein Negative Negative Normal 03-09-2020 [facility] ([place]) (18596) Comment: Performed By: #### UA, PREGU , UAMICAO #### [address] [address] UA Spec Grav 1.020 1.015-1.025 Normal 03-09-2020 [facility] ([place]) (18346) Comment: Performed By: #### UA, PREGU , UAMICAO #### [address] [address] UA Specimen Type Clean Catch Normal 03-09-2020 [facility] ([place]) (82726) Comment: Performed By: #### UA, PREGU , UAMICAO #### [address] [address] UA Urobilinogen 0.2 0.2-1.0 E.U./dL Normal 03-09-2020 [facility] ([place]) (60453) Comment: Performed By: #### UA, PREGU , UAMICAO #### [address] [address] Urobilinogen Qn (U) Negative Negative Normal 03-09-2020 [facility] ([place]) (0000 0) Comment: Performed By: #### UA, PREGU , UAMICAO #### [address] [address] pregu on 2020-03-09 HCG ( test) Ql (U) Negative Normal [facility] ([place]) (0000 0) Comment: Performed By: #### UA, PREGU , UAMICAO #### [address] [address] test (u) int HCG not detected. 03-09-2020 [facility] ([place]) (0000 0) Comment: Performed By: #### UA, PREGU , UAMICAO #### [facility] [address] [place], [place] [address] lip on 2020-03-09 Lipase Level 69 73-393 U/L Low 03-09-2020 [facility] ([place]) ([address]407) Comment: Performed By: #### CBC, ADIF F, ANEU, LIP, CMP, GFR #### [facility] [address] [place], [place] [address] ct abd/pelvis w/ iv contrast only on 2020-03-09 CT ABD/PELVIS W/ ORIGINAL Normal 03-09-2020 [facility] IV CONTRAST ONLY CT ABD/PELVIS W/ IV CONTRAST ONLY [facility] ([place]) (78348) Clinical Statement: pain. Up per abdominal pain [...] Albumin [Mass/Vol] 3.5 3.5-5.0 G/dL Normal 03-09-2020 [facility] ([place]) (31126) Comment: Performed By: #### CBC, ADIF F, ANEU, LIP, CMP, GFR #### [address] [place], [place] [address] Albumin/Globulin [Mass ratio] 0.9 1.1-2.5 ratio Low 03-09-2020 [facility] ([place]) (87297) Comment: Performed By: #### CBC, ADIF F, ANEU, LIP, CMP, GFR #### [address] [address] ALP [Catalytic activity/Vol] 117 40-135 U/L Normal 0 03-09-2020 [facility] ([place]) (53900) Comment: Performed By: #### CBC, ADIF F, ANEU, LIP, CMP, GFR #### [address] [address] ALT [Catalytic activity/Vol] 29 10-35 U/L Normal 0 03-09-2020 [facility] ([place]) (0000 0) Comment: Performed By: #### CBC, ADIF F, ANEU, LIP, CMP, GFR #### [address] [address] AST [Catalytic activity/Vol] 11 10-40 U/L Normal 0 03-09-2020 [facility] ([place]) (0000 0) Comment: Performed By: #### CBC, ADIF F, ANEU, LIP, CMP, GFR #### [address] [address] Bili Total 0.3 0.2-1.0 mg/dL Normal 03-09-2020 [facility] ([place]) (34075) Comment: Result Comment: Use of this assay is not recommended for patients undergoing treatment with eltrombopag d ue to the potential for falsely elevated results. Performed By: #### CBC, ADIF F, ANEU, LIP, CMP, GFR #### [address] [address] Calcium [Mass/Vol] 8.8 8.4-10.2 mg/dL Normal 03-09-2020 [facility] ([place]) (0000 0) Comment: Performed By: #### CBC, ADIF F, ANEU, LIP, CMP, GFR #### [address] [address] Chloride [Moles/Vol] 101 98-107 mmol/L Normal 0 [facility] ([place]) (0000 0) Comment: Performed By: #### CBC, ADIF F, ANEU, LIP, CMP, GFR #### [address] [address] CO2 [Moles/Vol] 26 22-29 mmol/L Normal 03-09-2020 [facility] ([place]) (83941) Comment: Performed By: #### CBC, ADIF F, ANEU, LIP, CMP, GFR #### [address] [address] Creatinine [Mass/Vol] 0.68 0.55-1.02 mg/dL Normal 03-09-20 [facility] ([place]) (49635) Comment: Performed By: #### CBC, ADIF F, ANEU, LIP, CMP, GFR #### [address] [address] Electrolyte Balance 11.0 mEq/L Normal 03-09-2020 [facility]) (94961) Comment: Performed By: #### CBC, ADIF F, ANEU, LIP, CMP, GFR #### [address] [address] Globulin (S) [Mass/Vol] 3.7 G/dL Normal 2019 [facility] ([place]) (00007) Comment: Performed By: #### CBC, ADIF F, ANEU, LIP, CMP, GFR #### [address] [address] Glucose [Mass/Vol] 92 70-105 mg/dL Normal 03-09-2020 [facility] ([place]) (84611) Comment: Performed By: #### CBC, ADIF F, ANEU, LIP, CMP, GFR #### [address] [address] Potassium [Moles/Vol] 4.2 3.5-5.1 mmol/L Normal 03-09-20 [facility] ([place]) (0000 0) Comment: Performed By: #### CBC, ADIF F, ANEU, LIP, CMP, GFR #### [address] [address] Protein [Mass/Vol] 7.2 6.4-8.2 G/dL Normal 03-09-2020 [facility] ([place]) (01272) Comment: Performed By: #### CBC, ADIF F, ANEU, LIP, CMP, GFR #### [address] [address] Sodium [Moles/Vol] 138 136-145 mmol/L Normal 03-09-2020 [facility] ([place]) (0000 0) Comment: Performed By: #### CBC, ADIF F, ANEU, LIP, CMP, GFR #### [address] [address] Urea nitrogen [Mass/Vol] 7 7-18 mg/dL Normal 03-09 [facility] ([place]) (0000 0) Comment: Performed By: #### CBC, ADIF F, ANEU, LIP, CMP, GFR #### [address] [address] Urea nitrogen/Creatinine [Mass 10 7-27 ratio Normal 03-09-2020 [facility] ratio] [facility] ([place]) (27953) Comment: Performed By: #### CBC, ADIF F, ANEU, LIP, CMP, GFR #### [address] [address] cbc on 2020-03-09 Erythrocyte distribution 15.0 11.5-14.5 % High 03-09 [facility] width (RBC) [Ratio] ([place]) (72139) Comment: Performed By: #### CBC, ADIF F, ANEU, LIP, CMP, GFR #### [address] [address] Hematocrit (Bld) [Volume 38.5 37.0-47.0 % Normal 03-09 [facility] fraction] ([place]) (0000 0) Comment: Performed By: #### CBC, ADIF F, ANEU, LIP, CMP, GFR #### [address] [address] Hemoglobin (Bld) 13.1 12.0-16.0 G/dL Normal 03-09-2020 [facility] [Mass/Vol] [facility] ([place]) (76479) Comment: Performed By: #### CBC, ADIF F, ANEU, LIP, CMP, GFR #### [address] [address] MCH (RBC) [Entitic mass] 29.2 27.0-31.2 pg Normal 03-09 [facility] ([place]) (0000 0) Comment: Performed By: #### CBC, ADIF F, ANEU, LIP, CMP, GFR #### [address] [address] MCHC (RBC) [Mass/Vol] 34.0 33.0-37.0 G/dL Normal 03-09-20 20 [facility] ([place]) (0000 0) Comment: Performed By: #### CBC, ADIF F, ANEU, LIP, CMP, GFR #### [address] [address] MCV (RBC) [Entitic vol] 85.9 80.0-94.0 fL Normal 2019 [facility] ([place]) (0000 0) Comment: Performed By: #### CBC, ADIF F, ANEU, LIP, CMP, GFR #### [address] [address] Platelet mean volume (Bld) 6.6 7.4-10.4 fL Low [facility] [Entitic vol] ([place]) ( [address]) Comment: Performed By: #### CBC, ADIF F, ANEU, LIP, CMP, GFR #### [address] [address] Platelets (Bld) [#/Vol] 368 130-400 10 3/mcL Normal 2019 [facility] ([place]) (44278) Comment: Performed By: #### CBC, ADIF F, ANEU, LIP, CMP, GFR #### [address] [address] RBC (Bld) [#/Vol] 4.48 4.20-5.40 10 6/mcL Normal 03-09-2020 [facility] ([place]) (0000 0) Comment: Performed By: #### CBC, ADIF F, ANEU, LIP, CMP, GFR #### [address] [address] WBC (Bld) [#/Vol] 7.50 4.60-10.80 10 3/mcL Normal 03-09-2020 [facility] ([place]) (75179) Comment: Performed By: #### CBC, ADIF F, ANEU, LIP, CMP, GFR #### [address] [address] .urinalysis microscopic (ao) on 2020-03-09 RBC (U) [#/Vol] 0-5 None Seen Abnormal 03-09-2020 [facility] ([place]) (70689) Comment: Performed By: #### UA, PREGU , UAMICAO #### [address] [address] UA Bacteria 1+ /hpf Abnormal 03-09-2020 [facility] ([place]) (95089) Comment: Performed By: #### UA, PREGU , UAMICAO #### [address] [address] UA Squam Epithelial 5-10 None Seen Abnormal 03-09-2020 [facility] ([place]) (0000 0) Comment: Performed By: #### UA, PREGU , UAMICAO #### [address] [address] UA WBC 5-10 None Seen Abnormal 03-09-2020 [facility] ([place]) (51726) Comment: Performed By: #### UA, PREGU , UAMICAO #### [address] [address] .neuabs on Neutrophils (Bld) 5.80 2.85-6.16 10 3/mcL Normal 03-09-2020 [facility] [#/Vol] [facility] ([place]) ([address]328) Comment: Performed By: #### CBC, ADIF F, ANEU, LIP, CMP, GFR #### [address] [address] .gfr on 2020-03-09 GFR 117 ml/min/1.73sqm Normal 05-2 -2019 [facility] ([place]) (0000 0) Comment: Result Comment: GFR Population mean for Afri can Palestinian, Non- Americans Ages 20-29 = 116 mL/min/1.73 [...] ADIF F, ANEU, LIP, CMP, GFR #### [address] [address] GFR Non- 96 ml/min/1.73sqm Normal 03-09-2020 [facility] ([place]) (55104) Comment: Result Comment: GFR Population mean for Afri can Palestinian, Non- Americans Ages 20-29 = 116 mL/min/1.73 [...] ADIF F, ANEU, LIP, CMP, GFR #### [address] [address] .auto diff on 03-09 Ammonia (P) [Mass/Vol] 0.60 0.15-1.00 10 3/mcL Normal 03-09- 020 [facility] ([place]) (05165) Comment: Performed By: #### CBC, ADIF F, ANEU, LIP, CMP, GFR #### [address] [address] Basophils (Bld) 0.00 0.00-0.19 10 3/mcL Normal 03-09-2020 [facility] [#/Vol] [facility] ([place]) (97757) Comment: Performed By: #### CBC, ADIF F, ANEU, LIP, CMP, GFR #### [address] [address] Basophils/100 WBC (Bld) 0.6 0.0-2.5 % Normal 2019 [facility] ([place]) (0000 0) Comment: Performed By: #### CBC, ADIF F, ANEU, LIP, CMP, GFR #### [address] [address] Eosinophils (Bld) 0.00 0.00-0.40 10 3/mcL Normal 03-09-2020 [facility] [#/Vol] [facility] ([place]) ([address]18) Comment: Performed By: #### CBC, ADIF F, ANEU, LIP, CMP, GFR #### [address] [address] Eosinophils/100 WBC (Bld) 0.5 0.0-7.0 % Normal 02-13 [facility] ([place]) (0000 0) Comment: Performed By: #### CBC, ADIF F, ANEU, LIP, CMP, GFR #### [address] [address] Lymphocytes (Bld) 1.00 0.77-3.85 10 3/mcL Normal 03-09-2020 [facility] [#/Vol] [facility] ([place]) (56619) Comment: Performed By: #### CBC, ADIF F, ANEU, LIP, CMP, GFR #### [address] [address] Lymphocytes/100 WBC (Bld) 13.5 10.0-50.0 % Normal 02-13 [facility] ([place]) (34619) Comment: Performed By: #### CBC, ADIF F, ANEU, LIP, CMP, GFR #### [address] [address] Monocytes/100 WBC (Bld) 8.1 1.7-13.0 % Normal 2019 [facility] ([place]) (0000 0) Comment: Performed By: #### CBC, ADIF F, ANEU, LIP, CMP, GFR #### [address] [address] Neutrophils/100 WBC (Bld) 77.3 37.0-80.0 % Normal 02-13 [facility] ([place]) (08476) Comment: Performed By: #### CBC, ADIF F, ANEU, LIP, CMP, GFR #### [address] [address] progress on 2018-07 Protein HNO ID: [id number]: Sander Malik 08-09-2018 [facility] WiswellService: (none)Author Type: Clinic PhysicianType: Progress NotesFiled: [place] 08/09/2018 1:00 PMNote Text:Danna Tucker ([id number]) Abdoulaye is a 37 year old female [...] Number of children: 2Occupational 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 History Main Topics Smoking status: Current [...] No nausea, vomiting, diarrhea, or constipation.Bladder: +Bladder pain.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.Expanded ROS: N/AAllergies and current medication updated:YesEXAM: [...] Normal 08-09-2018 Clestephanie and (KATHERINE) ------DANNA RUIZ ([id number]) 1980 FDat e Time Provider Ylniqmmbfe46/26/18 9:45 AM SANDER CHAIREZ During your [place] visit today, we recorded the following information about you: Blood pressure Weight Last Period (31849) 170/96 83.9 kg 05/13/18ced Chairez MD 08/09/2018 [...] nausea, v omiting, diarrhea, or constipation.Bladder: +Bladder pain.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.Expanded ROS: N/AA llergies and current medication [...] uterine bleeding (AUB) [N93.9]Order(s):PELVIC US WH I [0899628] Order #: [id number]: 1 FUTURE PELVIC US WHI [7836638] Order #: [id number]: 1 FEMALE PELVIS TRANSVAG [3149839] Order #: [id number] FUTUREPrescriptions as of 08/09/2018 Sig: MIRABE GRON [...] of Service: EST PATIENT VISIT LEVEL 3 [99303]Disposition: Return i n about 1 week (around 08/16/2018) for Mirena placement with SW.Follow-up and Disposition History Jose rdedEncounter Number: [id number] Status:Closed by SANDER CHAIREZ MD on 08/09/18 progress on 2018-06 Protein HNO ID: [id number]: Sander Malik 07-03-2018 [facility] Al: (none)Author Type: Clinic PhysicianType: Progress NotesFiled: [place] 07/03/2018 5:18 PMNote Text:Danna Tucker ([id number]) Abdoulaye is a 37 year old female [...] Normal 07-03-2018 [place] [facility] (WOOB) ------DANNA RUIZ ([id number]) 1980 [facility] e Time Provider Department07/03/18 4:00 PM SANDER [...] pain [R39.89]Order(s):TSH BLD [SQ TSH] Order #: [id number] FUTURE PROLACTIN BLD [SQPROL] Order #: [id number] FUTUREPrescriptio ns as of 07/03/2018 Sig: LISDEXAMFETAMINE [...] of Service: EST PATIENT VISIT LEVEL 3 [39960]Follow- up and Disposition History RecordedEncounter Number: [id number] Status:Closed by SANDER CHAIREZ MD on 07/03/18 progress on 2018-06 Protein HNO ID: [id number]: Sander Malik 06-25-2018 [facility] va ChairezService: (none)Author Type: Clinic PhysicianType: Progress NotesFiled: [place] 06/25/2018 5:29 PMNote Text:Danna Tucker ([id number]) Abdoulaye is a 37 year old female [...] massesPELVIC: external genitalia normal, normal Bartholin's glands, urethra,Roff's glands, no vulvar lesions, no cervical lesions, [...] Normal 06-25-2018 [place] [facility] (WOOB) ------DANNA RUIZ ([id number]) 1980 [facility] Department06/25/18 3:45 PM SANDER [...] umber of children: 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 Histor y Main Topics Smoking status: [...] external genitalia normal, normal Bartholin's glands, urethra, Roff'sglands, no vulvar les ions, no cervical lesions, [...] [N93.9]Order(s):CONSUL T TO UROLOGY [9041] Order #: [id number]: 1 ENDOMETRIAL BIOPSY [2867784] Order #: [id number] 1 SURGICAL PATHOLOGY [5678386] Order #: [id number] as of 06/25/2018 Sig: LISDEXAMFETA MINE 40 [...] of Service: EST PATIENT VISIT LEVEL 4 [18742]Disposition: Return i n about 1 week (around 07/02/2018).Follow-up and Disposition History RecordedEncounter Number: [id number] Status:Closed by SANDER CHAIREZ MD on 06/25/18 [facility]-18-2018 [place] (WOOB) ------DANNA RUIZ [facility] ([id number]) 1980 [facility] e Time Provider Department06/18/18 SANDER CHAIREZ During your visit [place] today, we recorded the follo wing information about you:Sander Chairez MD 06/18/2018 1:48 PM SignedCalled ([id number]) patient about test results, and to see [...] Eosinophils/100 WBC Auto 0.4 % Normal 06-14 [facility] (Bld) [place] (94151) Erythrocyte distribution 14.2 11.5-15.0 % Normal 06-14 [facility] width Auto Ratio (RBC) [place] (97227) Hematocrit Auto Volume 39.6 36.0-46.0 % Normal 018 [facility] Fraction (Bld) [facility] (99579) Hemoglobin mass conc (Bld) 13.1 11.5-15.5 g/dL Normal [facility] (70034) Lymphocytes/100 WBC Auto 21.3 % Normal 06-14 [facility] (Bld) [place] (62020) MCH Auto Entitic mass 29.1 26.0-34.0 pg Normal 06-14-20 18 [facility] (RBC) [place] ([address]72) MCHC Auto mass conc (RBC) 33.1 30.5-36.0 g/dL Normal 05-17 [facility] (01570) MCV Auto Entitic volume 88.0 80.0-100.0 fL Normal 06-14 [facility] (RBC) [place] (52793) Platelet mean volume Auto 8.6 9.0-12.7 fL Low 05-17 [facility] Entitic volume (Bld) [place] (85498) Comment: Result Comment: Test perform ed at: [facility] [place] [facility], [address] [place] [address]., [place], [place] [address]. RBC Auto #/vol (Bld) 4.50 3.90-5.20 m/uL Normal 8 [facility] (40210) WBC Auto #/vol (Bld) 11.90 3.70-11.00 k/uL High 06-14-20 18 [facility] (57201) Abel Abs Baso 0.04 <0.11 k/uL Normal 06-14-2018 [facility] (23750) [place] Abs Eos 0.05 <0.46 k/uL Normal 06-14-2018 [facility] (65016) [place] Abs Lymp 2.54 1.00-4.00 k/uL Normal 06-14-2018 [facility] (48455) Abel Abs [place] 0.56 <0.87 k/uL Normal 06-14-2018 [facility] (23659) [place] Abs Neut 8.71 1.45-7.50 k/uL High 06-14-2018 [facility] (44925) [place] Baso% 0.3 % Normal 06-14-2018 [facility] (43381) Abel [place]% 4.7 % Normal 06-14-2018 [facility] (19162) [place] Neut% 73.3 % Normal 06-14-2018 [facility] (41912) Abel Platelet Cnt 385 150-400 k/uL Normal 8 [facility] (85104) us female pelvis transvag on 2018-06-14 US FEMALE * * *Final Report* * *DATE OF Normal 06-14-2018 [facility] PELVIS TRANSVAG EXAM: Jun 14 2018 2:46PM [facility] 1060 - US FEMALE PELVIS TRANSVAG (50787) / REASON: Pelvic and perineal pain * [...] then a follow-up is suggested in 2 months.Boxcar Weigher: PSCB Transcribe Date/Time: Jun 15 2018 8:55ADictated by : Viry SON examination was interpreted and the report reviewed and electronically signed by: JOB JANG DO on Jun 15 2018 4:37PM [id number] urine culture on 01-06-31 Bacteria Sp. Request/Comment: - Critically 2017 [place] identified Cx Specimen received in abnormal Clinic Nom (U) preservativeCulture [place] Result - 50,000 - (0 0000) <100,000 CFU/ml Lactose positive gram negative bacilli --> ABNORMAL ALERT Insignificant colony count. No further workup. --> ABNORMAL ALERT >=100,000 CFU/ml Normal urogenital helen Comment: Performed By: #### URCUL ### #[facility] [address] [place], [place] [id number]- [phone] progress on 2018-05 Protein mass HNO ID: [id number]: Normal 0 06-14-2018 [facility] [place] ([facility]) Janethervice: Sh[place] ([id number]) (none)Author Type: SonographerType: Progress NotesFiled: 06/14/2018 2:47 PMNote Text: Radiology Service Progress NotePATIENT NAME: Danna LinoRN: [id number] OF SERVICE: June 14, 2018TIME: 2:46 PMPATIENT IDENTITY VERIFICATION COMPLETED USING TWO (2) METHODS: Patientconfirmed name verbally and Date of .PATIENT GENDER DATA: Female. status: : NoBreastfeeding status: N/APATIENT RELEVANT IMPLANT DATA REVIEWED: Not ApplicableRADIOLOGY DEPARTMENT: UltrasoundPERIPHERAL IV DATA: Not applicableSIGNED BY: ANURADHA BARR [facility] RVTAugust 2017 2:46 PM Protein mass HNO ID: [id number]: Normal 0 06-14-2018 [facility] conc Sander ChairezService: [place] ([id number]) (none)Author Type: PhysicianType: Progress NotesFiled: 06/14/2018 1:11 [...] Chlamydia Amplif Negative for Chlamydia Normal 06-14-2018 [facility] trachomatis by [place] (61354) amplification. Comment: Performed By: #### GCCT #### [facility] [address] [place], [place] [id number]- [phone] GC Amplification Negative for Neisseria Normal 06-14-2018 [facility] gonorrhoeae by [place] (00088) amplification. Comment: Performed By: #### GCCT #### [facility] [place], [place] [phone]- [phone] GC/Chlam Amp Source Cervix Normal 06-14-2018 [facility] (81706) Comment: Performed By: #### GCCT #### [facility] [address] [place], [place] [phone]- [phone] cnov on 2018-06-14 [facility] Office Visit Normal 06-14-2018 [place] [facility] (WOOB) ------DANNA RUIZ Soo [place] ([id number]) 1980 FDat e Time Provider Department06/14/18 9:45 AM SANDER CHAIREZ During your [place] and visit today, we recorded the following information about you: Temperature Blood pressure Weight Last (77322 ) Period 99.3 degrees 170/98 8 2.6 [...] and was then treated for aTOA at [facility] t time.Hx of imaging:Pelvic US 06/10/18 [...] constipation and diarrhea [R19.8]Order(s):US FEMALE PELVIS TRANSVAG [[id number]] Order #: [id number] FUTURE UA DIP, URINE (POC) [8340084] Order #: [id number]. #:[id number] URINE CULTURE [SQURCUL] Order #: [id number] GC/CHLAMYDIA DNA DET [SQGCCAMP] Order #: [id number] BACT/JENY VAG GRAM STAIN [SQBVCNSM] Order #: [id number] FUTURE ABEL CBC AND DIFF [SQWCBC DF] Order #: [id number] FUTUREPrescriptions as of 06/14/2018 Sig: LISDEXAMFETAMINE 40 [...] exam.Follow-up and Disposition History Jose rdedEncounter Number: [id number] Status:Closed by SANDER CHAIREZ MD on 06/14/18 bact/cand vag grm st on 2018-06-14 Bact/Cand Vag Grm Sp. Request/Comment: - Swab Norm al 06-14-2018 [facility] (33704) Smear Result - BACTERIAL VAG INOSIS RESULT: Stain results indicate mixed morphotypes consistent with transition from normal vaginal helen. No Polymorphonuclear Leukocytes Rare Epithelial cells No Yeast observed Comment: Performed By: #### BVCNSM ## ##[facility] [address] [place], [place] [phone]- [phone] No panel information on 2007-09-26 CONVERTED ELECTRONIC ROSA M JONES M.D., PATHOLOGIST 09-26-2007 [facility] SIGNATURE (Electronic signature on file) ([id number]) Final Signed Out: 09/26/2007 16:19 CONVERTED FINAL ENDOMETRIUM, CURETTAGE - CHO RIONIC VILLI AND DECIDUA, CONSISTENT WITH 09-26-2007 [facility] DIAGNOSIS INTRAUTERINE . ([id number]) CONVERTED ORDERING Ordering Provider: MILLI 09-26-2007 [facility] PROVIDER MARGARETTE DIALLO ( [id number]) Vital Signs Vital Sign Description Value / Unit Date Location The following section is limited to 5 en tries per type and includes entries from the following time range: [id number] - [id number] 1. Body mass index (BMI) [Ratio] [facility]-25-[id number] Encounters Date Type Reason Provider Location 08-09-2018 [facility] [place] (0000 0) 07-03-2018 [facility] [place] (0000 0) 06-25-2018 - [facility] [place] (0000 0) 06-14-2018 - [facility] [place] (0000 0) 06-14-2018 - [facility] [place] (0000 0) 09-25-2007 - [facility] 09-25-2007 procedure [facility] 09-25-2007 - Results Only Millicliff Pfeiffer [facility] 09-25-2007 [facility] Procedures Procedure Name Date Provider Location [facility] ([id number]) Plan of Treatment Plan Description Date Location INFLUENZA (#1) INFLUENZA (#1) 2020 - [facility] 06-15-2020 ([id number]) HPV TESTING HPV TESTING 2010 - [facility] 2010 ([id number]) PAP TESTING PAP TESTING 2001 - [facility] 2001 ([id number]) DTAP,TDAP,TD (1 - DTAP,TDAP,TD (1 - Tdap) 12-31-1999 - [facility] Tdap) 12-31-1999 ([id number]) HEPATITIS C SCREENING HEPATITIS C SCREENING 1998 - [facility] 1998 ([id number]) HIV SCREENING HIV SCREENING 1998 - [facility] 1998 ([id number]) Social History Type Social History Description Date Locat ion Tobacco smoking status NHIS Unknown if ever smoked [facility] ([id number]) Sex Assigned At Not on file [facility] ([id number]) The following information is from the original [...] BE BASED ON THE PRIMARY CLINICAL RECORDS. [facility] provides no warranty or guarantee of the accuracy or completeness of information in this document. UNRECOGNIZED CONTENT PROVIDED BELOW FOR UNRECOGNIZED SECTION INFORMATION SOURCE DATE CREATED AUTHOR AUTHOR'S ORGANIZATIO N 09/23/2018 [facility] DATE CREATED AUTHOR AUTHOR'S ORGANIZATIO N 03/11/2020 [facility] [place] Found ation ([place]) UNRECOGNIZED CONTENT PROVIDED BELOW FOR UNRECOGNIZED SECTION Source Comments In the event this information is protected by the Federal Confidentiality of Alcohol and Drug Abuse Patient Records regulations: The Federal rules restrict any use of the information to criminally investigate or prosecute any alcohol or drug abuse patient.[facility] the event this information is protected by the Federal Confidentiality of Alcohol and Drug Abuse Patient Records regulations: The Federal rules restrict any use of the information to criminally investigate or prosecute any alcohol or drug abuse patient.[facility]
== END 2020-03-12 13:45 | disposition home or self-care (01) ==
LOC: ED 07:14 → SDC 07:40 → AC 07:51
PROVIDERS: Emergency Provider Emergency Medicine; Visit Provider Urology
PROC: 0TJ98ZZ Inspection of Ureter, Via Natural or Artificial Opening Endoscopic (ICD-10-PCS; CPT 52352; principal; 2020-03-12 09:50)
DX: N13.2 Hydronephrosis with renal and ureteral calculous obstruction (principal); T83.122A Displacement of indwelling ureteral stent, initial encounter; F17.200 Nicotine dependence, unspecified, uncomplicated; Z79.899 Other long term (current) drug therapy; Z79.1 Long term (current) use of non-steroidal anti-inflammatories (NSAID)
CPT/HCPCS: 52356; 76000; 88300; 99282; J7030; J7120; C2617; J2405

== ENCOUNTER 2021-04-14 09:54 | Day surgery (SDC) | payer MEDICAID, SELFPAY ==
[2020-03-12 09:54] VITALS: BMI 34.2
--- NOTE | 2021-04-12 10:27 | PCM.HP.BLA ---
History and Physical Date of Admission: 04/14/21 HPI: The patient is a 40 year old female presenting for pre-operative visit. She is scheduled for Hysteroscopy D&C w/ polyp resection for AUB, endometrial polyp on 04/14/2021. Procedure discussed along with risks, benefits and complications. Other alternatives discussed for management. Consent form signed? Yes. ? ? PAST MEDICAL HISTORY PAST MEDICAL HISTORY Diagnosis Date ? Hemophilia (HCC) ? ? Protein S deficiency (HCC) ? ? Tubo-ovarian abscess 06/2017 ? ? PAST SURGICAL HISTORY PAST SURGICAL HISTORY Procedure Laterality Date ? APPENDECTOMY ? 12/2014 ? CYSTOSCOPY,URETEROSC,BIOPSY Bilateral 08/06/2018 ? D+C ? ? ? x 4 ? REMOVAL GALLBLADDER ? 12/2013 ? 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 TUBAL LIGATION HX ? 05/16/2009 ? ? ? CURRENT MEDICATIONS Current Outpatient Medications Medication Sig Dispense Refill ? tranexamic acid (LYSTEDA) 650 mg tablet Take 2 tablets by mouth three times daily as needed (heavy menstrual bleeding) for up to 5 days. 30 tablet 0 ? norethindrone (AYGESTIN) 5 mg tablet Take 1 tablet TID until bleeding stops, the BID x 3 days, the daily x 3 days. 35 tablet 0 ? lisinopril (ZESTRIL, PRINIVIL) 40 mg tablet Take 40 mg by mouth once daily. ? ? ? methen-sod phos-meth blue-hyos (UROGESIC-BLUE) 81.6-40.8-0.12 mg tab Take by mouth. ? ? ? lisdexamfetamine (VYVANSE) 40 mg capsule Take 40 mg by mouth once daily. ? ? ? No current facility-administered medications for this visit. ? ? ALLERGIES: Patient has no known allergies. ? PERSONAL HISTORY: SOCIAL HISTORY Social History ? Tobacco Use ? Smoking status: Current Every Day Smoker ? Smokeless tobacco: Never Used Substance Use Topics ? Alcohol use: No ? Drug use: No ? FAMILY HISTORY: FAMILY HISTORY No family history on file. ? REVIEW OF SYMPTOMS: GENERAL: denies fevers or chills ENDOCRINOLOGY: has not been on steroids Cardiology : denies palpitations or chest pain Respiratory: denies SOB or cough Hematology: denies history of prolonged bleeding or easy bruising or VTE Allergy: Denies history of personal or family history of allergy to anesthesia ? PHYSICAL EXAMINATION: ? VITALS: Last menstrual period 01/27/2021. ? GENERAL: The patient is well nourished, well hydrated in no acute distress. , The patient is oriented to time, place, and person. NECK: Supple. No lynphadenopathy, normal thyroid, no thyromegaly. LUNGS: Clear to auscultation bilaterally. no wheezes, rhonchi or rales HEART: Regular rate and rhythm, Normal heart sounds and No murmurs or gallops ? IMPRESSION: aub, endometrial polyp ? PLAN: The risks/benefits/alternatives and personal involved for the planned hysteroscopy D&C with polyp resection and IUD placement were reviewed with the patient. Her questions were answered to her satisfaction and she desires to proceed. Consent was signed. I reviewed with her postop instructions and expectations. I have reviewed and updated past medical and surgical history, medications and allergies ? ? Assessment & Plan Assessment/Plan (1) Abnormal uterine bleeding: (2) Endometrial polyp:
[2021-04-13 11:29] LABS: Hematocrit 30.2 % (37-47); Hemoglobin 9.5 g/dL (12.0-15.0); Mean Corp Hgb Conc 31.5 g/dL (32-36); Mean Corpuscular Hgb 28.1 pg (27.0-32.0); Mean Corpuscular Volume 89.3 fL (81-99); Mean Platelet Vol. 8.9 fl (6.2-12.0); Platelet Count 508 K/mm3 (150-450); RBC Distribution Width CV 13.9 % (11.6-14.6); RBC Distribution Width SD 45.4 fl (35.1-43.9); Red Blood Count 3.38 M/mm3 (4.2-5.4); White Blood Count 10.6 K/mm3 (4.4-11.0)
--- NOTE | 2021-04-13 17:05 | SUR.PREOP ---
anesthesia aware of CBC
[2021-04-14] VITALS (7 sets, daily range): BP systolic 155–197; BP diastolic 81–111; PULSE 67–84; RESP 16–18; TEMP 36.1–37.1; O2SAT 99–100; BMI 34.2
--- NOTE | 2021-04-14 | EMB_PTH ---
PATIENT: DANNA RUIZ LOC: [facility] [place] U#:[id number] AGE/SX: 40/F ROOM: RE04/14/[address]: Dr. Antonette Meyer MD : 1980 BED: DIS: 04/14/2021 SPEC #: [id number] RECD: 04/14/21 13:08 STATUS: MARIELA MARTIN #: [id number] RADHA: 04/14/21 00:[address]: Antonette Meyer DEPT: SURGICAL PATHOLOGY RECD BY: Kendall Montes De Oca ENTERED: 04/15/21 09:07 SP TYPE: ENDOM BX/C SINCERE DR: Dr. aMgnolia Jay, DO Tissues: Endometrium, NOS Procedures: Surgery Specimen Level IV HEADER OPERATION: Hysteroscopy, D & C, IUD insertion PRE-OP DIAGNOSIS: Abnormal uterine bleeding, endometrial polyp TISSUE SUBMITTED: Endometrial curettings MICROSCOPIC DIAGNOSIS Endometrium, biopsy: Polypoid fragments of proliferative endometrium with focal stromal breakdown. Benign stromal hyperplasia consistent with exogenous hormonal effect. Fragments of endocervix with squamous metaplasia. AM:edelmira 04/19/2021 MICROSCOPIC DESCRIPTION Slides are reviewed. GROSS DESCRIPTION Received in fixative is one container labeled with the patient's name and designated endometrial curettings. The specimen consists of multiple fragments of hemorrhagic soft tissue that in aggregate measure 7.5 x 3 x 0.3 cm. The entire specimen is submitted in five cassettes. / DIANA:edelmira 04/15/21 TC:5 CPT: 90641
[2021-04-14 10:26] LABS: Internal QC Validated? YES +Cl - CLEAR BKGD; Pregnancy, Urine Negative Negative
[2021-04-14] MEDS: Celecoxib 200 MG Capsule 400 MG PO (10:36)
[2021-04-14] MEDS: Acetaminophen 500 MG Tablet 1000 MG PO (10:37)
[2021-04-14] MEDS: Lactated Ringers 1,000 ML 100 ML IV (10:48)
[2021-04-14] MEDS: Levonorgestrel IUD (Liletta) 1 EACH INTRA-UTER (11:59)
--- NOTE | 2021-04-14 12:06 | PCM.OPRPT ---
Problems Associated Problem List Diagnoses (1) Endometrial polyp: (2) Abnormal uterine bleeding: Report of Operation Date of Procedure: 04/14/21 Pre-Operative Diagnosis: Menorrhagia, endometrial polyp Post-Operative Diagnosis: same Surgery/Procedure Performed:: Hysteroscopy D&C with Liletta IUD insertion Description of Surgical Findings:: Normal-appearing cervix and vagina. Uterus sounded to 11-1/2 cm. Normal-appearing ragged, thick disorganized endometrium. No discrete pathology noted Surgeon: Antonette Meyer tool polishing machine operator: None Type of Anesthesia: MAC/Supplemental/Local Anesthesiologist: Fredy Smith Special Medications: none Specimen's removed: enodometrial curettings Drains: none Estimated Blood Loss (mL): 10 Fluids Replaced: 800cc Description of Procedure: The patient was taken to the OR where she was prepped and draped in dorsal lithotomy position. The weighted speculum was placed in the vagina and the anterior lip of the cervix was grasped with a single-tooth tenaculum. The cervix was dilated serially with Hegar dilators. The 7 hysteroscope was placed into the uterine cavity and the above findings were noted. Bilateral tubal ostia were identified. The hysteroscope was removed. A gentle sharp curettage was done of the uterine cavity. The hysteroscope was replaced, no discrete polyp remained. The Liletta IUD was readied and loaded in the usual fashion. It was inserted in the usual fashion. The strings were trimmed to 2 cm. The instruments were removed from the vagina. The specimen was handed off and sent to pathology. All sponge and needle counts were correct. Vaginal sweep was performed by me. The patient was awakened and taken to the recovery room in stable condition. Hysteroscopic ins: 300cc normal saline Hysteroscopic outs:200cc l Grafts/Implants Used: Liletta IUD Procedure Start Time: 11:40 Procedure Stop Time: 12:01 Complications none Admit VTE Documentation VTE Present on Admission: No VTE Mechan Device Prophylaxis: SCD's VTE Pharm Prophylaxis ordered?: No Reason prophylaxis not ordered:: Procedure Not Indicated
--- NOTE | 2021-04-14 12:09 | PCM.DC ---
Discharge Instructions Diet Discharge Diet: No restrictions Activity May resume sexual activity in: 2 weeks Lifting Restrictions: none Dressing / Incision Call your doctor if your incision/area has: Sudden Increased Bleeding and Foul Smelling Discharge Call your doctor if you observe: Fever of 101 or Higher and Using more than 1 pad per hour (for 2 hrs in a row) Follow Up Care Please Follow Up With: Antonette Meyer MD When: 2-4 weeks or as needed. Call [phone] to make an appointment or with any concerns. Test Results: Test results from this visit will be discussed in further detail at your follow-up appointment, if applicable. Discharge Plan Admission Primary Reason for Your Visit: Dilation and curettage for abnormal uterine bleeding and endometrial polyp. Attending Provider: Antonette Meyer Primary Care Provider: Magnolia Jay Instructions Patient Instructions: Dilation and Curettage Discharge Orders/Prescriptions Prescriptions: New oxycodone 5 MG tablet 5 mg PO Q6H PRN PRN (Reason: severe pain) 72 Days Qty: 6 RF: 0 Continued ibuprofen 400 MG tablet 400 mg PO Q4H PRN (Reason: Pain) RF: 0 Lisdexamfetamine Dimesylate [Vyvanse] 40 MG capsule 40 mg PO DAILY RF: 0 metoprolol tartrate 50 MG tablet 40 mg PO QHS RF: 0 ondansetron 4 MG tablet 8 mg PO Q8H PRN PRN (Reason: Nausea) Qty: 20 RF: 0 tranexamic acid 650 mg tablet 650 mg PO TID RF: 0 Discontinued norethindrone acetate [Aygestin] 5 mg Tablet 5 mg PO TID RF: 0 Referrals / Follow Up: Magnolia Jay, [Primary Care Provider] - Disposition Disposition (needs filled in before D/C Order can be placed): Home, Self Care
== END 2021-04-14 13:08 | disposition home or self-care (01) ==
LOC: SDC 09:55 → AC 09:55
PROVIDERS: Referring Provider Obstetrics & Gynecology; Visit Provider Obstetrics & Gynecology
PROC: 0UB98ZZ Excision of Uterus, Via Natural or Artificial Opening Endoscopic (ICD-10-PCS; CPT 58558; principal; 2021-04-14 11:20)
DX: N92.0 Excessive and frequent menstruation with regular cycle (principal); N87.9 Dysplasia of cervix uteri, unspecified; N84.0 Polyp of corpus uteri; Z20.822 Contact with and (suspected) exposure to COVID-19; I10 Essential (primary) hypertension; F17.200 Nicotine dependence, unspecified, uncomplicated; Z79.899 Other long term (current) drug therapy; Z87.19 Personal history of other diseases of the digestive system
CPT/HCPCS: 58300; 58558; 36415; 81025; 85027; 87426; 88305; C9803; J7120; J2405

== ENCOUNTER 2021-08-04 05:40 | Day surgery (SDC) | payer MEDICAID, SELFPAY ==
--- NOTE | 2021-08-03 11:33 | PCM.HP.BLA ---
History and Physical Date of Admission: 08/04/21 HPI: The patient is a 40 year old female presenting for pre-operative visit. She is scheduled for LAVH with bilateral salpingectomy for fibroids and menorrhagia on 08/04/2021. Procedure discussed along with risks, benefits and complications. Other alternatives discussed for management. Consent form signed? Yes. ? ? PAST MEDICAL HISTORY PAST MEDICAL HISTORY Diagnosis Date ? Hemophilia (HCC) ? ? Protein S deficiency (HCC) ? ? Tubo-ovarian abscess 06/2017 ? ? PAST SURGICAL HISTORY PAST SURGICAL HISTORY Procedure Laterality Date ? APPENDECTOMY ? 12/2014 ? CYSTOSCOPY,URETEROSC,BIOPSY Bilateral 08/06/2018 ? D+C ? ? ? x 4 ? HYSTEROSCOPY, SURGICAL; WITH SAMPLI ? 04/14/2021 ? hysteroscopy D&C ? INTERFERENTIAL STIM 2 VELAZCO ? 2018 ? REMOVAL GALLBLADDER ? 12/2013 ? 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 TUBAL LIGATION HX ? 05/16/2009 ? ? ? CURRENT MEDICATIONS Current Outpatient Medications Medication Sig Dispense Refill ? norethindrone (AYGESTIN) 5 mg tablet Take 1 tablet TID until bleeding stops, the BID x 3 days, the daily x 3 days. 35 tablet 1 ? ondansetron (ZOFRAN) 4 mg tablet 4 mg. ? lisinopril (ZESTRIL, PRINIVIL) 40 mg tablet Take 40 mg by mouth once daily. ? methen-sod phos-meth blue-hyos (UROGESIC-BLUE) 81.6-40.8-0.12 mg tab Take by mouth. ? traMADol (ULTRAM) 50 mg tablet Take 50 mg by mouth every 6 hours as needed for pain. (Patient not taking: Reported on 07/20/2021) ? ? ? lisdexamfetamine (VYVANSE) 40 mg capsule Take 40 mg by mouth once daily. (Patient not taking: Reported on 07/20/2021) ? ? ? No current facility-administered medications for this visit. ? ? ALLERGIES: Patient has no known allergies. ? PERSONAL HISTORY: SOCIAL HISTORY Social History ? Tobacco Use ? Smoking status: Current Every Day Smoker ? Smokeless tobacco: Never Used Substance Use Topics ? Alcohol use: No ? Drug use: No ? FAMILY HISTORY: FAMILY HISTORY No family history on file. ? REVIEW OF SYMPTOMS: GENERAL: denies fevers or chills ENDOCRINOLOGY: has not been on steroids Cardiology : denies palpitations or chest pain Respiratory: denies SOB or cough Hematology: denies history of prolonged bleeding or easy bruising or VTE Allergy: Denies history of personal or family history of allergy to anesthesia ? PHYSICAL EXAMINATION: ? VITALS: Last menstrual period 01/27/2021. ? GENERAL: The patient is well nourished, well hydrated in no acute distress. , The patient is oriented to time, place, and person. NECK: Supple. No lynphadenopathy, normal thyroid, no thyromegaly. LUNGS: Clear to auscultation bilaterally. no wheezes, rhonchi or rales HEART: Regular rate and rhythm, Normal heart sounds and No murmurs or gallops ? IMPRESSION: intramural and submucosal uterine fibroids, menorrhagia, adneomyosis ? PLAN: The risks/benefits/alternatives and personal involved for the planned LAVH, bilateral salpingectomy were reviewed with the patient. Her questions were answered to her satisfaction and she desires to proceed. Consent was signed. I reviewed with her postop instructions and expectations. ? ? I have reviewed and updated past medical and surgical history, medications and allergies This H&P was completed on 08/03/21. Assessment & Plan Assessment/Plan (1) Menorrhagia: QUALIFIERS: Menorrhagia type: with regular cycle Qualified Code(s): N92.0 - Excessive and frequent menstruation with regular cycle (2) Fibroids, submucosal: (3) Fibroids, intramural: (4) Adenomyosis:
[2021-08-04] VITALS (9 sets, daily range): BP systolic 102–169; BP diastolic 41–89; PULSE 57–81; RESP 16–19; TEMP 36.1–36.2; O2SAT 92–100; BMI 33.3
[2021-08-04] MEDS: Phenazopyridine 95 MG Tablet 190 MG PO (06:11)
[2021-08-04] MEDS: Celecoxib 200 MG Capsule 400 MG PO (06:12)
[2021-08-04] MEDS: Scopolamine 1mg/72hr Patch 1 PATCH TD (06:13)
[2021-08-04] MEDS: Gabapentin 600 MG Tablet PO (06:17)
[2021-08-04] MEDS: Acetaminophen 500 MG Tablet 1000 MG PO (06:18)
[2021-08-04] MEDS: Lactated Ringers 1,000 ML 40 ML IV ×2 (06:33→08:30)
[2021-08-04] MEDS: Enoxaparin 40 MG/0.4 ML Syringe SC (06:37)
[2021-08-04 06:40] LABS: Hematocrit 36.1 % (37-47); Hemoglobin 10.7 g/dL (12.0-15.0); Mean Corp Hgb Conc 29.6 g/dL (32-36); Mean Corpuscular Hgb 22.6 pg (27.0-32.0); Mean Corpuscular Volume 76.3 fL (81-99); Mean Platelet Vol. 8.4 fl (6.2-12.0); POSITIVE MORPHOLOGY YES; Platelet Count 453 K/mm3 (150-450); RBC Distribution Width SD 56.8 fl (35.1-43.9); Red Blood Count 4.73 M/mm3 (4.2-5.4); White Blood Count 8.9 K/mm3 (4.4-11.0)
[2021-08-04 06:58] LABS: Scan Indicated on CBC? Y/N YES- FLAGS NOTED
[2021-08-04 07:16] LABS: Bedside Glucose 91 mg/dL (70-110)
[2021-08-04 07:23] LABS: Magnesium 2.4 mg/dL (1.6-2.6)
[2021-08-04] MEDS: Cefazolin 2 GM in 0.9% Normal Saline 100 ML IV (07:27)
--- NOTE | 2021-08-04 07:30 | HYST_PTH ---
PATIENT: DANNA RUIZ LOC: [facility] [place] U#:[id number] AGE/SX: 40/F ROOM: RE08/04/[address]: Dr. Antonette Meyer MD : 1980 BED: DIS: 08/04/2021 SPEC #: [id number] RECD: 08/04/21 09:28 STATUS: MARIELA MARIO #: [id number] RADHA: 08/04/21 07:[address]: Antonette Meyer DEPT: SURGICAL PATHOLOGY RECD BY: Columba Corona ENTERED: 08/04/21 11:11 SP TYPE: HYSTERECT OTHR DR: Dr. Magnolia Jay, DO Tissues: Uterus, NOS Procedures: Surgery Specimen Level V HEADER OPERATION: ERAS, laparoscopic vaginal hysterectomy, salpingectomy PRE-OP DIAGNOSIS: Menorrhagia, submucosal and intramural fibroids, adenomyosis TISSUE SUBMITTED: Uterus, bilateral fallopian tubes MICROSCOPIC DIAGNOSIS Uterus, bilateral fallopian tubes, vagina hysterectomy and bilateral salpingectomy: Cervix ? chronic cystic cervicitis and squamous metaplasia. Endometrium ? proliferative endometrium. Myometrium ? intramural and subserosal leiomyomas (largest measuring 2.5 cm in greatest dimension). - Adenomyosis. Bilateral fallopian tubes - no pathologic diagnosis. SJ:rg 08/05/2021 MICROSCOPIC DESCRIPTION Slides are reviewed. GROSS DESCRIPTION Received in fixative is one container labeled with the patient's name and designated uterus, bilateral fallopian tubes. The specimen consists of a hysterectomy specimen consisting of uterus with cervix and detached bilateral fallopian tubes. The uterus with cervix weighs 165 gm and measures 10 x 8 x 6 cm. The serosal surface is bullard, glistening. A subserosal nodule is present. The ectocervical mucosa is unremarkable. The external os is patulous in contour. The endocervical canal measures 3.5 cm in length and the endocervical mucosa is bullard, glistening and unremarkable. Sections of the cervix reveal a few cysts filled with mucoid fluid. The triangular endometrial cavity measures 5 cm in length and up to 3.5 cm in width. The endometrium is bullard, glistening without any mass lesion and measures 0.1 cm in thickness. Sections through the uterine wall reveal multiple intramural and subserosal nodular masses. The largest mass is subserosal in location and measures 2.5 cm in greatest dimension. The uninvolved uterine wall measures up to 3.5 cm in thickness. A focal area shows trabeculated cut surfaces suspicious for adenomyosis. The fallopian tubes are not identified as right or left and measures 7 cm in length and 0.5 cm in diameter and 2.5 cm in length and 1 cm in diameter. The fimbrial end is identified. Sections reveal unremarkable cut surfaces. Lens Edge Grinder Machine sections are submitted in ten cassettes as follows: 1??anterior cervix, 2 - posterior cervix, 3 & 4 - anterior uterine wall, 5 & 6 - posterior uterine wall, 7??largest nodular mass, 8 - smaller nodular masses, 9 - one fallopian tube, 10 - second fallopian tube, smaller fallopian tube, entirely submitted. / DIANA:edelmira 08/04/21 TC:1 CPT: 22648
[2021-08-04] MEDS: Lidocaine 1% /Epi 1:100 (50ml) 50 ML VIAL (08:00)
[2021-08-04] MEDS: Bupivacaine Mpf 0.5% 30 ML VIAL (08:00)
[2021-08-04] MEDS: dexAMETHasone 10 MG/ML Vial 8 MG IV (09:00)
[2021-08-04] MEDS: Ondansetron 4 MG/2 ML Vial IV (09:00)
--- NOTE | 2021-08-04 09:03 | PCM.OPRPT ---
Problems Associated Problem List Diagnoses (1) Adenomyosis: (2) Fibroids, intramural: (3) Fibroids, submucosal: (4) Abnormal uterine bleeding: Report of Operation Date of Procedure: 08/04/21 Pre-Operative Diagnosis: AUB, fibroids, adenomyosis Post-Operative Diagnosis: same Surgery/Procedure Performed:: LAVH, bilateral salpingectomy Description of Surgical Findings:: uterus with fibroids, normal ovaries and peritoneal cavity, normal tubes with evidence of tubal Surgeon: Antonette Meyer enterprise software engineer: Laisha Onofre enterprise software engineer: Yana Woods Type of Anesthesia: General Anesthesiologist: Mich Cam Specimen's removed: bilateral fallopian tubes, uterus and cervix Drains: none Estimated Blood Loss (mL): 30 Fluids Replaced: 1500 Description of Procedure: The patient was taken to the operating room where she was prepped and draped in the dorsal lithotomy position. Her arms were tucked to the side and padded and her legs were placed in the yellowfin stirrups. Care was taken to ensure that she was placed in a neurologically safe and neutral position. A weighted speculum was placed in the vagina and the anterior lip of the cervix was grasped with a single-tooth tenaculum. The uterus sounded to 9 centimeters. The ZUMI uterine manipulator was placed and secured. The Ramirez catheter was placed to straight drain. Attention was turned to the abdominal portion of the case. Before skin incisions were made they were infiltrated with 0.5% Marcaine solution for local anesthetic. A 5 mm intraumbilical incision was made and while tenting the anterior abdominal wall up with towel clamps a 5 mm blade less trocar and sleeve were advanced directly into the peritoneal cavity. Peritoneal placement was confirmed with the laparoscope the pneumoperitoneum was created, and the underlying abdominal contents were intact. The patient was placed in Trendelenburg and the above findings were noted. Right and left lateral 5 mm trochars were placed under direct visualization without difficulty. The antimesenteric portion of the tube was clamped sealed and transected serially on both sides with the LigaSure device. The round ligaments were clamped sealed and transected and a window was made in the peritoneum. The utero-ovarian ligaments were then clamped, sealed and transected with the LigaSure device and the pedicles were hemostatic The bladder flap was dissected down with the LigaSure device and blunt dissection and the uterine arteries were then skeletonized. The uterine arteries were clamped, sealed and transected on both sides with the LigaSure device. At this point the pedicles were all examined and found to be hemostatic. Attention was turned to the vaginal portion of the case. 1% lidocaine with dilute epinephrine solution was used to infiltrate the anterior vaginal epithelium over the cervix. An incision was made from 3 to 9:00 across the anterior vaginal epithelium and the vaginal epithelium was dissected back with blunt sharp dissection. The anterior colpotomy incision was made. The vaginal epithelium on each side of the cervix at 3 and 9:00 was clamped, transected and suture ligated. The next pedicle contained the anterior peritoneum and part of the cardinal ligament. The pedicle was was clamped with a Sara clamp, transected and suture-ligated. Hemostasis was noted. The uterine fundus was brought through the anterior colpotomy incision. The uterosacral ligaments and vaginal cuff were secured with Sara clamps. The pedicles were transected. The uterus and cervix were then amputated and removed. The pedicles were secured with an 0 Vicryl suture. At this point, the pedicles were all examined and hemostasis was assured. A [id number] was needed in the midline and the vaginal cuff between the uterosacrals to tack the peritoneum down to the posterior vaginal wall. The vaginal cuff was then closed in a horizontal fashion with interrupted 0 Vicryl [id number] sutures. Care was taken to secure the vagina to the uterosacral ligaments. The Ramirez catheter was removed and a cystoscopy was performed by Dr. Guardado with me present in the operating suite. The bladder appeared normal and was intact. Both ureteral orifices were noted and both ureteral jets were seen. The cystoscope was removed and the Ramirez catheter was placed back to straight drain. A sponge stick was placed in the vagina to help place traction against the vaginal cuff. The laparoscope was reinserted into the abdomen and the pneumoperitoneum was re-created. The pedicles were reexamined and found to be hemostatic. The vaginal cuff was hemostatic. Saurabh was placed over the peritoneal edges and no active bleeding was noted through the Saurabh. The right and left lateral ports were taken out and the sites were hemostatic. The pneumoperitoneum was released and even under low pressure there was no bleeding of any of the pedicles are vaginal cuff. The umbilical port was removed. The umbilical skin incisions were closed with Monocryl suture and skin glue. The vaginal instruments were removed by me and a vaginal sweep was completed by me. Dr. Guardado provided camera guidance, tissue manipulation and retraction during the surgery The surgery was performed by me with assistance other than the portions dictated as above. There were no qualified residents available for this procedure. All sponge lap and needle counts were correct and the patient was transferred to the recovery room in stable condition. Grafts/Implants Used: none Procedure Start Time: 07:51 Procedure Stop Time: 09:10 Complications none Admit VTE Documentation VTE Present on Admission: No VTE Mechan Device Prophylaxis: SCD's VTE Pharm Prophylaxis ordered?: Yes
--- NOTE | 2021-08-04 09:32 | PCM.DC.SUM ---
Providers Primary Care Physician: Dr. Magnolia Jay DO Reason For Visit: ERAS, LAP VAG HYSTER, BILATERAL SALPING Diagnosis Discharge Diagnosis (1) Adenomyosis: Status: Acute Code(s): N80.0 - Endometriosis of uterus (2) Fibroids, intramural: Status: Acute Code(s): D25.1 - Intramural leiomyoma of uterus (3) Fibroids, submucosal: Status: Acute Code(s): D25.0 - Submucous leiomyoma of uterus (4) Abnormal uterine bleeding: Status: Acute Code(s): N93.9 - Abnormal uterine and vaginal bleeding, unspecified Medications at Discharge Home Medications ibuprofen 400 mg PO Q4H PRN 06/09/17 metoprolol tartrate 40 mg PO QHS 12/12/18 ondansetron 8 mg PO Q8H PRN PRN #20 tab 03/12/20 ibuprofen 600 mg PO Q6H PRN #60 tablet 08/04/21 oxycodone 5 mg PO Q6H PRN PRN 7 Days #20 tablet 08/04/21 Weight / BMI Weight Weight: 82.6 kg Body Mass Index (BMI) 33.3 ABG / Lab / Microbiology Data Result Diagrams: 08/04/21 06:30 Laboratory: Laboratory Results - last 24 hr 08/04/21 06:30: Magnesium 2.4 08/04/21 06:30: WBC 8.9, RBC 4.73, Hgb 10.7 L, Hct 36.1 L, MCV 76.3 L, MCH 22.6 L, MCHC 29.6 L, RDW Std Deviation 56.8 H, RDW Coeff of Erik 21.0 H, Plt Count 453 H, MPV 8.4 08/04/21 06:30: Blood Type A POSITIVE, Antibody Screen NEGATIVE 08/04/21 06:45: POC Glucose 91 Microbiology: Microbiology 08/03/21 09:53 Interface Orders SARS-CoV-2 Antigen (Rapid) - Final D/C Instructions May shower in (days): 1 May resume sexual activity in: 6-8 weeks and - (Nothing in your vagina for 6 weeks. No vaginal or anal intercourse for 6-8 weeks) Cleanse incision/area with: Soap & Water and - (Your incisions have skin glue, it can get wet, leave the glue on until it falls off. ) Please Follow Up With: Antonette Meyer MD When: With my office in 1-2 and 6 weeks or as needed. [phone] Meaningful Use Info Meaningful Use Diagnoses (Choose all that apply): None applicable Discharge Plan Admission Primary Reason for Your Visit: hysterectomy Attending Provider: Antonette Meyer Primary Care Provider: Magnolia Jay Instructions Patient Instructions: Hysterectomy Vaginal Dc Discharge Orders/Prescriptions Prescriptions: New oxycodone 5 mg tablet 5 mg PO Q6H PRN PRN (Reason: severe pain) 7 Days Qty: 20 RF: 0 ibuprofen [ibuprofen] 600 MG tablet 600 mg PO Q6H PRN (Reason: Pain) Qty: 60 RF: 1 Continued metoprolol tartrate 50 MG tablet 40 mg PO QHS RF: 0 ondansetron 4 MG tablet 8 mg PO Q8H PRN PRN (Reason: Nausea) Qty: 20 RF: 0 Held ibuprofen 400 MG tablet 400 mg PO Q4H PRN (Reason: Pain) RF: 0 Hold Instructions: Resume on 08/19/21. Discontinued norethindrone acetate [Aygestin] 5 mg Tablet 5 mg PO TID RF: 0 Referrals / Follow Up: Magnolia Jay, [Primary Care Provider] - Disposition Disposition (needs filled in before D/C Order can be placed): Home, Self Care
== END 2021-08-04 11:48 | disposition home or self-care (01) ==
LOC: SDC 05:41 → AC 05:41
PROVIDERS: Anesthesiology; Referring Provider Obstetrics & Gynecology; Visit Provider Obstetrics & Gynecology
PROC: 0UT9FZZ Resection of Uterus, Via Natural or Artificial Opening With Percutaneous Endoscopic Assistance (ICD-10-PCS; CPT 58552; principal; 2021-08-04 07:05)
DX: D25.0 Submucous leiomyoma of uterus (principal); D25.1 Intramural leiomyoma of uterus; D25.2 Subserosal leiomyoma of uterus; N80.0 Endometriosis of uterus; N72 Inflammatory disease of cervix uteri; Z20.822 Contact with and (suspected) exposure to COVID-19; F17.200 Nicotine dependence, unspecified, uncomplicated; Z79.899 Other long term (current) drug therapy
CPT/HCPCS: 00944; 58552; 82962; 83735; 85027; 86850; 86900; 86901; 87426; 88307; C9803; J7120; J1940; J2405

== ENCOUNTER → 2023-05-11 | Outpatient (CLI) | payer MEDICAID, SELFPAY ==
--- NOTE | 2023-05-11 16:22 | CT_ITS ---
EXAM: CT ABDOMEN AND PELVIS WITHOUT INTRAVENOUS CONTRAST CLINICAL INDICATION: LEFT FLANK PAIN, UTI, HX OF STONES TECHNIQUE: Helically acquired images were obtained of the abdomen and pelvis without intravenous contrast. This CT exam was performed using one or more of the following dose reduction techniques: automated exposure control, adjustment of the mA and/or kV according to patient size, and/or use of iterative reconstruction technique. RADIATION DOSE: CTDIvol = 14.99 mGy, DLP = 838.72 mGy-cm COMPARISON: June 10, 2017 enhanced exam. FINDINGS: LOWER THORAX: Unremarkable. Lung bases are clear. No cardiomegaly. No significant pericardial effusion. ABDOMEN: LIVER: Unremarkable. Homogeneous. GALLBLADDER AND BILE DUCTS: Cholecystectomy clips. No intra- or extrahepatic biliary ductal dilation. PANCREAS: Unremarkable. No focal cystic mass. SPLEEN: Unremarkable. Normal size without focal cystic or solid mass. ADRENALS: Unremarkable. No nodules. KIDNEYS AND URETERS: Larger size and more lobulated shape of a indeterminate lesion at the upper lateral left kidney, Hounsfield units of less than 10, measuring 2.1 cm x 1.7 cm, it was 0.7 cm x 1.1 cm on prior exam. New and much larger stones in the left kidney with discontinuous staghorn-like appearance of 2 adjacent large stones in the left lower pole kidney and renal pelvis, stone in the renal pelvis roughly 2.1 cm. At least 3 additional small stones in the left kidney and one on the right. STOMACH AND BOWEL: Mild to moderate stool in most of the colon. Scattered diverticulosis in most of the colon, especially in the mid to distal colon. No evidence of significant acute diverticulitis. No stomach or bowel distention. PELVIS: APPENDIX: Postoperative changes typical of appendectomy are again noted. BLADDER: Unremarkable. REPRODUCTIVE: Hysterectomy, new since prior exam. ABDOMEN and PELVIS: INTRAPERITONEAL SPACE: Unremarkable. No ascites or other fluid collection. No free air. BONES/JOINTS: Unremarkable. No suspicious lytic or blastic abnormality. SOFT TISSUES: Unremarkable. No discrete abdominal or pelvic wall hernia. VASCULATURE: Unremarkable. Abdominal aorta is non-dilated. LYMPH NODES: Unremarkable. No enlarged lymph nodes. TUBES, LINES AND DEVICES: Implanted battery type device and neurostimulator leads extending into the sacral neural foramen and there is a pelvic sidewalls, new from prior exam. Mild mixed density material in the stomach. No dilated small bowel loops. CT/Abdomen/Pelvis without Cont IMPRESSION: 1. 2 adjacent large stones or connected large branching stone in the left renal pelvis and lower pole calyx respectively, staghorn type, presumably due to indolent infection. Mild left renal pelvis dilatation around the partially infrarenal portion of the renal pelvic stone, it measures 1.5 cm AP. Stone in the left lower pole calyx is significantly larger, the renal pelvic stone component is new. No ureter dilatation or ureter stone. No perinephric fluid collections. 2. Larger size of previously seen cystic lesion at the upper outer left kidney compared to 2017. Lobulated shape. This is not adequately evaluated on unenhanced exam. Additional evaluation such as MRI with renal protocol, or CT with renal protocol is recommended. Cannot exclude neoplasm. 3. Scattered diverticulosis in mid to distal colon, moderate. Moderate stool in the colon. 4. Cholecystectomy, appendectomy and hysterectomy. Electronically Signed: Hiwot Boudreaux MD at 9:08 EDT ,
== END | disposition home or self-care (01) ==
PROVIDERS: Referring Provider Urology; Visit Provider Urology
DX: R10.9 Unspecified abdominal pain (principal); N39.0 Urinary tract infection, site not specified; Z87.442 Personal history of urinary calculi
CPT/HCPCS: 74176

== ENCOUNTER → 2023-05-15 | Outpatient (CLI) | payer MEDICAID, SELFPAY ==
[2023-05-15 15:28] LABS: Absolute Lymphocyte Count 3.45 X10^3/uL (0.83-4.51); Absolute Neutrophil Count 5.6 X10^3/uL (2.0-7.7); Basophil# 0.06 X10^3/uL; Basophil% 0.6 % (0-1); Eosinophil# 0.18 X10^3/uL; Eosinophils% 1.8 % (0-5); Hematocrit 45.8 % (37-47); Hemoglobin 15.4 g/dL (12.0-15.0); Lymphocyte # 3.45 X10^3/ul (0.83-4.51); Lymphocyte % 35.3 % (19-41); Mean Corp Hgb Conc 33.6 g/dL (32-36); Mean Corpuscular Hgb 30.3 pg (27.0-32.0); Mean Platelet Vol. 9.1 fl (6.2-12.0); Monocyte# 0.51 X10^3/uL; Monocyte% 5.2 % (0-10); NRBC Flagged by Analyzer 0 % (0-5); Neutrophil # 5.55 X10^3/uL (2.7-7.7); Neutrophil % 56.9 % (47-70); Platelet Count 353 K/mm3 (150-450); Red Blood Count 5.09 M/mm3 (4.2-5.4); White Blood Count 9.8 K/mm3 (4.4-11.0)
[2023-05-15 15:42] LABS: Anion Gap 5 (5-15); BUN 10 mg/dL (7-18); BUN/Creat Ratio 13.3 RATIO (10-20); Calcium,Total 9.2 mg/dL (8.5-10.1); Chloride 109 mmol/L (98-107); Creatinine, Serum 0.75 mg/dL (0.55-1.02); EST Glomerular Filtration Rate 89 mL/min (>60); Est Glom Filt Rate - Afr Amer 108 mL/min (>60); Glucose 83 mg/dL (74-106); Potassium 3.8 mmol/L (3.5-5.1); Sodium Level 139 mmol/L (136-145)
== END | disposition home or self-care (01) ==
PROVIDERS: Referring Provider Urology; Visit Provider Urology
DX: N20.0 Calculus of kidney (principal)
CPT/HCPCS: 36415; 80048; 85025